=== PATIENT | male | born 1940 | race Caucasian/White ===

== ENCOUNTER → 2017-04-23 | Outpatient (CLI) | payer MEDICARE, OTHER ==
[2017-04-29 10:55] LABS: LDL Size 20.4 nm (>20.5); LDL Size 2 20.4 nm (>=20.8); LDL-P (LDL Particle Number) 1418 nmol/L (<1000); Small LDL (Particle Number) 779 nmol/L (<=527)
== END | disposition home or self-care (01) ==
LOC: LABWHC1 08:31
PROVIDERS: ATTEND Internal Medicine Cardiovascular Disease
DX: I25.10 Atherosclerotic heart disease of native coronary artery without angina pectoris (principal)
CPT/HCPCS: 36415; 83704

== ENCOUNTER 2019-03-16 07:33 | Day surgery (SDC) | payer MEDICARE, OTHER ==
[2019-03-10 16:07] VITALS: BMI 31.1
[~2019-03-16 07:33] MED LIST: LACTATED RINGERS 1,000 ML IV SCH
[2019-03-16 08:16] VITALS: RESP 20; TEMP 97.8
[2019-03-16] MEDS ORDERED: PROPOFOL 10 MG/ML 20 ML VIAL IV ONE (08:22)
[2019-03-16 08:28] LABS: Glucose,Whole Blood 97 mg/dL (75-99)
--- NOTE | 2019-03-16 08:28 | P.GSHP ---
History of Present Illness H&P Date: 03/16/19 Chief Complaint: Blood in stool 78-year-old male had a recent stool study performed showing positive blood. Patient is otherwise asymptomatic. No abdominal pain. No diarrhea or constipation. Denies black stools or bloody stools grossly. Past Medical History Past Medical History: Diabetes Mellitus, Eye Disorder, Hyperlipidemia, Hypertension, Myocardial Infarction ([place]), Osteoarthritis (OA), Prostate Disorder Additional Past Medical History / Comment(s): Macular degeneration. Blood in stool. Catheter after prostate surgery for quite some time, 7-8 yrs ago. Last Myocardial Infarction Date:: 1991 History of Any Multi-Drug Resistant Organisms: None Reported Past Surgical History: Joint Replacement, Orthopedic Surgery, Prostate Surgery Additional Past Surgical History / Comment(s): Nose surgery, knee surgery, right knee replacement. Past Anesthesia/Blood Transfusion Reactions: No Reported Reaction Past Psychological History: No Psychological Hx Reported Smoking Status: Former smoker Past Alcohol Use History: None Reported Additional Past Alcohol Use History / Comment(s): Quit smoking in the . Past Drug Use History: None Reported - Past Family History Father Family Medical History: Cancer Mother Additional Family Medical History / Comment(s): Brain aneurysym. Medications and Allergies Home Medications Medication Instructions Recorded Confirmed Type Aspirin 81 mg PO HS 06/16/14 03/16/19 History Nebivolol HCl [Bystolic] 5 mg PO [facility] 06/16/14 03/16/19 History Preservision 1 tab PO DAILY 06/16/14 03/16/19 History Atorvastatin [Lipitor] 80 mg PO DAILY 03/10/19 03/10/19 History Fenofibrate Nanocrystallized 145 mg PO DAILY 03/10/19 03/16/19 History [Fenofibrate] Glimepiride [Amaryl] 1 mg PO HS 03/10/19 03/16/19 History Allergies Allergy/AdvReac Type Severity Reaction Status Date / Time acetaminophen [From Vicodin] Allergy Itching Verified 03/10/19 15:58 ciprofloxacin [From Cipro] Allergy Rash/Hives Verified 03/10/19 15:58 hydrocodone bitartrate Allergy Itching Verified 03/10/19 15:58 [From Vicodin] Penicillins Allergy Rash/Hives Verified 03/10/19 15:58 Sulfa (Sulfonamide Allergy Rash/Hives Verified 03/10/19 15:58 Antibiotics) sulfamethoxazole Allergy Rash/Hives Verified 03/10/19 15:58 [From Bactrim] trimethoprim [From Bactrim] Allergy Rash/Hives Verified 03/10/19 15:58 Surgical - Exam Vital Signs Temp Pulse Resp BP Pulse Ox 97.8 F 56 L 20 189/81 98 03/16/19 08:09 03/16/19 08:09 03/16/19 08:09 03/16/19 08:09 03/16/19 08:09 Physical exam: General: Well-developed, well-nourished HEENT: Normocephalic, sclerae nonicteric Abdomen: Nontender, nondistended Extremities: No edema Neuro: Alert and oriented Assessment and Plan (1) Blood in stool Narrative/Plan: Will proceed with colonoscopy at this time. Current Visit: Yes Status: Acute Code(s): K92.1 - MELENA SNOMED Code(s): 51058242
--- NOTE | 2019-03-16 08:50 | P.PCN ---
Date of Procedure: 03/16/19 Procedure(s) Performed: PREOPERATIVE DIAGNOSIS: Blood in stool POSTOPERATIVE DIAGNOSIS: Cecal polyp PROCEDURE: Colonoscopy with snare polypectomy ANESTHESIA: MAC SURGEON: Juan Sales M.D. SPECIMENS: Cecal polyp ENDOSCOPIC PROCEDURE: The patient was placed on the endoscopy table in the left decubitus position. The Olympus colonoscope was inserted into the anus and passed under direct visualization to the base of the cecum. The appendiceal orifice was visualized. From that point the scope was slowly withdrawn inspecting all surfaces carefully. At the base of the cecum there was a moderate sized polyp measuring about 1.5-2 cm in size. This was removed using the snare with cautery technique. Thankfully the stalk was fairly narrow. I used a Mckenna net to retrieve this. As I was inspecting the remainder of the cecum, ascending, transverse, descending, sigmoid and rectum I did not identify any abnormalities. There was no visible diverticulosis noted. Digital rectal examination was normal. The patient was taken to the recovery room in stable condition per anesthesia guidelines. RECOMMENDATIONS: Await biopsies results but would anticipate follow-up colonoscopy one to 2 years based on the size of this polyp
[2019-03-16 09:33] VITALS: BP 156/73; PULSE 52
== END 2019-03-16 10:00 | disposition home or self-care (01) ==
LOC: ORWHC2ENDO 07:33
PROVIDERS: ATTEND Surgery
DX: D12.0 Benign neoplasm of cecum (principal); K92.1 Melena; E11.9 Type 2 diabetes mellitus without complications; E78.5 Hyperlipidemia, unspecified; I25.2 Old myocardial infarction; I10 Essential (primary) hypertension; H35.30 Unspecified macular degeneration; I25.10 Atherosclerotic heart disease of native coronary artery without angina pectoris; M19.90 Unspecified osteoarthritis, unspecified site; Z87.891 Personal history of nicotine dependence; Z96.651 Presence of right artificial knee joint; Z88.5 Allergy status to narcotic agent; Z88.2 Allergy status to sulfonamides; Z88.1 Allergy status to other antibiotic agents; Z88.0 Allergy status to penicillin; Z79.84 Long term (current) use of oral hypoglycemic drugs; Z79.82 Long term (current) use of aspirin; Z79.899 Other long term (current) drug therapy; Z88.8 Allergy status to other drugs, medicaments and biological substances
CPT/HCPCS: 88305; 45385; J2704

== ENCOUNTER → 2020-08-22 | Outpatient (CLI) | payer MEDICARE | END | disposition home or self-care (01) | LOC: LABWHC1 09:06 | PROVIDERS: ATTEND Urology | DX: C61 Malignant neoplasm of prostate (principal) | CPT/HCPCS: 36415; 84153 ==

== ENCOUNTER → 2021-04-05 | Outpatient (CLI) | payer MEDICARE ==
--- NOTE | 2021-04-05 16:32 | US ---
EXAMINATION TYPE: US kidneys/renal and bladder DATE OF EXAM: 04/05/2021 COMPARISON: US 2012 CLINICAL HISTORY: N18 CKD. CKD EXAM MEASUREMENTS: Right Kidney: 10.6 x 5.7 x 5.3 cm Left Kidney: 11.4 x 5.5 x 4.7 cm Right Kidney: Appeared wnl no hydronephrosis or renal calculi. Left Kidney: Cyst lower pole= 1.4 x 1.0 x 1.2 cm,. No hydronephrosis or renal calculi. Bladder: Multiple bladder diverticula Bilateral Jets seen: No Incidental finding rim calcified lesion within right lobe of liver= 3.4 x 2.7 x 2.8 cm No evidence of hydronephrosis or renal calculi. IMPRESSION: 1. Multiple urinary bladder diverticula. This may be from chronic outlet obstruction. Clinical correl ation is recommended. 2. Left renal cyst measuring 1.4 cm at the lower pole. 3. No hydronephrosis or renal calculi are seen 4.Incidental finding rim calcified lesion within right lobe of liver= 3.4 x 2.7 x 2.8 cm
== END | disposition home or self-care (01) ==
LOC: RADUSWWP 14:54
PROVIDERS: ATTEND Family Medicine
DX: N28.1 Cyst of kidney, acquired (principal); N32.3 Diverticulum of bladder; N18.9 Chronic kidney disease, unspecified
CPT/HCPCS: 76770

== ENCOUNTER → 2021-04-29 | Outpatient (CLI) | payer MEDICARE ==
--- NOTE | 2021-04-29 20:40 | CT ---
EXAMINATION TYPE: CT abdomen wo con DATE OF EXAM: 04/29/2021 COMPARISON: Ultrasound 04/05/2021 HISTORY: Liver lesion, abdominal pelvic mass CT DLP: 391.10 mGycm Automated exposure control for dose reduction was used. TECHNIQUE: Helical acquisition of images was performed from the lung bases through the top of iliac crest to include entire abdomen. CONTRAST: Performed without Oral Contrast and without IV contrast. FINDINGS: Lack of intravenous contrast could compromise sensitivity. There are dense coronary artery calcifications. LUNG BASES: No significant abnormality is appreciated. LIVER/GB: Partially peripherally calcified low dense focus within the right lobe of the liver is agai n noted and measures approximately 3.2 cm. Additional low dense foci are present within the left lobe and also towards the dome within the right lobe which statistically are likely to represent cysts. L esion at the dome of the liver measures 2.4 cm, lesions in the left lobe are smaller and posterior ri ght lobe lesion is also present adjacent to the calcified focus measuring 16 mm PANCREAS: Bandlike area of dense calcification present within the pancreas region, suspect there may be pancreatic ductal dilation. SPLEEN: No significant abnormality is seen. ADRENALS: No significant abnormality is seen. KIDNEYS: No significant abnormality is seen. BOWEL: No significant abnormality is seen. LYMPH NODES: No significant abnormality is appreciated. OSSEOUS STRUCTURES: No significant abnormality is seen. FREE AIR: No Free Air visible ASCITES: None visible. RETROPERITONEAL ADENOPATHY: No Retroperitoneal Adenopathy visible. OTHER: IMPRESSION: Noncontrast exam. DIFFERENTIAL DIAGNOSTIC CONSIDERATIONS INCLUDE TUBERCULOMA, HYDATID DISEASE, ADDITIONAL PARASITIC INF ECTION, BILIARY CYSTADENOCARCINOMA, HEMANGIOMA. Additional findings above.
== END | disposition home or self-care (01) ==
LOC: RADCTMAIN 17:13
PROVIDERS: ATTEND Family Medicine
DX: K76.9 Liver disease, unspecified (principal)
CPT/HCPCS: 74150

== ENCOUNTER 2021-08-06 07:41 | Day surgery (SDC) | payer MEDICARE ==
[2021-08-01 10:37] VITALS: BMI 26.7
[2021-08-06 08:11] VITALS: RESP 16; TEMP 96.8
[2021-08-06 08:20] LABS: Glucose,Whole Blood 88 mg/dL (75-99)
[2021-08-06] MEDS ORDERED: PROPOFOL 10 MG/ML 20 ML VIAL IV ONE (08:39)
--- NOTE | 2021-08-06 08:39 | P.GSHP ---
History of Present Illness H&P Date: 08/06/21 Chief Complaint: Blood in stool, colon polyp 80-year-old male known to our service from colonoscopy 2 years ago. Patient had a large cecal polyp which showed tubular adenoma with low-grade dysplasia. Recently found to have occult blood in stool. Otherwise without new complaints. Past Medical History Past Medical History: Diabetes Mellitus, Eye Disorder, Hearing Disorder / Deafness, Hyperlipidemia, Hypertension, Myocardial Infarction ([place]), Osteoarthritis (OA), Prostate Disorder, Renal Disease Additional Past Medical History / Comment(s): Macular degeneration, mild renal disease,, hx. colon polyps Last Myocardial Infarction Date:: 1991 History of Any Multi-Drug Resistant Organisms: None Reported Past Surgical History: Heart Catheterization, Joint Replacement, Orthopedic Surgery, Prostate Surgery Additional Past Surgical History / Comment(s): Nose surgery, knee surgery, right knee replacement, TURP, multiple colonoscopies Past Anesthesia/Blood Transfusion Reactions: No Reported Reaction Smoking Status: Former smoker - Past Family History Father Family Medical History: Cancer Mother Additional Family Medical History / Comment(s): Brain aneurysym. Medications and Allergies Home Medications Medication Instructions Recorded Confirmed Type Aspirin 81 mg PO HS 06/16/14 08/06/21 History Vit C/E/Zn/Coppr/Lutein/Zeaxan 1 each PO DAILY 06/16/14 08/06/21 History [Preservision Areds 2 Softgel] Atorvastatin [Lipitor] 80 mg PO DAILY 03/10/19 08/06/21 History Glimepiride [Amaryl] 1 mg PO BID 03/10/19 08/06/21 History Citalopram Hydrobromide 40 mg PO DAILY 08/01/21 08/06/21 History [Citalopram HBr] Losartan/Hydrochlorothiazide 1 tab PO DAILY 08/01/21 08/06/21 History [Losartan-Hctz 100-25 mg Tab] amLODIPine BESYLATE 5 mg PO DAILY 08/01/21 08/06/21 History Allergies Allergy/AdvReac Type Severity Reaction Status Date / Time acetaminophen [From Vicodin] Allergy Itching Verified 08/06/21 08:17 ciprofloxacin [From Cipro] Allergy Rash/Hives Verified 08/06/21 08:17 hydrocodone bitartrate Allergy Itching Verified 08/06/21 08:17 [From Vicodin] Penicillins Allergy Rash/Hives Verified 08/06/21 08:17 Sulfa (Sulfonamide Allergy Rash/Hives Verified 08/06/21 08:17 Antibiotics) sulfamethoxazole Allergy Rash/Hives Verified 08/06/21 08:17 [From Bactrim] trimethoprim [From Bactrim] Allergy Rash/Hives Verified 08/06/21 08:17 Surgical - Exam Vital Signs Temp Pulse Resp BP Pulse Ox 96.8 F L 65 16 142/69 97 08/06/21 08:10 08/06/21 08:10 08/06/21 08:10 08/06/21 08:10 08/06/21 08:10 Physical exam: General: Well-developed, well-nourished HEENT: Normocephalic, sclerae nonicteric Abdomen: Nontender, nondistended Extremities: No edema Neuro: Alert and oriented Assessment and Plan (1) Blood in stool Narrative/Plan: Will proceed with colonoscopy Current Visit: No Status: Acute Code(s): K92.1 - MELENA SNOMED Code(s): 514958749
--- NOTE | 2021-08-06 09:00 | P.PCN ---
Date of Procedure: 08/06/21 Procedure(s) Performed: PREOPERATIVE DIAGNOSIS: Blood in stool, history of cecal polyp POSTOPERATIVE DIAGNOSIS: Small hepatic flexure polyp PROCEDURE: Colonoscopy with biopsy ANESTHESIA: MAC SURGEON: Juan Sales M.D. SPECIMENS: Hepatic flexure polyp ENDOSCOPIC PROCEDURE: The patient was placed on the endoscopy table in the left decubitus position. The Olympus colonoscope was inserted into the anus and passed under direct visualization to the base of the cecum. The appendiceal orifice was visualized. From that point the scope was slowly withdrawn inspecting all surfaces carefully. There were no neoplastic inflammatory or polypoid lesions throughout the cecum or ascending colon. At the hepatic flexure small polyp was seen and removed using the cold biopsy forceps. The base of the cecum did not reveal any residual polypoid tissue. A transverse descending sigmoid and rectum appeared normal. There was no visible diverticulosis. Digital rectal examination was normal. The patient was taken to the recovery room in stable condition per anesthesia guidelines. RECOMMENDATIONS: Await biopsy results. Resume diet. Follow-up colonoscopy 3-5 years.
[2021-08-06 09:23] VITALS: BP 131/70; PULSE 51
[2021-08-06 09:36] LABS: Glucose,Whole Blood 82 mg/dL (75-99)
== END 2021-08-06 09:58 | disposition home or self-care (01) ==
LOC: ORWHC2ENDO 07:41
PROVIDERS: ATTEND Surgery
DX: K92.1 Melena (principal); D12.3 Benign neoplasm of transverse colon; E78.5 Hyperlipidemia, unspecified; E11.9 Type 2 diabetes mellitus without complications; Z87.891 Personal history of nicotine dependence; M19.90 Unspecified osteoarthritis, unspecified site; H35.30 Unspecified macular degeneration; I10 Essential (primary) hypertension; I25.2 Old myocardial infarction; H91.90 Unspecified hearing loss, unspecified ear; Z79.899 Other long term (current) drug therapy; Z88.5 Allergy status to narcotic agent; Z88.0 Allergy status to penicillin; Z88.2 Allergy status to sulfonamides; I25.10 Atherosclerotic heart disease of native coronary artery without angina pectoris
CPT/HCPCS: 88305; 45380; J2704

== ENCOUNTER → 2021-12-25 | Outpatient (CLI) | payer MEDICARE ==
[2021-12-25 11:55] LABS: Appearance,Urine Clear (Clear); Bilirubin,Urine Negative (Negative); Blood,Urine Negative (Negative); Color,Urine Light Yellow; Glucose,Urine (UA) Negative (Negative); Ketones,Urine Negative (Negative); Leukocyte Esterase,Urine Negative (Negative); Nitrite,Urine Negative (Negative); Protein,Urine Negative (Negative); Specific Gravity,Urine 1.015 (1.001-1.035); Urobilinogen,Urine <2.0 mg/dL (<2.0)
[2021-12-25 12:15] LABS: Creatinine,Urine Random 86.5 mg/dL; Protein/Creatinine Ratio,Urine 0.185
[2021-12-25 18:27] LABS: Basophils # (A) 0.05 X 10*3/uL (0.00-0.10); Basophils % (A) 0.8 %; Eosinophils # (A) 0.13 X 10*3/uL (0.04-0.35); Eosinophils % (A) 2.1 %; HCT 38.8 % (39.6-50.0); HGB 12.8 g/dL (13.0-17.0); Immature Grans, Automated 0.2 %; Lymphocytes # (A) 1.64 X 10*3/uL (0.90-5.00); Lymphocytes % (A) 25.9 %; Mean Platelet Volume 10.8 fL (9.5-12.2); Monocytes # (A) 0.52 X 10*3/uL (0.20-1.00); Monocytes % (A) 8.2 %; NRBC Per 100 WBC 0 /100 WBCS (0.0-0.0); Neutrophils # (A) 3.97 X 10*3/uL (1.80-7.70); Neutrophils % (A) 62.8 %; Platelet Count 178 X 10*3/uL (140-440); RDW 12.5 % (11.5-14.5); WBC 6.32 X 10*3/uL (4.50-10.00)
[2021-12-25 18:38] LABS: % Iron Saturation 23.37 (15.00-50.00); African American GFR (CKD) 52.9 (60.0-200.0); Anion Gap 12.9 mmol/L (10.00-18.00); BUN/Creat Ratio 34.2 Ratio (12.00-20.00); Blood Urea Nitrogen 48.9 mg/dL (9.0-27.0); Calcium 9.8 mg/dL (8.7-10.3); Carbon Dioxide 22.2 mmol/L (20.0-27.5); Magnesium 1.9 mg/dL (1.5-2.4); Non-African American GFR(CKD) 45.6 (60.0-200.0); Phosphorus 3.8 mg/dL (2.4-5.1); Potassium 4.2 mmol/L (3.5-5.5); Uric Acid 7.1 mg/dL (3.7-8.7)
[2021-12-25 19:47] LABS: Hepatitis A Antibody IgM Nonreactive (Nonreactive); Hepatitis B Core IgM Nonreactive (Nonreactive); Hepatitis B Surface Antigen Nonreactive (Nonreactive); Hepatitis C IgG Antibody Nonreactive (Nonreactive)
[2021-12-25 22:00] LABS: Anti-DNA, DS unit <1.0 IU/mL; DNA Double-Stranded NEGATIVE (NEGATIVE)
[2021-12-25 22:07] LABS: Albumin 4.2 g/dL (3.8-4.9)
[2021-12-25 22:37] LABS: HIV 2 AB Non-Reactive (Non-Reactive); HIV AB P24 Non-Reactive (Non-Reactive); HIV P24 AG Non-Reactive (Non-Reactive)
[2021-12-26 11:14] LABS: Free Lambda Lt Chain Qnt, Seru 2.72 mg/dL (0.57-2.63)
[2021-12-26 13:04] LABS: C-ANCA <1:20 Titer (<1:20)
== END | disposition home or self-care (01) ==
LOC: LABWHC1 10:12
PROVIDERS: ATTEND Internal Medicine Nephrology
DX: R80.9 Proteinuria, unspecified (principal); N18.31 Chronic kidney disease, stage 3a
CPT/HCPCS: 36415; 80048; 80074; 81003; 82040; 82306; 82570; 82728; 83516; 83540; 83550; 83735; 83883; 83970; 84100; 84156; 84550; 85025; 86038; 86039; 86160; 86162; 86225; 86255; 86334; 87390

== ENCOUNTER 2022-11-13 03:12 | Inpatient (IN) | payer MEDICARE ==
[2022-11-13 03:19] LABS: Glucose,Whole Blood 31 mg/dL (70-110)
[2022-11-13] MEDS: DEXTROSE 50% SYRINGE 50 ML IVP STA ×4 (03:22→11:33)
[2022-11-13 03:47] LABS: Glucose,Whole Blood 108 mg/dL (70-110)
[2022-11-13 03:49] LABS: Basophils % (A) 0 %; Eosinophils # (A) 0.1 k/uL (0-0.7); Eosinophils % (A) 1 %; HCT 36.6 % (39.0-53.0); HGB 13.2 gm/dL (13.0-17.5); Lymphocytes # (A) 0.5 k/uL (1.0-4.8); Lymphocytes % (A) 7 %; MCH 33.2 pg (25.0-35.0); MCHC 35.9 g/dL (31.0-37.0); MCV 92.5 fL (80.0-100.0); Mean Platelet Volume 8.7; Monocytes # (A) 0.7 k/uL (0-1.0); Monocytes % (A) 10 %; Neutrophils # (A) 5.2 k/uL (1.3-7.7); Neutrophils % (A) 79 %; Platelet Count 140 k/uL (150-450); RBC 3.96 m/uL (4.30-5.90); RDW 12.7 % (11.5-15.5); WBC 6.6 k/uL (3.8-10.6)
[2022-11-13 04:06] LABS: Albumin 3.8 g/dL (3.5-5.0); Calcium 8.2 mg/dL (8.4-10.2); Magnesium 1.4 mg/dL (1.6-2.3); Potassium 3.1 mmol/L (3.5-5.1); Total Bilirubin 0.7 mg/dL (0.2-1.3); Total Protein 6.6 g/dL (6.3-8.2)
[2022-11-13 04:17] LABS: Glucose,Whole Blood 73 mg/dL (70-110)
[2022-11-13 04:48] LABS: Glucose,Whole Blood 41 mg/dL (70-110)
[2022-11-13] MEDS ORDERED: DEXTROSE 50% SYRINGE 50 ML IVP STA ×4 (04:48→14:55)
[2022-11-13] MEDS: MAGNESIUM SULFATE-D5W PMX 1 GM in DEXTROSE/WATER 1 100ML.BAG IVPB SCH ×2 (05:29→06:38)
[2022-11-13 05:30] LABS: Glucose,Whole Blood 82 mg/dL (70-110)
[2022-11-13] MEDS: POTASSIUM CHLORIDE 10 MEQ in WATER FOR INJECTION 1 100ML.BAG IVPB SCH ×4 (05:48→11:35)
[2022-11-13 06:02] LABS: Appearance,Urine Clear (Clear); Bacteria,Urine Rare /hpf; Bilirubin,Urine Negative (Negative); Blood,Urine Trace (Negative); Color,Urine Light Yellow; Glucose,Urine (UA) Negative (Negative); Ketones,Urine Negative (Negative); Leukocyte Esterase,Urine Negative (Negative); Mucus,Urine Rare /hpf; Nitrite,Urine Negative (Negative); Protein,Urine 1+ (Negative); RBC,Urine 1 /hpf (0-5); Specific Gravity,Urine 1.014 (1.001-1.035); Squamous Epithelial Cell,Urine <1 /hpf (0-4); Urobilinogen,Urine <2.0 mg/dL (<2.0); WBC,Urine 1 /hpf (0-5)
[2022-11-13 06:10] LABS: Glucose,Whole Blood 53 mg/dL (70-110)
[2022-11-13] MEDS ORDERED: NALOXONE 0.4 MG/ML 1 ML VIAL IV PRN (06:14)
--- NOTE | 2022-11-13 06:14 | ED ---
General Adult HPI - General Chief complaint: Recheck/Abnormal Lab/Rx Stated complaint: hypoglycemia Time Seen by Provider: 11/13/22 03:21 Source: EMS Mode of arrival: EMS Limitations: no limitations - History of Present Illness Initial comments: This is an 82-year-old male with a past medical history including diabetes and hypertension presented emergency department for episodes of hypoglycemia. The patient stated that he has had episodes of hypoglycemia today and noted to be weak, unable to stand so he called EMS. EMS did state that the sugar was approximately 28. The patient did receive an half an amp of D50 prior to arrival but had continued hypoglycemia. The patient was given amp here in the emergency department on evaluation. The patient continued to state that he did not have any further acute pain or complaints however the patient's daughter was at the bedside and did state the patient has had decreased by mouth intake over the last several days and at one point had not eaten anything within 36 hours. She did note that the patient's glucose was rapidly and consistent a decreasing so she was 1 a called 911 at home. The patient continued to remain stable did not take any more than his prescribed antidiabetic medications. The patient is not on insulin. The patient denied any nausea, vomiting, fevers and chills. - Related Data Home Medications Medication Instructions Recorded Confirmed Aspirin 81 mg PO HS 06/16/14 08/06/21 Vit C/E/Zn/Coppr/Lutein/Zeaxan 1 each PO DAILY 06/16/14 08/06/21 [Preservision Areds 2 Softgel] Atorvastatin [Lipitor] 80 mg PO DAILY 03/10/19 08/06/21 Glimepiride [Amaryl] 1 mg PO BID 03/10/19 08/06/21 Citalopram Hydrobromide 40 mg PO DAILY 08/01/21 08/06/21 [Citalopram HBr] Losartan/Hydrochlorothiazide 1 tab PO DAILY 08/01/21 08/06/21 [Losartan-Hctz 100-25 mg Tab] amLODIPine BESYLATE 5 mg PO DAILY 08/01/21 08/06/21 Allergies Allergy/AdvReac Type Severity Reaction Status Date / Time acetaminophen [From Vicodin] Allergy Itching Verified 08/06/21 08:17 ciprofloxacin [From Cipro] Allergy Rash/Hives Verified 08/06/21 08:17 hydrocodone bitartrate Allergy Itching Verified 08/06/21 08:17 [From Vicodin] Penicillins Allergy Rash/Hives Verified 08/06/21 08:17 Sulfa (Sulfonamide Allergy Rash/Hives Verified 08/06/21 08:17 Antibiotics) sulfamethoxazole Allergy Rash/Hives Verified 08/06/21 08:17 [From Bactrim] trimethoprim [From Bactrim] Allergy Rash/Hives Verified 08/06/21 08:17 Review of Systems ROS Statement: Those systems with pertinent positive or pertinent negative responses have been documented in the HPI. ROS Other: All systems not noted in ROS Statement are negative. Past Medical History Past Medical History: Diabetes Mellitus, Eye Disorder, Hyperlipidemia, Hypertension, Myocardial Infarction ([place]), Osteoarthritis (OA), Prostate Disorder Additional Past Medical History / Comment(s): Macular degeneration. Blood in stool. Catheter after prostate surgery for quite some time, 7-8 yrs ago. Last Myocardial Infarction Date:: 1991 History of Any Multi-Drug Resistant Organisms: None Reported Past Surgical History: Joint Replacement, Orthopedic Surgery, Prostate Surgery Additional Past Surgical History / Comment(s): Nose surgery, knee surgery, right knee replacement. Past Anesthesia/Blood Transfusion Reactions: No Reported Reaction Past Psychological History: No Psychological Hx Reported Past Alcohol Use History: None Reported Past Drug Use History: None Reported - Past Family History Father Family Medical History: Cancer Mother Additional Family Medical History / Comment(s): Brain aneurysym. General Exam Limitations: no limitations General appearance: alert, in no apparent distress Head exam: Present: atraumatic, normocephalic, normal inspection Eye exam: Present: normal appearance, PERRL Pupils: Present: normal accommodation ENT exam: Present: normal exam, normal oropharynx, mucous membranes moist Neck exam: Present: normal inspection, full ROM Respiratory exam: Present: normal lung sounds bilaterally Cardiovascular Exam: Present: regular rate, normal rhythm, normal heart sounds GI/Abdominal exam: Present: soft, normal bowel sounds Extremities exam: Present: normal inspection, full ROM Back exam: Present: normal inspection, full ROM Neurological exam: Present: alert, oriented X3, CN II-XII intact Psychiatric exam: Present: normal affect, normal mood Skin exam: Present: warm, dry Course Vital Signs 11/13/22 11/13/22 11/13/22 03:21 03:28 05:32 Temperature 98.1 F Pulse Rate 79 72 86 Respiratory 16 16 16 Rate Blood Pressure 140/75 164/72 O2 Sat by Pulse 99 96 95 Oximetry Medical Decision Making - Medical Decision Making Was pt. sent in by a medical professional or institution? @ -No Did you speak to anyone other than the patient for history? @ -Yes, patient's daughter Did you review nursing and triage notes? @ -Nursing triage notes were reviewed Were old charts reviewed? @ -No Differential Diagnosis? @ -Medication overdose, drug ingestion, acute infection EKG interpreted by me (3pts min.)? @ -[none] X-rays interpreted by me (1pt min.)? @ -[none] CT interpreted by me (1pt min.)? @ -[none] U/S interpreted by me (1pt. min.)? @ -[none] What testing was considered but not performed? (CT, X-rays, U/S, labs)? Why? @X-rays were considered however the patient didn't have any further symptoms other than isolated hyperglycemia therefore no further testing or imaging was obtained at this time. What meds were considered but not given? Why? @ -[none] Did you discuss the management of the patient with other professionals? @ -Yes, the admitting physician Did you reconcile home meds? @ -[none] Was smoking cessation discussed for >3mins.? @ -[none] Was critical care preformed (if so, how long)? @ -[none] Were there social determinants of health that impacted care today? How? (Homelessness, low income, unemployed, alcoholism, drug addiction, transportation, low edu. Level, literacy, decrease access to med. care, penitentiary, rehab)? @ -No Was there de-escalation of care discussed even if they declined? (Discuss DNR or withdrawal of care, Hospice)? @ -No What co-morbidities impacted this encounter? (DM, HTN, Smoking, COPD, CAD, Cancer, CVA, Hep., AIDS, mental health diagnosis, sleep apnea, morbid obesity)? @ -Diabetes, hypertension Was patient admitted / discharged? @ -The patient was seen and evaluated emergency department. Physical exam, the patient was resting in bed without any acute distress however the patient's glucose was 31. The patient did receive an amp of D50. The patient did receive a half an amp per EMS however the patient's glucose continued to decrease. Laboratory workup was obtained that showed an increased creatinine consistent with an EFRAÍN. The patient continued to have episodes of hypoglycemia despite its to amps of D50. Because the patient continued episodes of hypoglycemia, in the setting of EFRAÍN and decreased PO intake, the patient did require inpatient management and evaluation. The patient did have his primary care physician's covering physician, contacted and he did accept the patient for admission at [id number]. The patient and his daughter were told this plan and were agreeable. The patient was admitted in stable condition. Undiagnosed new problem with uncertain prognosis? @ -[none] Drug Therapy requiring intensive monitoring for toxicity (Heparin, Nitro, Insulin, Cardizem)? @ -[none] Were any procedures done? @ -[none] Diagnosis/symptom? @ -Recurrent hypoglycemia Acute, or Chronic, or Acute on Chronic? @ -Acute Uncomplicated (without systemic symptoms) or Complicated (systemic symptoms)? @ -Complicated Side effects of treatment? @ -[none] Exacerbation, Progression, or Severe Exacerbation] @ -[no] Poses a threat to life or bodily function? @ -Yes Diagnosis/symptom? @ -EFRAÍN Acute, or Chronic, or Acute on Chronic? @ -Acute Uncomplicated (without systemic symptoms) or Complicated (systemic symptoms)? @ -Uncomplicated Side effects of treatment? @ -[none] Exacerbation, Progression, or Severe Exacerbation] @ -[no] Poses a threat to life or bodily function? @ -[no] - Lab Data Result diagrams: 11/13/22 03:27 11/13/22 03:27 Lab Results 11/13/22 11/13/22 11/13/22 Range/Units 03:18 03:27 03:27 WBC 6.6 (3.8-10.6) k/uL RBC 3.96 L (4.30-5.90) m/uL Hgb 13.2 (13.0-17.5) gm/dL Hct 36.6 L (39.0-53.0) % MCV 92.5 (80.0-100.0) fL MCH 33.2 (25.0-35.0) pg MCHC 35.9 (31.0-37.0) g/dL RDW 12.7 (11.5-15.5) % Plt Count 140 L (150-450) k/uL MPV 8.7 Neutrophils % 79 % Lymphocytes % 7 % Monocytes % 10 % Eosinophils % 1 % Basophils % 0 % Neutrophils # 5.2 (1.3-7.7) k/uL Lymphocytes # 0.5 L (1.0-4.8) k/uL Monocytes # 0.7 (0-1.0) k/uL Eosinophils # 0.1 (0-0.7) k/uL Basophils # 0.0 (0-0.2) k/uL Sodium (137-145) mmol/L Potassium (3.5-5.1) mmol/L Chloride (98-107) mmol/L Carbon Dioxide (22-30) mmol/L Anion Gap mmol/L BUN (9-20) mg/dL Creatinine (0.66-1.25) mg/dL Est GFR (CKD-EPI)AfAm (>60 ml/min/1.73 sqM) Est GFR (CKD-EPI)NonAf (>60 ml/min/1.73 sqM) Glucose (74-99) mg/dL POC Glucose (mg/dL) 31 L (70-110) mg/dL POC Glu [employer] Super[employer] ID Leah Arias Calcium (8.4-10.2) mg/dL Magnesium (1.6-2.3) mg/dL Total Bilirubin (0.2-1.3) mg/dL AST (17-59) U/L ALT (4-49) U/L Alkaline Phosphatase (38-126) U/L Total Protein (6.3-8.2) g/dL Albumin (3.5-5.0) g/dL Urine Color Light Yellow Urine Appearance Clear (Clear) Urine pH 5.0 (5.0-8.0) Ur Specific [place] 1.014 (1.001-1.035) Urine Protein 1+ H (Negative) Urine Glucose (UA) Negative (Negative) Urine Ketones Negative (Negative) Urine Blood Trace H (Negative) Urine Nitrite Negative (Negative) Urine Bilirubin Negative (Negative) Urine Urobilinogen <2.0 (<2.0) mg/dL Ur Leukocyte Esterase Negative (Negative) Urine RBC 1 (0-5) /hpf Urine WBC 1 (0-5) /hpf Ur Squamous Epith Cells <1 (0-4) /hpf Urine Bacteria Rare H (None) /hpf Urine Mucus Rare H (None) /hpf 12/29/22 12/29/22 12/29/22 Range/Units 03:27 03:44 04:16 WBC (3.8-10.6) k/uL RBC (4.30-5.90) m/uL Hgb (13.0-17.5) gm/dL Hct (39.0-53.0) % MCV (80.0-100.0) fL MCH (25.0-35.0) pg MCHC (31.0-37.0) g/dL RDW (11.5-15.5) % Plt Count (150-450) k/uL MPV Neutrophils % % Lymphocytes % % Monocytes % % Eosinophils % % Basophils % % Neutrophils # (1.3-7.7) k/uL Lymphocytes # (1.0-4.8) k/uL Monocytes # (0-1.0) k/uL Eosinophils # (0-0.7) k/uL Basophils # (0-0.2) k/uL Sodium 138 (137-145) mmol/L Potassium 3.1 L (3.5-5.1) mmol/L Chloride 106 (98-107) mmol/L Carbon Dioxide 22 (22-30) mmol/L Anion Gap 10 mmol/L BUN 95 H (9-20) mg/dL Creatinine 2.51 H (0.66-1.25) mg/dL Est GFR (CKD-EPI)AfAm 27 (>60 ml/min/1.73 sqM) Est GFR (CKD-EPI)NonAf 23 (>60 ml/min/1.73 sqM) Glucose 26 L* (74-99) mg/dL POC Glucose (mg/dL) 108 73 (70-110) mg/dL POC Glu [employer] Supervisor ID Arias, Leah Arias, Leah Calcium 8.2 L (8.4-10.2) mg/dL Magnesium 1.4 L (1.6-2.3) mg/dL Total Bilirubin 0.7 (0.2-1.3) mg/dL AST 83 H (17-59) U/L ALT 102 H (4-49) U/L Alkaline Phosphatase 61 (38-126) U/L Total Protein 6.6 (6.3-8.2) g/dL Albumin 3.8 (3.5-5.0) g/dL Urine Color Urine Appearance (Clear) Urine pH (5.0-8.0) Ur Specific [place] (1.001-1.035) Urine Protein (Negative) Urine Glucose (UA) (Negative) Urine Ketones (Negative) Urine Blood (Negative) Urine Nitrite (Negative) Urine Bilirubin (Negative) Urine Urobilinogen (<2.0) mg/dL Ur Leukocyte Esterase (Negative) Urine RBC (0-5) /hpf Urine WBC (0-5) /hpf Ur Squamous Epith Cells (0-4) /hpf Urine Bacteria (None) /hpf Urine Mucus (None) /hpf 11/13/22 11/13/22 Range/Units 04:46 05:28 WBC (3.8-10.6) k/uL RBC (4.30-5.90) m/uL Hgb (13.0-17.5) gm/dL Hct (39.0-53.0) % MCV (80.0-100.0) fL MCH (25.0-35.0) pg MCHC (31.0-37.0) g/dL RDW (11.5-15.5) % Plt Count (150-450) k/uL MPV Neutrophils % % Lymphocytes % % Monocytes % % Eosinophils % % Basophils % % Neutrophils # (1.3-7.7) k/uL Lymphocytes # (1.0-4.8) k/uL Monocytes # (0-1.0) k/uL Eosinophils # (0-0.7) k/uL Basophils # (0-0.2) k/uL Sodium (137-145) mmol/L Potassium (3.5-5.1) mmol/L Chloride (98-107) mmol/L Carbon Dioxide (22-30) mmol/L Anion Gap mmol/L BUN (9-20) mg/dL Creatinine (0.66-1.25) mg/dL Est GFR (CKD-EPI)AfAm (>60 ml/min/1.73 sqM) Est GFR (CKD-EPI)NonAf (>60 ml/min/1.73 sqM) Glucose (74-99) mg/dL POC Glucose (mg/dL) 41 L 82 (70-110) mg/dL POC Glu [employer] Supervisor ID Arias, Leah Arias, Leah Calcium (8.4-10.2) mg/dL Magnesium (1.6-2.3) mg/dL Total Bilirubin (0.2-1.3) mg/dL AST (17-59) U/L ALT (4-49) U/L Alkaline Phosphatase (38-126) U/L Total Protein (6.3-8.2) g/dL Albumin (3.5-5.0) g/dL Urine Color Urine Appearance (Clear) Urine pH (5.0-8.0) Ur Specific [place] (1.001-1.035) Urine Protein (Negative) Urine Glucose (UA) (Negative) Urine Ketones (Negative) Urine Blood (Negative) Urine Nitrite (Negative) Urine Bilirubin (Negative) Urine Urobilinogen (<2.0) mg/dL Ur Leukocyte Esterase (Negative) Urine RBC (0-5) /hpf Urine WBC (0-5) /hpf Ur Squamous Epith Cells (0-4) /hpf Urine Bacteria (None) /hpf Urine Mucus (None) /hpf Disposition Clinical Impression: Hypoglycemia, EFRAÍN (acute kidney injury) Disposition: ADMITTED IP TO THIS [facility] Condition: Stable Is patient prescribed a controlled substance at d/c from ED?: No Referrals: Nonstaff,Physician [Primary Care Provider] - 1-2 days Time of Disposition: 05:00 Decision to Admit Reason: Admit from EC Decision Date: 11/13/22 Decision Time: 05:00
[2022-11-13 06:47] LABS: Glucose,Whole Blood 44 mg/dL (70-110)
[2022-11-13] MEDS ORDERED: DEXTROSE 10% IN WATER 1,000 ML with SODIUM CHLORIDE 4MEQ/ML VIAL 77 MEQ IV ONE (06:49)
[2022-11-13 07:21] LABS: Glucose,Whole Blood 105 mg/dL (70-110)
[2022-11-13] MEDS: DEXTROSE 5%-0.9% NACL 1,000 ML IV SCH ×2 (07:32→21:56)
[2022-11-13 08:04] LABS: Glucose,Whole Blood 47 mg/dL (70-110)
[2022-11-13 08:23] LABS: Glucose,Whole Blood 218 mg/dL (70-110)
[2022-11-13 08:50] LABS: Glucose,Whole Blood 123 mg/dL (70-110)
[2022-11-13 09:22] LABS: Glucose,Whole Blood 79 mg/dL (70-110)
[2022-11-13 10:05] LABS: Glucose,Whole Blood 67 mg/dL (70-110)
[2022-11-13] MEDS: DEXTROSE 10% IN WATER 1,000 ML in EMPTY BAG 1 BAG IV SCH (10:26)
[2022-11-13 10:27] LABS: Glucose,Whole Blood 100 mg/dL (70-110)
[2022-11-13 10:55] LABS: Glucose,Whole Blood 79 mg/dL (70-110)
[2022-11-13 11:29] LABS: Glucose,Whole Blood 63 mg/dL (70-110)
[2022-11-13 11:53] LABS: Glucose,Whole Blood 149 mg/dL (70-110)
[2022-11-13 12:11] LABS: Glucose,Whole Blood 89 mg/dL (70-110)
--- NOTE | 2022-11-13 12:11 | P.NPCON ---
History of Present Illness - Reason for Consult acute renal failure, chronic renal failure - History of Present Illness Reason for consultation: Acute kidney injury on chronic kidney disease History of present illness: Patient is a 82-year-old male seen in renal consultation for acute kidney injury on chronic kidney disease. Patient has chronic kidney disease stage IIIA with baseline creatinine near 1.4 secondary to nephrosclerosis and diabetic kidney disease. Patient's serologies from December 2021 were negative except for positive MAYELIN. Patient states his blood sugars have been low and was as low as 35 at 3 AM today. Patient called EMS and was given glucose. Patient's blood sugar was noted to be as low as 26 this admission. Patient has received multiple amps of dextrose with improvement in blood sugar but then drops again. Patient's creatinine on admission was 2.51. Has been waiting. Denies gross hematuria. Denies use of nonsteroidals. Was taking losartan as well as thiazide diuretic at home which are both currently held. Currently receiving IV fluids. Denies fever or chills. Blood pressure stable. On room air. Vital signs are stable. General: Awake. No acute distress. HEENT: Head exam is unremarkable. LUNGS: Breath sounds decreased. HEART: Rate and Rhythm are regular. ABDOMEN: Soft, no distention. EXTREMITITES: No edema. Past Medical History Past Medical History: Diabetes Mellitus, Eye Disorder, Hyperlipidemia, Hypertension, Myocardial Infarction ([place]), Osteoarthritis (OA), Prostate Disorder Additional Past Medical History / Comment(s): Macular degeneration. Blood in stool. Catheter after prostate surgery for quite some time, 7-8 yrs ago. Last Myocardial Infarction Date:: 1991 History of Any Multi-Drug Resistant Organisms: None Reported Past Surgical History: Joint Replacement, Orthopedic Surgery, Prostate Surgery Additional Past Surgical History / Comment(s): Nose surgery, knee surgery, right knee replacement. Past Anesthesia/Blood Transfusion Reactions: No Reported Reaction Past Psychological History: No Psychological Hx Reported Past Alcohol Use History: None Reported Past Drug Use History: None Reported - Past Family History Father Family Medical History: Cancer Mother Additional Family Medical History / Comment(s): Brain aneurysym. Medications and Allergies Home Medications Medication Instructions Recorded Confirmed Type Aspirin 81 mg PO DAILY 06/16/14 11/13/22 History Vit C/E/Zn/Coppr/Lutein/Zeaxan 1 cap PO BID 06/16/14 11/13/22 History [Preservision Areds 2 Softgel] Atorvastatin [Lipitor] 80 mg PO DAILY 03/10/19 11/13/22 History Glimepiride [Amaryl] 1 mg PO BID 03/10/19 11/13/22 History Citalopram Hydrobromide 40 mg PO DAILY 08/01/21 11/13/22 History [Citalopram HBr] Losartan/Hydrochlorothiazide 1 tab PO DAILY 08/01/21 11/13/22 History [Losartan-Hctz 100-25 mg Tab] amLODIPine BESYLATE 5 mg PO DAILY PRN 08/01/21 11/13/22 History Cholecalciferol (Vitamin D3) 75 mcg PO DAILY 11/13/22 11/13/22 History [Vitamin D3 (3000 Iu)] Mirabegron [Myrbetriq] 50 mg PO DAILY 11/13/22 11/13/22 History Vitamin B Complex 1 cap PO DAILY 11/13/22 11/13/22 History Allergies Allergy/AdvReac Type Severity Reaction Status Date / Time ciprofloxacin [From Cipro] Allergy Rash/Hives Verified 11/13/22 07:55 hydrocodone bitartrate Allergy Itching Verified 11/13/22 07:55 [From Vicodin] Penicillins Allergy Rash/Hives Verified 11/13/22 07:55 Sulfa (Sulfonamide Allergy Rash/Hives Verified 11/13/22 07:55 Antibiotics) sulfamethoxazole Allergy Rash/Hives Verified 11/13/22 07:55 [From Bactrim] trimethoprim [From Bactrim] Allergy Rash/Hives Verified 11/13/22 07:55 Physical Exam Vitals: Vital Signs Temp Pulse Resp BP Pulse Ox 11/13/22 10:19 71 20 146/74 11/13/22 09:00 76 22 140/70 95 11/13/22 08:42 99.2 F 90 18 169/74 95 11/13/22 08:00 99.4 F 77 18 156/78 94 L 11/13/22 07:38 75 18 165/74 94 L 11/13/22 06:00 98.4 F 76 16 152/75 95 11/13/22 05:32 86 16 164/72 95 11/13/22 03:28 72 16 96 11/13/22 03:21 98.1 F 79 16 140/75 99 Intake and Output 11/12/22 11/13/22 11/13/22 22:59 06:59 14:59 Other: Weight 86.183 kg Results - Lab Results Most recent lab results Calcium 8.2 mg/dL (8.4-10.2) L 11/13/22 03:27 Magnesium 1.4 mg/dL (1.6-2.3) L 11/13/22 03:27 11/13/22 03:27 11/13/22 03:27 Assessment and Plan Plan: Assessment: 1. Acute kidney injury mostly prerenal secondary to poor intake and further worsened with the use of RYAN inhibitor and diuretic. Creatinine 2.51 on admission. 2. Hypokalemia from poor intake and diuretic use. 3. Hypomagnesemia from poor intake and diuretic use. 4. Diabetes with hypoglycemia. 5. Hypertension with chronic kidney disease. Stable. 6. Chronic kidney disease stage IIIB with baseline creatinine near 1.4 secondar y to nephrosclerosis and diabetic kidney disease. Serologies in the past have been negative except for positive MAYELIN. Plan: Start D5 normal saline at 75 mL an hour. Potassium and magnesium replaced. Hold RYAN inhibitor and diuretics. Check renal ultrasound. Check bladder scan to rule out urinary retention. Avoid nephrotoxins. Continue to monitor renal function and urine output. Thank you for the consultation. I will continue to follow the patient with you during his hospital stay.
[2022-11-13 12:55] LABS: Glucose,Whole Blood 48 mg/dL (70-110)
--- NOTE | 2022-11-13 13:10 | US ---
EXAMINATION TYPE: US kidneys/renal and bladder DATE OF EXAM: 11/13/2022 COMPARISON: NONE CLINICAL HISTORY: bony. bony EXAM MEASUREMENTS: Right Kidney: 9.6 x 4.7 x 5.0 cm Left Kidney: 10.5 x 5.6 x 4.6 cm Right Kidney: No hydronephrosis or masses seen Left Kidney: Renal cyst from previous not well seen on today's study. Bladder: anechoic diverticuli . Urinary bladder wall thickening may be present. This could be related to nondistention. Bilateral Jets seen: Yes IMPRESSION: 1. Urinary bladder may have thickened wall and urinary bladder diverticuli. Correlate for neurogenic bladder. 2. Minimal ultrasound otherwise appears unremarkable.
[2022-11-13 13:33] LABS: Glucose,Whole Blood 145 mg/dL (70-110)
[2022-11-13 14:09] LABS: Glucose,Whole Blood 80 mg/dL (70-110)
[2022-11-13 14:47] LABS: Glucose,Whole Blood 58 mg/dL (70-110)
[2022-11-13] MEDS ORDERED: amLODIPine 5 MG TAB PO PRN (15:10)
--- NOTE | 2022-11-13 15:14 | P.HPIM ---
History of Present Illness H&P Date: 11/13/22 Chief Complaint: low blood sugars 82-year-old male with a past medical history including diabetes on oral hypoglycemics ''glimipiride'' and hypertension presented emergency department for episodes of hypoglycemia. The patient stated that he has had episodes of hypoglycemia today and noted to be weak, unable to stand so he called EMS. EMS did state that the sugar was approximately 28. The patient did receive D50 prior to arrival to the ER and in the ER due to continued hypoglycemia. He was started on D5W gtt. He continued to ahve low glucose despite that. Patient states that recently over the past several days he has been sick with diarrhea, vomiting, and flulike symptoms including cough since last Thursday. He has not been eating or drinking much due to being sick. He denied having any fever..The patient continued to take his prescribed antidiabetic medications. Review of Systems Complete review of system performed, pertinent positives per HPI, otherwise negative Past Medical History Past Medical History: Diabetes Mellitus, Eye Disorder, Hyperlipidemia, Hypertension, Myocardial Infarction (AL), Osteoarthritis (OA), Prostate Disorder Additional Past Medical History / Comment(s): Macular degeneration. Blood in stool. Catheter after prostate surgery for quite some time, 7-8 yrs ago. Last Myocardial Infarction Date:: 1991 History of Any Multi-Drug Resistant Organisms: None Reported Past Surgical History: Joint Replacement, Orthopedic Surgery, Prostate Surgery Additional Past Surgical History / Comment(s): Nose surgery, knee surgery, right knee replacement. Past Anesthesia/Blood Transfusion Reactions: No Reported Reaction Past Psychological History: No Psychological Hx Reported Past Alcohol Use History: None Reported Past Drug Use History: None Reported - Past Family History Father Family Medical History: Cancer Mother Additional Family Medical History / Comment(s): Brain aneurysym. Medications and Allergies Home Medications Medication Instructions Recorded Confirmed Type Aspirin 81 mg PO DAILY 06/16/14 11/13/22 History Vit C/E/Zn/Coppr/Lutein/Zeaxan 1 cap PO BID 06/16/14 11/13/22 History [Preservision Areds 2 Softgel] Atorvastatin [Lipitor] 80 mg PO DAILY 03/10/19 11/13/22 History Glimepiride [Amaryl] 1 mg PO BID 03/10/19 11/13/22 History Citalopram Hydrobromide 40 mg PO DAILY 08/01/21 11/13/22 History [Citalopram HBr] Losartan/Hydrochlorothiazide 1 tab PO DAILY 08/01/21 11/13/22 History [Losartan-Hctz 100-25 mg Tab] amLODIPine BESYLATE 5 mg PO DAILY PRN 08/01/21 11/13/22 History Cholecalciferol (Vitamin D3) 75 mcg PO DAILY 11/13/22 11/13/22 History [Vitamin D3 (3000 Iu)] Mirabegron [Myrbetriq] 50 mg PO DAILY 11/13/22 11/13/22 History Vitamin B Complex 1 cap PO DAILY 11/13/22 11/13/22 History Allergies Allergy/AdvReac Type Severity Reaction Status Date / Time ciprofloxacin [From Cipro] Allergy Rash/Hives Verified 11/13/22 07:55 hydrocodone bitartrate Allergy Itching Verified 11/13/22 07:55 [From Vicodin] Penicillins Allergy Rash/Hives Verified 11/13/22 07:55 Sulfa (Sulfonamide Allergy Rash/Hives Verified 11/13/22 07:55 Antibiotics) sulfamethoxazole Allergy Rash/Hives Verified 11/13/22 07:55 [From Bactrim] trimethoprim [From Bactrim] Allergy Rash/Hives Verified 11/13/22 07:55 Physical Exam Vitals: Vital Signs Temp Pulse Resp BP Pulse Ox 11/13/22 10:19 71 20 146/74 11/13/22 09:00 76 22 140/70 95 11/13/22 08:42 99.2 F 90 18 169/74 95 11/13/22 08:00 99.4 F 77 18 156/78 94 L 11/13/22 07:38 75 18 165/74 94 L 11/13/22 06:00 98.4 F 76 16 152/75 95 11/13/22 05:32 86 16 164/72 95 11/13/22 03:28 72 16 96 11/13/22 03:21 98.1 F 79 16 140/75 99 Intake and Output 11/13/22 11/13/22 11/13/22 06:59 14:59 22:59 Other: Weight 86.183 kg Constitutional: No acute distress, conversant, pleasant Eyes:Anicteric sclerae, moist conjunctiva, no lid-lag, PERRLA, ENMT: Oropharynx clear, no erythema, exudates Neck: Supple, FROM, no masses, or JVD, No carotid bruits, No thyromegaly Lungs: Clear to auscultation, Clear to percussion, Normal respiratory effort, no accessory muscle use Cardiovascular: Heart regular in rate and rhythm, No murmurs, gallops, or rubs, No peripheral edema Abdominal: Soft, Nontender, no guarding, rebound or rigidity, Normoactive bowel sounds, No hepatomegaly, No splenomegaly, No palpable mass Skin: Normal temperature, tone, texture, turgor, no induration, No subcutaneous nodules, No rash, lesions, No ulcers Extremities: No digital cyanosis, No clubbing, Pedal pulses intact and symmetrical, Radial pulses intact and symmetrical, No calf tenderness Psychiatric: Alert and oriented to person, place and time, appropriate affect, intact judgement Neuro: Muscles Strength 5/5 in all 4 extremities, Sensation to light touch grossly present throughout, Cranial nerves II-XII grossly intact, no focal sensory deficits Results CBC & Chem 7: 11/13/22 03:27 11/13/22 03:27 Labs: Abnormal Lab Results - Last 24 Hours (Table) 11/13/22 11/13/22 11/13/22 Range/Units 03:18 03:27 03:27 RBC 3.96 L (4.30-5.90) m/uL Hct 36.6 L (39.0-53.0) % Plt Count 140 L (150-450) k/uL Lymphocytes # 0.5 L (1.0-4.8) k/uL Potassium (3.5-5.1) mmol/L BUN (9-20) mg/dL Creatinine (0.66-1.25) mg/dL Glucose (74-99) mg/dL POC Glucose (mg/dL) 31 L (70-110) mg/dL Calcium (8.4-10.2) mg/dL Magnesium (1.6-2.3) mg/dL AST (17-59) U/L ALT (4-49) U/L Urine Protein 1+ H (Negative) Urine Blood Trace H (Negative) Urine Bacteria Rare H (None) /hpf Urine Mucus Rare H (None) /hpf 11/13/22 11/13/22 11/13/22 Range/Units 03:27 04:46 06:09 RBC (4.30-5.90) m/uL Hct (39.0-53.0) % Plt Count (150-450) k/uL Lymphocytes # (1.0-4.8) k/uL Potassium 3.1 L (3.5-5.1) mmol/L BUN 95 H (9-20) mg/dL Creatinine 2.51 H (0.66-1.25) mg/dL Glucose 26 L* (74-99) mg/dL POC Glucose (mg/dL) 41 L 53 L (70-110) mg/dL Calcium 8.2 L (8.4-10.2) mg/dL Magnesium 1.4 L (1.6-2.3) mg/dL AST 83 H (17-59) U/L ALT 102 H (4-49) U/L Urine Protein (Negative) Urine Blood (Negative) Urine Bacteria (None) /hpf Urine Mucus (None) /hpf 11/13/22 11/13/22 11/13/22 Range/Units 06:45 08:01 08:21 RBC (4.30-5.90) m/uL Hct (39.0-53.0) % Plt Count (150-450) k/uL Lymphocytes # (1.0-4.8) k/uL Potassium (3.5-5.1) mmol/L BUN (9-20) mg/dL Creatinine (0.66-1.25) mg/dL Glucose (74-99) mg/dL POC Glucose (mg/dL) 44 L 47 L 218 H (70-110) mg/dL Calcium (8.4-10.2) mg/dL Magnesium (1.6-2.3) mg/dL AST (17-59) U/L ALT (4-49) U/L Urine Protein (Negative) Urine Blood (Negative) Urine Bacteria (None) /hpf Urine Mucus (None) /hpf 11/13/22 11/13/22 11/13/22 Range/Units 08:47 09:52 11:26 RBC (4.30-5.90) m/uL Hct (39.0-53.0) % Plt Count (150-450) k/uL Lymphocytes # (1.0-4.8) k/uL Potassium (3.5-5.1) mmol/L BUN (9-20) mg/dL Creatinine (0.66-1.25) mg/dL Glucose (74-99) mg/dL POC Glucose (mg/dL) 123 H 67 L 63 L (70-110) mg/dL Calcium (8.4-10.2) mg/dL Magnesium (1.6-2.3) mg/dL AST (17-59) U/L ALT (4-49) U/L Urine Protein (Negative) Urine Blood (Negative) Urine Bacteria (None) /hpf Urine Mucus (None) /hpf 11/13/22 11/13/22 11/13/22 Range/Units 11:51 12:54 13:31 RBC (4.30-5.90) m/uL Hct (39.0-53.0) % Plt Count (150-450) k/uL Lymphocytes # (1.0-4.8) k/uL Potassium (3.5-5.1) mmol/L BUN (9-20) mg/dL Creatinine (0.66-1.25) mg/dL Glucose (74-99) mg/dL POC Glucose (mg/dL) 149 H 48 L 145 H (70-110) mg/dL Calcium (8.4-10.2) mg/dL Magnesium (1.6-2.3) mg/dL AST (17-59) U/L ALT (4-49) U/L Urine Protein (Negative) Urine Blood (Negative) Urine Bacteria (None) /hpf Urine Mucus (None) /hpf 11/13/22 Range/Units 14:45 RBC (4.30-5.90) m/uL Hct (39.0-53.0) % Plt Count (150-450) k/uL Lymphocytes # (1.0-4.8) k/uL Potassium (3.5-5.1) mmol/L BUN (9-20) mg/dL Creatinine (0.66-1.25) mg/dL Glucose (74-99) mg/dL POC Glucose (mg/dL) 58 L (70-110) mg/dL Calcium (8.4-10.2) mg/dL Magnesium (1.6-2.3) mg/dL AST (17-59) U/L ALT (4-49) U/L Urine Protein (Negative) Urine Blood (Negative) Urine Bacteria (None) /hpf Urine Mucus (None) /hpf Assessment and Plan Plan: Hypoglycemia secondary to glimipiride Change D5 to D10 drip. Continue blood sugar checks every 30 minutes to 1 hour. Encourage oral intake. Hold oral hypoglycemics. Hypokalemia Hypomagnesemia Replace and follow in a.m. EFRAÍN Seen by nephrology Renal ultrasound Hold losartan and HCTZ IV fluids Check renal function in a.m. Chronic Hyperlipidemia, Hypertension, Osteoarthritis (OA) All stable Resume meds Admit to inpatient, expected length of stay > 2 midnights
[2022-11-13 15:46] LABS: Glucose,Whole Blood 80 mg/dL (70-110)
[2022-11-13 16:29] LABS: Glucose,Whole Blood 213 mg/dL (70-110)
[2022-11-13 16:55] LABS: Glucose,Whole Blood 89 mg/dL (70-110)
[2022-11-13 18:20] LABS: Glucose,Whole Blood 207 mg/dL (70-110)
[2022-11-13 19:11] LABS: Glucose,Whole Blood 73 mg/dL (70-110)
[2022-11-13 21:08] LABS: Glucose,Whole Blood 82 mg/dL (70-110)
[2022-11-13 23:46] LABS: Glucose,Whole Blood 80 mg/dL (70-110)
[2022-11-14] MEDS: DEXTROSE 10% IN WATER 1,000 ML in EMPTY BAG 1 BAG IV SCH (01:17)
[2022-11-14 02:12] LABS: Glucose,Whole Blood 104 mg/dL (70-110)
[2022-11-14 03:55] LABS: Glucose,Whole Blood 98 mg/dL (70-110)
[2022-11-14 06:04] LABS: Glucose,Whole Blood 73 mg/dL (70-110)
[2022-11-14 06:42] LABS: Calcium 7.6 mg/dL (8.4-10.2); Magnesium 1.5 mg/dL (1.6-2.3)
[2022-11-14 06:51] LABS: Potassium 2.7 mmol/L (3.5-5.1)
[2022-11-14] MEDS ORDERED: MAGNESIUM SULFATE-D5W PMX 1 GM in DEXTROSE/WATER 1 100ML.BAG IVPB ONE ×2 (07:30→13:12)
[2022-11-14] MEDS: POTASSIUM CHLORIDE ER 20 MEQ TAB.ER PO SCH ×4 (07:43→11:11)
[2022-11-14] MEDS: DEXTROSE 5%-0.9% NACL 1,000 ML IV SCH ×2 (07:43→13:30)
[2022-11-14] MEDS: CHOLECALCIFEROL 25 MCG (1000 IU) TABLET PO SCH (08:38)
[2022-11-14] MEDS: ASPIRIN 81 MG PO SCH (08:38)
[2022-11-14] MEDS: CITALOPRAM HYDROBROMIDE 20 MG TAB PO SCH (08:38)
[2022-11-14] MEDS: ATORVASTATIN 80 MG TAB PO SCH (08:38)
[2022-11-14] MEDS ORDERED: LOSARTAN-HCTZ 50-12.5 MG 1 EACH TAB PO SCH (09:00)
[2022-11-14 10:30] LABS: Glucose,Whole Blood 203 mg/dL (70-110)
[2022-11-14] MEDS: NON FORMULARY DRUG (Mirabegron [Myrbetriq] 50 MG Tab.Er.24h) PO SCH (10:48)
[2022-11-14 12:19] LABS: Glucose,Whole Blood 153 mg/dL (70-110)
--- NOTE | 2022-11-14 12:34 | P.PN ---
Subjective Progress Note Date: 11/14/22 Principal diagnosis: hypoglycemia Patient just wants to sleep, he does not want to wake up to eat his meals. He states he is tired. No pain, no sob. No fevers. Objective - Vital Signs Vital signs: Vital Signs Temp 99.7 F H 11/13/22 21:57 Pulse 78 11/14/22 06:49 Resp 16 11/14/22 06:49 BP 153/75 11/14/22 06:49 Pulse Ox 94 L 11/14/22 06:49 FiO2 - Exam Constitutional: No acute distress, conversant, pleasant Eyes:Anicteric sclerae, moist conjunctiva, no lid-lag, PERRLA, ENMT: Oropharynx clear, no erythema, exudates Neck: Supple, FROM, no masses, or JVD, No carotid bruits, No thyromegaly Lungs: Clear to auscultation, Clear to percussion, Normal respiratory effort, no accessory muscle use Cardiovascular: Heart regular in rate and rhythm, No murmurs, gallops, or rubs, No peripheral edema Abdominal: Soft, Nontender, no guarding, rebound or rigidity, Normoactive bowel sounds, No hepatomegaly, No splenomegaly, No palpable mass Skin: Normal temperature, tone, texture, turgor, no induration, No subcutaneous nodules, No rash, lesions, No ulcers Extremities: No digital cyanosis, No clubbing, Pedal pulses intact and symmetrical, Radial pulses intact and symmetrical, No calf tenderness Psychiatric: Alert and oriented to person, place and time, appropriate affect, intact judgement Neuro: Muscles Strength 5/5 in all 4 extremities, Sensation to light touch grossly present throughout, Cranial nerves II-XII grossly intact, no focal sensory deficits - Labs CBC & Chem 7: 11/13/22 03:27 11/14/22 05:53 Labs: Abnormal Lab Results - Last 24 Hours (Table) 11/13/22 11/13/22 11/13/22 Range/Units 12:54 13:31 14:45 Potassium (3.5-5.1) mmol/L Chloride (98-107) mmol/L Carbon Dioxide (22-30) mmol/L BUN (9-20) mg/dL Creatinine (0.66-1.25) mg/dL Glucose (74-99) mg/dL POC Glucose (mg/dL) 48 L 145 H 58 L (70-110) mg/dL Calcium (8.4-10.2) mg/dL Magnesium (1.6-2.3) mg/dL 11/13/22 11/13/22 11/14/22 Range/Units 16:26 18:05 05:53 Potassium 2.7 L* (3.5-5.1) mmol/L Chloride 111 H (98-107) mmol/L Carbon Dioxide 19 L (22-30) mmol/L BUN 83 H (9-20) mg/dL Creatinine 2.35 H (0.66-1.25) mg/dL Glucose 102 H (74-99) mg/dL POC Glucose (mg/dL) 213 H 207 H (70-110) mg/dL Calcium 7.6 L (8.4-10.2) mg/dL Magnesium 1.5 L (1.6-2.3) mg/dL 11/14/22 11/14/22 Range/Units 10:17 12:17 Potassium (3.5-5.1) mmol/L Chloride (98-107) mmol/L Carbon Dioxide (22-30) mmol/L BUN (9-20) mg/dL Creatinine (0.66-1.25) mg/dL Glucose (74-99) mg/dL POC Glucose (mg/dL) 203 H 153 H (70-110) mg/dL Calcium (8.4-10.2) mg/dL Magnesium (1.6-2.3) mg/dL Assessment and Plan Plan: Hypoglycemia secondary to glimipiride Continue D5. Continue blood sugar checks every 1 hour. Encourage oral intake. Hold oral hypoglycemics. Hypokalemia Hypomagnesemia Replace and follow in a.m. EFRAÍN Seen by nephrology Renal ultrasound unremarkable Hold losartan and HCTZ IV fluids Check renal function in a.m. Chronic Hyperlipidemia, Hypertension, Osteoarthritis (OA) All stable Resume meds
[2022-11-14] MEDS: SODIUM CHLORIDE 0.9% 1,000 ML IV SCH (13:28)
--- NOTE | 2022-11-14 14:57 | P.PN ---
Subjective Patient is seen in follow-up for acute kidney injury on chronic kidney disease. Renal function is better. Receiving IV fluids. Oral intake fair. Blood sugar near 150 this morning. Vital signs are stable. General: Awake. No acute distress. HEENT: Head exam is unremarkable. LUNGS: Breath sounds decreased. HEART: Rate and Rhythm are regular. ABDOMEN: Soft, no tenderness. EXTREMITITES: No edema. Objective - Vital Signs Vital signs: Vital Signs Temp 99.7 F H 11/13/22 21:57 Pulse 78 11/14/22 06:49 Resp 16 11/14/22 06:49 BP 153/75 11/14/22 06:49 Pulse Ox 94 L 11/14/22 06:49 FiO2 - Labs CBC & Chem 7: 11/13/22 03:27 11/14/22 05:53 Labs: Abnormal Lab Results - Last 24 Hours (Table) 11/13/22 11/13/22 11/14/22 Range/Units 16:26 18:05 05:53 Potassium 2.7 L* (3.5-5.1) mmol/L Chloride 111 H (98-107) mmol/L Carbon Dioxide 19 L (22-30) mmol/L BUN 83 H (9-20) mg/dL Creatinine 2.35 H (0.66-1.25) mg/dL Glucose 102 H (74-99) mg/dL POC Glucose (mg/dL) 213 H 207 H (70-110) mg/dL Calcium 7.6 L (8.4-10.2) mg/dL Magnesium 1.5 L (1.6-2.3) mg/dL 11/14/22 11/14/22 Range/Units 10:17 12:17 Potassium (3.5-5.1) mmol/L Chloride (98-107) mmol/L Carbon Dioxide (22-30) mmol/L BUN (9-20) mg/dL Creatinine (0.66-1.25) mg/dL Glucose (74-99) mg/dL POC Glucose (mg/dL) 203 H 153 H (70-110) mg/dL Calcium (8.4-10.2) mg/dL Magnesium (1.6-2.3) mg/dL Assessment and Plan Plan: Assessment: 1. Acute kidney injury mostly prerenal secondary to poor intake and further worsened with the use of RYAN inhibitor and diuretic. Creatinine 2.51 on admission - 2.35 today. No hydronephrosis noted on kidney ultrasound. 2. Hypokalemia from poor intake and diuretic use. 3. Hypomagnesemia from poor intake and diuretic use. 4. Diabetes with hypoglycemia. 5. Hypertension with chronic kidney disease. Stable. 6. 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 Serologies in the past have been negative except for positive MAYELIN. Plan: Maintain IV fluids. Replace potassium and magnesium. Hold RYAN inhibitor and diuretics. Avoid nephrotoxins. Continue to monitor renal function and urine output.
[2022-11-14 17:08] LABS: Glucose,Whole Blood 178 mg/dL (70-110)
[2022-11-14 21:05] LABS: Glucose,Whole Blood 204 mg/dL (70-110)
[2022-11-15 02:04] LABS: Glucose,Whole Blood 177 mg/dL (70-110)
[2022-11-15] MEDS: SODIUM CHLORIDE 0.9% 1,000 ML IV SCH ×2 (02:16→16:50)
[2022-11-15 07:06] LABS: Glucose,Whole Blood 152 mg/dL (70-110)
[2022-11-15] MEDS: ASPIRIN 81 MG PO SCH (07:59)
[2022-11-15] MEDS: CHOLECALCIFEROL 25 MCG (1000 IU) TABLET PO SCH (07:59)
[2022-11-15] MEDS: CITALOPRAM HYDROBROMIDE 20 MG TAB PO SCH (07:59)
[2022-11-15] MEDS: ATORVASTATIN 80 MG TAB PO SCH (07:59)
[2022-11-15] MEDS: NON FORMULARY DRUG (Mirabegron [Myrbetriq] 50 MG Tab.Er.24h) PO SCH (08:00)
[2022-11-15 08:56] LABS: Basophils # (A) 0.02 X 10*3/uL (0.00-0.10); Basophils % (A) 0.3 %; Eosinophils # (A) 0.22 X 10*3/uL (0.04-0.35); HGB 11.7 g/dL (13.0-17.0); Immature Grans, Automated 0.3 %; Lymphocytes # (A) 0.93 X 10*3/uL (0.90-5.00); Lymphocytes % (A) 12.7 %; MCH 31.3 pg (27.0-32.0); MCHC 33.4 g/dL (32.0-37.0); MCV 93.6 fL (80.0-97.0); Mean Platelet Volume 11.5 fL (9.5-12.2); Monocytes # (A) 1.09 X 10*3/uL (0.20-1.00); Monocytes % (A) 14.9 %; NRBC Per 100 WBC 0 /100 WBCS (0.0-0.0); Neutrophils # (A) 5.03 X 10*3/uL (1.80-7.70); Neutrophils % (A) 68.8 %; Platelet Count 105 X 10*3/uL (140-440); RBC 3.74 X 10*6/uL (4.40-5.60); RDW 12.5 % (11.5-14.5); WBC 7.31 X 10*3/uL (4.50-10.00)
[2022-11-15 10:33] LABS: African American GFR (CKD) 27.8 (60.0-200.0); BUN/Creat Ratio 30.91 Ratio (12.00-20.00); Blood Urea Nitrogen 74.8 mg/dL (9.0-27.0); Calcium 8.2 mg/dL (8.7-10.3); Carbon Dioxide 18.7 mmol/L (20.0-27.5); Magnesium 1.8 mg/dL (1.5-2.4); Phosphorus 3.1 mg/dL (2.4-5.1); Potassium 3.3 mmol/L (3.5-5.5)
[2022-11-15] MEDS ORDERED: Potassium Replacement Protocol 1 EACH MISC MISCELLANE PRN (11:02)
[2022-11-15 11:06] LABS: Glucose,Whole Blood 194 mg/dL (70-110)
[2022-11-15] MEDS: POTASSIUM CHLORIDE ER 20 MEQ TAB.ER PO SCH ×2 (12:11→16:49)
--- NOTE | 2022-11-15 12:39 | P.PN ---
Subjective Patient is seen in follow-up for acute kidney injury on chronic kidney disease. Renal function stable. Receiving IV fluids. Blood sugar stable per nurse. Has been eating. Vital signs are stable. General: Awake. No acute distress. HEENT: Head exam is unremarkable. LUNGS: Breath sounds decreased. HEART: Rate and Rhythm are regular. ABDOMEN: Soft, no tenderness. EXTREMITITES: No edema. Objective - Vital Signs Vital signs: Vital Signs Temp 98.6 F 11/15/22 07:00 Pulse 57 L 11/15/22 07:00 Resp 18 11/15/22 07:00 BP 164/68 11/15/22 07:00 Pulse Ox 95 11/15/22 07:00 FiO2 Intake & Output 11/14/22 11/15/22 11/15/22 18:59 06:59 18:59 Output Total 525 Balance -525 Weight 86.183 kg Output: Urine 525 Other: Voiding Method Urinal Urinal # Voids 1 2 1 - Labs CBC & Chem 7: 11/15/22 06:22 11/15/22 06:22 Labs: Abnormal Lab Results - Last 24 Hours (Table) 11/14/22 11/14/22 11/15/22 Range/Units 17:06 21:04 02:02 RBC (4.40-5.60) X 10*6/uL Hgb (13.0-17.0) g/dL Hct (39.6-50.0) % Plt Count (140-440) X 10*3/uL Monocytes # (0.20-1.00) X 10*3/uL Potassium (3.5-5.5) mmol/L Chloride (96-109) mmol/L Carbon Dioxide (20.0-27.5) mmol/L BUN (9.0-27.0) mg/dL Creatinine (0.6-1.5) mg/dL Est GFR (CKD-EPI)AfAm (60.0-200.0) Est GFR (CKD-EPI)NonAf (60.0-200.0) BUN/Creatinine Ratio (12.00-20.00) Ratio Glucose (70-110) mg/dL POC Glucose (mg/dL) 178 H 204 H 177 H (70-110) mg/dL Calcium (8.7-10.3) mg/dL 11/15/22 11/15/2222 Range/Units 06:22 06:22 07:05 RBC 3.74 L (4.40-5.60) X 10*6/uL Hgb 11.7 L (13.0-17.0) g/dL Hct 35.0 L (39.6-50.0) % Plt Count 105 L (140-440) X 10*3/uL Monocytes # 1.09 H (0.20-1.00) X 10*3/uL Potassium 3.3 L (3.5-5.5) mmol/L Chloride 111 H (96-109) mmol/L Carbon Dioxide 18.7 L (20.0-27.5) mmol/L BUN 74.8 H (9.0-27.0) mg/dL Creatinine 2.4 H (0.6-1.5) mg/dL Est GFR (CKD-EPI)AfAm 27.8 L (60.0-200.0) Est GFR (CKD-EPI)NonAf 24.0 L (60.0-200.0) BUN/Creatinine Ratio 30.91 H (12.00-20.00) Ratio Glucose 162 H (70-110) mg/dL POC Glucose (mg/dL) 152 H (70-110) mg/dL Calcium 8.2 L (8.7-10.3) mg/dL 11/15/22 Range/Units 11:03 RBC (4.40-5.60) X 10*6/uL Hgb (13.0-17.0) g/dL Hct (39.6-50.0) % Plt Count (140-440) X 10*3/uL Monocytes # (0.20-1.00) X 10*3/uL Potassium (3.5-5.5) mmol/L Chloride (96-109) mmol/L Carbon Dioxide (20.0-27.5) mmol/L BUN (9.0-27.0) mg/dL Creatinine (0.6-1.5) mg/dL Est GFR (CKD-EPI)AfAm (60.0-200.0) Est GFR (CKD-EPI)NonAf (60.0-200.0) BUN/Creatinine Ratio (12.00-20.00) Ratio Glucose (70-110) mg/dL POC Glucose (mg/dL) 194 H (70-110) mg/dL Calcium (8.7-10.3) mg/dL Assessment and Plan Plan: Assessment: 1. Acute kidney injury mostly prerenal secondary to poor intake and further worsened with the use of RYAN inhibitor and diuretic. Creatinine 2.51 on admission - 2.4 today. No hydronephrosis noted on kidney ultrasound. 2. Hypokalemia from poor intake and diuretic use. Being replaced. 3. Hypomagnesemia from poor intake and diuretic use. Replaced. Better. 4. Diabetes with hypoglycemia. 5. Hypertension with chronic kidney disease. 6. 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 Serologies in the past have been negative except for positive MAYELIN. Plan: Maintain IV fluids. Potassium being replaced. Hold RYAN inhibitor and diuretics. Avoid nephrotoxins. Continue to monitor renal function and urine output. Add amlodipine 5 mg once daily. Add when necessary hydralazine as well.
[2022-11-15] MEDS: amLODIPine 5 MG TAB PO SCH (14:42)
--- NOTE | 2022-11-15 14:45 | P.PN ---
Subjective Progress Note Date: 11/15/22 Principal diagnosis: hypoglycemia Patient states that he feels generally weak, no pain or shortness of breath. No overnight event. He states that he is eating his meals. Objective - Vital Signs Vital signs: Vital Signs Temp 97.9 F 11/15/22 12: Pulse 53 L 11/15/22 12:22 Resp 18 11/15/22 12:22 BP 172/66 11/15/22 12:22 Pulse Ox 93 L 11/15/22 12:22 FiO2 Intake & Output 11/14/22 11/15/22 11/15/22 18:59 06:59 18:59 Output Total 525 Balance -525 Weight 86.183 kg Output: Urine 525 Other: Voiding Method Urinal Urinal # Voids 1 2 1 - Exam Constitutional: No acute distress, conversant, pleasant Eyes:Anicteric sclerae, moist conjunctiva, no lid-lag, PERRLA, ENMT: Oropharynx clear, no erythema, exudates Neck: Supple, FROM, no masses, or JVD, No carotid bruits, No thyromegaly Lungs: Clear to auscultation, Clear to percussion, Normal respiratory effort, no accessory muscle use Cardiovascular: Heart regular in rate and rhythm, No murmurs, gallops, or rubs, No peripheral edema Abdominal: Soft, Nontender, no guarding, rebound or rigidity, Normoactive bowel sounds, No hepatomegaly, No splenomegaly, No palpable mass Skin: Normal temperature, tone, texture, turgor, no induration, No subcutaneous nodules, No rash, lesions, No ulcers Extremities: No digital cyanosis, No clubbing, Pedal pulses intact and symmetrical, Radial pulses intact and symmetrical, No calf tenderness Psychiatric: Alert and oriented to person, place and time, appropriate affect, intact judgement Neuro: Muscles Strength 5/5 in all 4 extremities, Sensation to light touch grossly present throughout, Cranial nerves II-XII grossly intact, no focal sensory deficits - Labs CBC & Chem 7: 11/15/22 06:22 11/15/22 06:22 Labs: Abnormal Lab Results - Last 24 Hours (Table) 11/14/22 11/14/22 11/15/22 Range/Units 17:06 21:04 02:02 RBC (4.40-5.60) X 10*6/uL Hgb (13.0-17.0) g/dL Hct (39.6-50.0) % Plt Count (140-440) X 10*3/uL Monocytes # (0.20-1.00) X 10*3/uL Potassium (3.5-5.5) mmol/L Chloride (96-109) mmol/L Carbon Dioxide (20.0-27.5) mmol/L BUN (9.0-27.0) mg/dL Creatinine (0.6-1.5) mg/dL Est GFR (CKD-EPI)AfAm (60.0-200.0) Est GFR (CKD-EPI)NonAf (60.0-200.0) BUN/Creatinine Ratio (12.00-20.00) Ratio Glucose (70-110) mg/dL POC Glucose (mg/dL) 178 H 204 H 177 H (70-110) mg/dL Calcium (8.7-10.3) mg/dL 11/15/22 11/15/22 11/15/22 Range/Units 06:22 06:22 07:05 RBC 3.74 L (4.40-5.60) X 10*6/uL Hgb 11.7 L (13.0-17.0) g/dL Hct 35.0 L (39.6-50.0) % Plt Count 105 L (140-440) X 10*3/uL Monocytes # 1.09 H (0.20-1.00) X 10*3/uL Potassium 3.3 L (3.5-5.5) mmol/L Chloride 111 H (96-109) mmol/L Carbon Dioxide 18.7 L (20.0-27.5) mmol/L BUN 74.8 H (9.0-27.0) mg/dL Creatinine 2.4 H (0.6-1.5) mg/dL Est GFR (CKD-EPI)AfAm 27.8 L (60.0-200.0) Est GFR (CKD-EPI)NonAf 24.0 L (60.0-200.0) BUN/Creatinine Ratio 30.91 H (12.00-20.00) Ratio Glucose 162 H (70-110) mg/dL POC Glucose (mg/dL) 152 H (70-110) mg/dL Calcium 8.2 L (8.7-10.3) mg/dL 11/15/22 Range/Units 11:03 RBC (4.40-5.60) X 10*6/uL Hgb (13.0-17.0) g/dL Hct (39.6-50.0) % Plt Count (140-440) X 10*3/uL Monocytes # (0.20-1.00) X 10*3/uL Potassium (3.5-5.5) mmol/L Chloride (96-109) mmol/L Carbon Dioxide (20.0-27.5) mmol/L BUN (9.0-27.0) mg/dL Creatinine (0.6-1.5) mg/dL Est GFR (CKD-EPI)AfAm (60.0-200.0) Est GFR (CKD-EPI)NonAf (60.0-200.0) BUN/Creatinine Ratio (12.00-20.00) Ratio Glucose (70-110) mg/dL POC Glucose (mg/dL) 194 H (70-110) mg/dL Calcium (8.7-10.3) mg/dL Assessment and Plan Plan: Hypoglycemia secondary to glimipiride Resolved. Continue blood sugar checks every AC and HS. Encourage oral intake. Hold oral hypoglycemics. Hypokalemia Hypomagnesemia Replace and follow in a.m. EFRAÍN Seen by nephrology Renal function stabilized with cr at 2.4. Renal ultrasound unremarkable Hold losartan and HCTZ IV fluids Check renal function in a.m. Chronic Hyperlipidemia, Hypertension, Osteoarthritis (OA) All stable Resume meds Gen weakness: PT and OT DVT prophylaxis Heparin s.q
[2022-11-15] MEDS: HEPARIN SODIUM,PORCINE/PF 5,000 UNIT/0.5 ML SYRINGE SQ SCH ×2 (16:49→23:43)
[2022-11-15 17:08] LABS: Glucose,Whole Blood 203 mg/dL (70-110)
[2022-11-15] MEDS: INSULIN ASPART (NovoLOG) 100 UNIT/ML VIAL SQ SCH ×2 (17:52→22:09)
[2022-11-15 20:31] LABS: Glucose,Whole Blood 120 mg/dL (70-110)
[2022-11-16] MEDS ORDERED: POTASSIUM CHLORIDE ER 20 MEQ TAB.ER PO SCH (02:00)
[2022-11-16 02:08] LABS: Glucose,Whole Blood 149 mg/dL (70-110)
[2022-11-16] MEDS: SODIUM CHLORIDE 0.9% 1,000 ML IV SCH ×2 (06:35→15:21)
[2022-11-16 07:13] LABS: Glucose,Whole Blood 134 mg/dL (70-110)
[2022-11-16 08:09] LABS: African American GFR (CKD) 31 (>60 ml/min/1.73 sqM); Anion Gap 7 mmol/L; Blood Urea Nitrogen 74 mg/dL (9-20); Calcium 7.8 mg/dL (8.4-10.2); Carbon Dioxide 18 mmol/L (22-30); Chloride 118 mmol/L (98-107); Glucose 131 mg/dL (74-99); Magnesium 1.4 mg/dL (1.6-2.3); Non-African American GFR(CKD) 27 (>60 ml/min/1.73 sqM); Potassium 3.6 mmol/L (3.5-5.1); Sodium 143 mmol/L (137-145)
[2022-11-16] MEDS: HEPARIN SODIUM,PORCINE/PF 5,000 UNIT/0.5 ML SYRINGE SQ SCH ×3 (09:42→21:22)
[2022-11-16] MEDS: CHOLECALCIFEROL 25 MCG (1000 IU) TABLET PO SCH (09:43)
[2022-11-16] MEDS: amLODIPine 5 MG TAB PO SCH ×3 (09:43→21:58)
[2022-11-16] MEDS: CITALOPRAM HYDROBROMIDE 20 MG TAB PO SCH (09:43)
[2022-11-16] MEDS: ATORVASTATIN 80 MG TAB PO SCH (09:43)
[2022-11-16] MEDS: ASPIRIN 81 MG PO SCH (09:43)
[2022-11-16] MEDS: NON FORMULARY DRUG (Mirabegron [Myrbetriq] 50 MG Tab.Er.24h) PO SCH (09:44)
[2022-11-16] MEDS: INSULIN ASPART (NovoLOG) 100 UNIT/ML VIAL SQ SCH ×4 (09:45→21:03)
[2022-11-16] MEDS: MAGNESIUM SULFATE-D5W PMX 1 GM in DEXTROSE/WATER 1 100ML.BAG IVPB SCH ×2 (10:41→11:53)
[2022-11-16 11:11] LABS: Glucose,Whole Blood 146 mg/dL (70-110)
--- NOTE | 2022-11-16 12:00 | P.PN ---
Subjective Patient is seen in follow-up for acute kidney injury on chronic kidney disease. Renal function stable. Receiving IV fluids. Has been eating. Serum creatinine at 2.2, down from 2.5 on initial admission. Previous creatinine 1.4 on 06/11/2022 Urine output at 1.1 L for 24 hours Objective - Vital Signs Vital signs: Vital Signs Temp 97.5 F L 11/16/22 07:14 Pulse 78 11/16/22 07:14 Resp 18 11/16/22 07:14 BP 167/81 11/16/22 07:14 Pulse Ox 96 11/16/22 07:14 FiO2 Intake & Output 11/15/22 11/16/22 11/16/22 18:59 06:59 18:59 Intake Total 180 Output Total 800 350 Balance -800 -170 Intake: Oral 180 Output: Urine 800 350 Other: Voiding Method Urinal # Voids 1 2 # Bowel Movements 1 - Exam Awake, comfortable, no acute distress Examination of the heart S1 and S2 Examination of lungs decreased breath sounds at the bases Abdomen is soft nontender Examination of lower extremities shows no significant edema - Labs CBC & Chem 7: 11/15/22 06:22 11/16/22 07:32 Labs: Abnormal Lab Results - Last 24 Hours (Table) 11/15/22 11/15/22 11/15/22 Range/Units 15:25 17:06 20:29 Potassium 3.4 L (3.5-5.1) mmol/L Chloride (98-107) mmol/L Carbon Dioxide (22-30) mmol/L BUN (9-20) mg/dL Creatinine (0.66-1.25) mg/dL Glucose (74-99) mg/dL POC Glucose (mg/dL) 203 H 120 H (70-110) mg/dL Calcium (8.4-10.2) mg/dL Magnesium (1.6-2.3) mg/dL 11/16/22 11/16/22 11/16/22 Range/Units 02:05 07:12 07:32 Potassium (3.5-5.1) mmol/L Chloride 118 H (98-107) mmol/L Carbon Dioxide 18 L (22-30) mmol/L BUN 74 H (9-20) mg/dL Creatinine 2.23 H (0.66-1.25) mg/dL Glucose 131 H (74-99) mg/dL POC Glucose (mg/dL) 149 H 134 H (70-110) mg/dL Calcium 7.8 L (8.4-10.2) mg/dL Magnesium 1.4 L (1.6-2.3) mg/dL 11/16/22 Range/Units 11:09 Potassium (3.5-5.1) mmol/L Chloride (98-107) mmol/L Carbon Dioxide (22-30) mmol/L BUN (9-20) mg/dL Creatinine (0.66-1.25) mg/dL Glucose (74-99) mg/dL POC Glucose (mg/dL) 146 H (70-110) mg/dL Calcium (8.4-10.2) mg/dL Magnesium (1.6-2.3) mg/dL Assessment and Plan Assessment: 1. Acute kidney injury mostly prerenal secondary to poor intake and further worsened with the use of RYAN inhibitor and diuretic. Creatinine 2.51 on admission - 2.4 today. No hydronephrosis noted on kidney ultrasound. 2. Hypokalemia from poor intake and diuretic use. Being replaced. 3. Hypomagnesemia from poor intake and diuretic use. Replaced. Better. 4. Diabetes with hypoglycemia. 5. Hypertension with chronic kidney disease. 6. 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 Serologies in the past have been negative except for positive MAYELIN. Plan: Continue with IV fluids Increase Norvasc to twice a day
--- NOTE | 2022-11-16 15:58 | P.PN ---
Subjective Progress Note Date: 11/16/22 Principal diagnosis: hypoglycemia Patient is very weak, requiring up to 3 people assist for ambulation. Denied fevers or chills. No pain. No overnight events. He is eating appropriately according to the nursing staff. Objective - Vital Signs Vital signs: Vital Signs Temp 98.4 F 11/16/22 13:05 Pulse 80 11/16/22 13:05 Resp 16 11/16/22 13:05 BP 172/77 11/16/22 13:05 Pulse Ox 97 11/16/22 13:05 FiO2 Intake & Output 11/15/22 11/16/22 11/16/22 18:59 06:59 18:59 Intake Total 180 Output Total 800 350 Balance -800 -170 Intake: Oral 180 Output: Urine 800 350 Other: Voiding Method Urinal # Voids 1 2 # Bowel Movements 1 - Exam Constitutional: No acute distress, conversant, pleasant Eyes:Anicteric sclerae, moist conjunctiva, no lid-lag, PERRLA, ENMT: Oropharynx clear, no erythema, exudates Neck: Supple, FROM, no masses, or JVD, No carotid bruits, No thyromegaly Lungs: Clear to auscultation, Clear to percussion, Normal respiratory effort, no accessory muscle use Cardiovascular: Heart regular in rate and rhythm, No murmurs, gallops, or rubs, No peripheral edema Abdominal: Soft, Nontender, no guarding, rebound or rigidity, Normoactive bowel sounds, No hepatomegaly, No splenomegaly, No palpable mass Skin: Normal temperature, tone, texture, turgor, no induration, No subcutaneous nodules, No rash, lesions, No ulcers Extremities: No digital cyanosis, No clubbing, Pedal pulses intact and symmetrical, Radial pulses intact and symmetrical, No calf tenderness Psychiatric: Alert and oriented to person, place and time, appropriate affect, intact judgement Neuro: Muscles Strength 5/5 in all 4 extremities, Sensation to light touch grossly present throughout, Cranial nerves II-XII grossly intact, no focal sensory deficits - Labs CBC & Chem 7: 11/15/22 06:22 11/16/22 07:32 Labs: Abnormal Lab Results - Last 24 Hours (Table) 11/15/22 11/15/22 11/16/22 Range/Units 17:06 20:29 02:05 Chloride (98-107) mmol/L Carbon Dioxide (22-30) mmol/L BUN (9-20) mg/dL Creatinine (0.66-1.25) mg/dL Glucose (74-99) mg/dL POC Glucose (mg/dL) 203 H 120 H 149 H (70-110) mg/dL Calcium (8.4-10.2) mg/dL Magnesium (1.6-2.3) mg/dL 11/16/22 11/16/22 11/16/22 Range/Units 07:12 07:32 11:09 Chloride 118 H (98-107) mmol/L Carbon Dioxide 18 L (22-30) mmol/L BUN 74 H (9-20) mg/dL Creatinine 2.23 H (0.66-1.25) mg/dL Glucose 131 H (74-99) mg/dL POC Glucose (mg/dL) 134 H 146 H (70-110) mg/dL Calcium 7.8 L (8.4-10.2) mg/dL Magnesium 1.4 L (1.6-2.3) mg/dL Assessment and Plan Plan: Hypoglycemia secondary to glimipiride Resolved. Continue blood sugar checks every AC and HS. Encourage oral intake. Hold oral hypoglycemics. Hypokalemia Hypomagnesemia Replace and follow in a.m. EFRAÍN Seen by nephrology Renal function stabilized with cr at 2.2. Renal ultrasound unremarkable Hold losartan and HCTZ IV fluids Check renal function in a.m. HTN was on losartan HCTZ, now held due to renal function Started on norvasc. Chronic Hyperlipidemia, Osteoarthritis (OA) All stable Resume meds Gen weakness: Will likely need rehab PT and OT DVT prophylaxis Heparin s.q Dispo: likely to rehab in 1-2 days
[2022-11-16 17:35] LABS: Glucose,Whole Blood 154 mg/dL (70-110)
[2022-11-16 20:15] LABS: Glucose,Whole Blood 148 mg/dL (70-110)
[2022-11-16] MEDS: POTASSIUM CHLORIDE ER 20 MEQ TAB.ER PO SCH ×2 (21:22→21:58)
[2022-11-17] MEDS: hydrALAZINE HCL 20 MG/ML 1 ML VIAL IVP PRN (01:47)
[2022-11-17 02:24] LABS: Glucose,Whole Blood 124 mg/dL (70-110)
[2022-11-17 07:03] LABS: Glucose,Whole Blood 124 mg/dL (70-110)
[2022-11-17] MEDS: INSULIN ASPART (NovoLOG) 100 UNIT/ML VIAL SQ SCH ×4 (07:32→21:01)
[2022-11-17] MEDS: CITALOPRAM HYDROBROMIDE 20 MG TAB PO SCH (09:20)
[2022-11-17] MEDS: NON FORMULARY DRUG (Mirabegron [Myrbetriq] 50 MG Tab.Er.24h) PO SCH (09:21)
[2022-11-17] MEDS: ATORVASTATIN 80 MG TAB PO SCH (09:21)
[2022-11-17] MEDS: ASPIRIN 81 MG PO SCH (09:21)
[2022-11-17] MEDS: amLODIPine 5 MG TAB PO SCH ×2 (09:21→21:01)
[2022-11-17] MEDS: CHOLECALCIFEROL 25 MCG (1000 IU) TABLET PO SCH (09:21)
[2022-11-17] MEDS: HEPARIN SODIUM,PORCINE/PF 5,000 UNIT/0.5 ML SYRINGE SQ SCH ×3 (09:21→21:01)
[2022-11-17 10:34] LABS: African American GFR (CKD) 38 (>60 ml/min/1.73 sqM); Anion Gap 7 mmol/L; Blood Urea Nitrogen 63 mg/dL (9-20); Calcium 7.9 mg/dL (8.4-10.2); Carbon Dioxide 18 mmol/L (22-30); Chloride 118 mmol/L (98-107); Glucose 192 mg/dL (74-99); Non-African American GFR(CKD) 33 (>60 ml/min/1.73 sqM); Potassium 3.9 mmol/L (3.5-5.1); Sodium 143 mmol/L (137-145)
--- NOTE | 2022-11-17 10:51 | P.PN ---
Subjective Progress Note Date: 11/17/22 Principal diagnosis: hypoglycemia Patient is still profoundly weak, requiring 3 people assist to get up. This morning he was seen sitting on the chair. Denied any pain or shortness of breath. No fevers or chills. No overnight event. Objective - Vital Signs Vital signs: Vital Signs Temp 97.4 F L 11/17/22 07:34 Pulse 83 11/17/22 07:34 Resp 16 11/17/22 07:34 BP 147/66 11/17/22 07:34 Pulse Ox 95 11/17/22 07:34 FiO2 Intake & Output 11/16/22 11/17/22 11/17/22 18:59 06:59 18:59 Intake Total 1100 1320 Output Total 200 600 Balance 900 720 Intake: Intake, IV Titration 1100 Amount Magnesium Sulfate-D5w Pmx 200 1 gm In Dextrose/Water 1 100ml.bag @ 100 mls/hr IVPB Q1H JOSSELIN Rx#: [id number] Sodium Chloride 0.9% 1, 900 000 ml @ 75 mls/hr IV . [id number] JOSSELIN Rx#:[id number] Oral 1320 Output: Urine 200 600 Other: Voiding Method Urinal # Voids 1 1 # Bowel Movements 1 1 - Exam Constitutional: No acute distress, conversant, pleasant Eyes:Anicteric sclerae, moist conjunctiva, no lid-lag, PERRLA, ENMT: Oropharynx clear, no erythema, exudates Neck: Supple, FROM, no masses, or JVD, No carotid bruits, No thyromegaly Lungs: Clear to auscultation, Clear to percussion, Normal respiratory effort, no accessory muscle use Cardiovascular: Heart regular in rate and rhythm, No murmurs, gallops, or rubs, No peripheral edema Abdominal: Soft, Nontender, no guarding, rebound or rigidity, Normoactive bowel sounds, No hepatomegaly, No splenomegaly, No palpable mass Skin: Normal temperature, tone, texture, turgor, no induration, No subcutaneous nodules, No rash, lesions, No ulcers Extremities: No digital cyanosis, No clubbing, Pedal pulses intact and symmetrical, Radial pulses intact and symmetrical, No calf tenderness Psychiatric: Alert and oriented to person, place and time, appropriate affect, intact judgement Neuro: Muscles Strength 5/5 in all 4 extremities, Sensation to light touch grossly present throughout, Cranial nerves II-XII grossly intact, no focal sensory deficits - Labs CBC & Chem 7: 11/15/22 06:22 11/17/22 10:04 Labs: Abnormal Lab Results - Last 24 Hours (Table) 11/16/22 11/16/22 11/16/22 Range/Units 11:09 17:21 20:14 Chloride (98-107) mmol/L Carbon Dioxide (22-30) mmol/L BUN (9-20) mg/dL Creatinine (0.66-1.25) mg/dL Glucose (74-99) mg/dL POC Glucose (mg/dL) 146 H 154 H 148 H (70-110) mg/dL Calcium (8.4-10.2) mg/dL 11/17/22 11/17/22 11/17/22 Range/Units 02:22 07:01 10:04 Chloride 118 H (98-107) mmol/L Carbon Dioxide 18 L (22-30) mmol/L BUN 63 H (9-20) mg/dL Creatinine 1.87 H (0.66-1.25) mg/dL Glucose 192 H (74-99) mg/dL POC Glucose (mg/dL) 124 H 124 H (70-110) mg/dL Calcium 7.9 L (8.4-10.2) mg/dL Assessment and Plan Plan: Hypoglycemia secondary to glimipiride Resolved. Continue blood sugar checks every AC and HS. Encourage oral intake. Hold oral hypoglycemics. Hypokalemia Hypomagnesemia Replaced. EFRAÍN Improving with IV fluids, seen by nephrology. Renal ultrasound unremarkable Hold losartan and HCTZ IV fluids Check renal function in a.m. HTN was on losartan HCTZ, now held due to renal function Started on norvasc. Chronic Hyperlipidemia, Osteoarthritis (OA) All stable Resume meds Gen weakness: Will need rehab PT and OT DVT prophylaxis Heparin s.q Dispo: likely to rehab in 1-2 days. D/w case management.
[2022-11-17 11:20] LABS: Glucose,Whole Blood 213 mg/dL (70-110)
[2022-11-17] MEDS: SODIUM CHLORIDE 0.9% 1,000 ML IV SCH ×2 (12:28→21:01)
[2022-11-17 17:12] LABS: Glucose,Whole Blood 107 mg/dL (70-110)
[2022-11-17 20:21] LABS: Glucose,Whole Blood 158 mg/dL (70-110)
[2022-11-18 01:59] LABS: Glucose,Whole Blood 134 mg/dL (70-110)
[2022-11-18] MEDS: hydrALAZINE HCL 20 MG/ML 1 ML VIAL IVP PRN ×2 (02:05→08:24)
[2022-11-18 07:14] LABS: Glucose,Whole Blood 118 mg/dL (70-110)
[2022-11-18] MEDS: INSULIN ASPART (NovoLOG) 100 UNIT/ML VIAL SQ SCH ×4 (07:14→20:37)
[2022-11-18] MEDS: ATORVASTATIN 80 MG TAB PO SCH (08:25)
[2022-11-18] MEDS: HEPARIN SODIUM,PORCINE/PF 5,000 UNIT/0.5 ML SYRINGE SQ SCH ×3 (08:25→20:37)
[2022-11-18] MEDS: amLODIPine 5 MG TAB PO SCH ×2 (08:25→20:37)
[2022-11-18] MEDS: ASPIRIN 81 MG PO SCH (08:25)
[2022-11-18] MEDS: CITALOPRAM HYDROBROMIDE 20 MG TAB PO SCH (08:25)
[2022-11-18] MEDS: CHOLECALCIFEROL 25 MCG (1000 IU) TABLET PO SCH (08:25)
[2022-11-18] MEDS: NON FORMULARY DRUG (Mirabegron [Myrbetriq] 50 MG Tab.Er.24h) PO SCH (08:26)
[2022-11-18 10:27] LABS: African American GFR (CKD) 35.2 (60.0-200.0); Anion Gap 12.3 mmol/L (10.00-18.00); BUN/Creat Ratio 28.29 Ratio (12.00-20.00); Blood Urea Nitrogen 56.3 mg/dL (9.0-27.0); Calcium 8.2 mg/dL (8.7-10.3); Carbon Dioxide 17.4 mmol/L (20.0-27.5); Magnesium 1.4 mg/dL (1.5-2.4); Non-African American GFR(CKD) 30.4 (60.0-200.0); Potassium 3.3 mmol/L (3.5-5.5)
--- NOTE | 2022-11-18 10:46 | P.PN ---
Subjective Patient is seen in follow-up for acute kidney injury on chronic kidney disease. Renal function stable. Receiving IV fluids. Has been eating. Serum creatinine at 2.0, down from 2.5 on initial admission. Previous creatinine 1.4 on 06/11/2022 Urine output at 1.0 L for 24 hours Patient rushing to the bathroom this morning. Being helped by physical therapy. No other significant complaints. Objective - Vital Signs Vital signs: Vital Signs Temp 97.9 F 11/18/22 07:13 Pulse 100 11/18/22 07:13 Resp 20 11/18/22 07:13 BP 164/79 11/18/22 07:13 Pulse Ox 96 11/18/22 07:13 FiO2 Intake & Output 11/17/22 11/18/22 11/18/22 18:59 06:59 18:59 Intake Total 1090 Balance 1090 Intake: Oral 1090 Other: Voiding Method Urinal Urinal Urinal # Voids 1 2 # Bowel Movements 1 1 - Exam Awake, comfortable, no acute distress Alert oriented 3 Examination of lower extremities shows trace edema - Labs CBC & Chem 7: 11/15/22 06:22 11/18/22 06:48 Labs: Abnormal Lab Results - Last 24 Hours (Table) 11/17/22 11/17/22 11/18/22 Range/Units 11:19 20:10 01:48 Potassium (3.5-5.5) mmol/L Chloride (96-109) mmol/L Carbon Dioxide (20.0-27.5) mmol/L BUN (9.0-27.0) mg/dL Creatinine (0.6-1.5) mg/dL Est GFR (CKD-EPI)AfAm (60.0-200.0) Est GFR (CKD-EPI)NonAf (60.0-200.0) BUN/Creatinine Ratio (12.00-20.00) Ratio Glucose (70-110) mg/dL POC Glucose (mg/dL) 213 H 158 H 134 H (70-110) mg/dL Calcium (8.7-10.3) mg/dL Magnesium (1.5-2.4) mg/dL 11/18/22 11/18/22 Range/Units 06:48 07:12 Potassium 3.3 L (3.5-5.5) mmol/L Chloride 113 H (96-109) mmol/L Carbon Dioxide 17.4 L (20.0-27.5) mmol/L BUN 56.3 H (9.0-27.0) mg/dL Creatinine 2.0 H (0.6-1.5) mg/dL Est GFR (CKD-EPI)AfAm 35.2 L (60.0-200.0) Est GFR (CKD-EPI)NonAf 30.4 L (60.0-200.0) BUN/Creatinine Ratio 28.29 H (12.00-20.00) Ratio Glucose 116 H (70-110) mg/dL POC Glucose (mg/dL) 118 H (70-110) mg/dL Calcium 8.2 L (8.7-10.3) mg/dL Magnesium 1.4 L (1.5-2.4) mg/dL Assessment and Plan Assessment: 1. Acute kidney injury mostly prerenal secondary to poor intake and further worsened with the use of RYAN inhibitor and diuretic. Creatinine 2.51 on ad mission - 2.0 today. No hydronephrosis noted on kidney ultrasound. 2. Hypokalemia from poor intake and diuretic use. Being replaced. 3. Hypomagnesemia from poor intake and diuretic use. Replaced. Better. 4. Diabetes with hypoglycemia. 5. Hypertension with chronic kidney disease. 6. 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 Serologies in the past have been negative except for positive MAYELIN. Plan: Decrease IV fluids Increase Norvasc to twice a day Increase metoprolol to twice a day as blood pressure remains elevated
[2022-11-18 11:12] LABS: Glucose,Whole Blood 145 mg/dL (70-110)
[2022-11-18] MEDS: SODIUM CHLORIDE 0.9% 1,000 ML IV SCH (11:14)
[2022-11-18] MEDS: MAGNESIUM SULFATE-D5W PMX 1 GM in DEXTROSE/WATER 1 100ML.BAG IVPB SCH ×4 (14:21→20:36)
[2022-11-18] MEDS: METOPROLOL SUCCINATE (ER) 25 MG TAB.ER.24H PO SCH (14:21)
--- NOTE | 2022-11-18 14:50 | P.PN ---
Subjective Progress Note Date: 11/18/22 Patient seen and examined at chairside. Patient is very hard of hearing. Patient denies chest pain or shortness of breath. Patient is awaiting placement for [facility]. Objective - Vital Signs Vital signs: Vital Signs Temp 97.4 F L 11/18/22 13:06 Pulse 75 11/18/22 13:06 Resp 18 11/18/22 13:06 BP 137/57 11/18/22 13:06 Pulse Ox 96 11/18/22 13:06 FiO2 Intake & Output 11/17/22 11/18/22 11/18/22 18:59 06:59 18:59 Intake Total 1090 Balance 1090 Intake: Oral 1090 Other: Voiding Method Urinal Urinal Urinal # Voids 1 2 # Bowel Movements 1 1 - Exam General: [non toxic], [no distress], [appears at stated age] Derm: [warm], [dry] Head: [atraumatic], [normocephalic], [symmetric] Eyes: [EOMI], [no lid lag], [anicteric sclera] Mouth: [no lip lesion], [mucus membranes moist] Cardiovascular: [S1S2 reg], [no murmur], [positive posterior tibial pulse bilateral], Lungs: [CTA bilateral], [no rhonchi, no rales] , [no accessory muscle use] Abdominal: [soft], [ nontender to palpation], [no guarding], [no appreciable organomegaly] Ext: [no gross muscle atrophy], [no edema], [no contractures] Neuro: [ CN II-XI grossly intact], [no focal neuro deficits] Psych: [Alert] [appropriate affect] - Labs CBC & Chem 7: 11/15/22 06:22 11/18/22 06:48 Labs: Abnormal Lab Results - Last 24 Hours (Table) 11/17/22 11/18/22 11/18/22 Range/Units 20:10 01:48 06:48 Potassium 3.3 L (3.5-5.5) mmol/L Chloride 113 H (96-109) mmol/L Carbon Dioxide 17.4 L (20.0-27.5) mmol/L BUN 56.3 H (9.0-27.0) mg/dL Creatinine 2.0 H (0.6-1.5) mg/dL Est GFR (CKD-EPI)AfAm 35.2 L (60.0-200.0) Est GFR (CKD-EPI)NonAf 30.4 L (60.0-200.0) BUN/Creatinine Ratio 28.29 H (12.00-20.00) Ratio Glucose 116 H (70-110) mg/dL POC Glucose (mg/dL) 158 H 134 H (70-110) mg/dL Calcium 8.2 L (8.7-10.3) mg/dL Magnesium 1.4 L (1.5-2.4) mg/dL 11/18/22 11/18/22 Range/Units 07:12 11:10 Potassium (3.5-5.5) mmol/L Chloride (96-109) mmol/L Carbon Dioxide (20.0-27.5) mmol/L BUN (9.0-27.0) mg/dL Creatinine (0.6-1.5) mg/dL Est GFR (CKD-EPI)AfAm (60.0-200.0) Est GFR (CKD-EPI)NonAf (60.0-200.0) BUN/Creatinine Ratio (12.00-20.00) Ratio Glucose (70-110) mg/dL POC Glucose (mg/dL) 118 H 145 H (70-110) mg/dL Calcium (8.7-10.3) mg/dL Magnesium (1.5-2.4) mg/dL Assessment and Plan Assessment: Hypoglycemia secondary to glimipiride Resolved. Continue blood sugar checks every AC and HS. Encourage oral intake. Hold oral hypoglycemics. Hypokalemia Hypomagnesemia Replaced. EFRAÍN Improving with IV fluids, seen by nephrology. Renal ultrasound unremarkable Hold losartan and HCTZ IV fluids Check renal function in a.m. HTN was on losartan HCTZ, now held due to renal function Started on norvasc. Chronic Hyperlipidemia, Osteoarthritis (OA) All stable Resume meds Gen weakness: Will need rehab PT and OT DVT prophylaxis Heparin s.q Dispo: likely to rehab in 1-2 days. D/w case management. Awaiting [facility]. Time with Patient: Greater than 30
[2022-11-18] MEDS: POTASSIUM CHLORIDE ER 20 MEQ TAB.ER PO SCH ×2 (15:58→17:54)
[2022-11-18 17:10] LABS: Glucose,Whole Blood 197 mg/dL (70-110)
[2022-11-18 20:20] LABS: Glucose,Whole Blood 152 mg/dL (70-110)
[2022-11-19 03:39] LABS: Glucose,Whole Blood 104 mg/dL (70-110)
[2022-11-19] MEDS: SODIUM CHLORIDE 0.9% 1,000 ML IV SCH (05:49)
[2022-11-19 07:38] LABS: Glucose,Whole Blood 104 mg/dL (70-110)
[2022-11-19] MEDS: INSULIN ASPART (NovoLOG) 100 UNIT/ML VIAL SQ SCH ×4 (08:34→21:26)
[2022-11-19] MEDS: METOPROLOL SUCCINATE (ER) 25 MG TAB.ER.24H PO SCH ×2 (08:35→21:20)
[2022-11-19] MEDS: CITALOPRAM HYDROBROMIDE 20 MG TAB PO SCH (08:35)
[2022-11-19] MEDS: CHOLECALCIFEROL 25 MCG (1000 IU) TABLET PO SCH (08:35)
[2022-11-19] MEDS: ASPIRIN 81 MG PO SCH (08:35)
[2022-11-19] MEDS: amLODIPine 5 MG TAB PO SCH ×2 (08:35→21:20)
[2022-11-19] MEDS: ATORVASTATIN 80 MG TAB PO SCH (08:35)
[2022-11-19] MEDS: HEPARIN SODIUM,PORCINE/PF 5,000 UNIT/0.5 ML SYRINGE SQ SCH ×3 (08:35→21:21)
[2022-11-19] MEDS: NON FORMULARY DRUG (Mirabegron [Myrbetriq] 50 MG Tab.Er.24h) PO SCH (08:36)
[2022-11-19 10:23] LABS: Basophils # (A) 0.03 X 10*3/uL (0.00-0.10); Basophils % (A) 0.3 %; Eosinophils # (A) 0.17 X 10*3/uL (0.04-0.35); Eosinophils % (A) 1.6 %; HCT 31.4 % (39.6-50.0); HGB 10.6 g/dL (13.0-17.0); Immature Grans, Automated 0.6 %; Lymphocytes # (A) 1.04 X 10*3/uL (0.90-5.00); Lymphocytes % (A) 9.6 %; MCH 32.3 pg (27.0-32.0); MCHC 33.8 g/dL (32.0-37.0); MCV 95.7 fL (80.0-97.0); Mean Platelet Volume 10.6 fL (9.5-12.2); Monocytes # (A) 0.66 X 10*3/uL (0.20-1.00); Monocytes % (A) 6.1 %; NRBC Per 100 WBC 0 /100 WBCS (0.0-0.0); Neutrophils # (A) 8.82 X 10*3/uL (1.80-7.70); Neutrophils % (A) 81.8 %; Platelet Count 119 X 10*3/uL (140-440); RBC 3.28 X 10*6/uL (4.40-5.60); RDW 12.9 % (11.5-14.5); WBC 10.78 X 10*3/uL (4.50-10.00)
[2022-11-19 11:09] LABS: Albumin 2.7 g/dL (3.8-4.9); Albumin/Globulin Ratio 1.35 (1.60-3.17); BUN/Creat Ratio 25.95 Ratio (12.00-20.00); Blood Urea Nitrogen 51.9 mg/dL (9.0-27.0); Calcium 7.9 mg/dL (8.7-10.3); Magnesium 1.8 mg/dL (1.5-2.4); Non-African American GFR(CKD) 30.2 (60.0-200.0); Potassium 3.3 mmol/L (3.5-5.5); Total Bilirubin 0.4 mg/dL (0.30-1.20); Total Protein 4.7 g/dL (6.2-8.2)
[2022-11-19 12:46] LABS: Glucose,Whole Blood 155 mg/dL (70-110)
--- NOTE | 2022-11-19 12:50 | P.PN ---
Subjective Patient is seen in follow-up for acute kidney injury on chronic kidney disease. Renal function stable. Receiving IV fluids. Has been eating. Serum creatinine at 2.0, down from 2.5 on initial admission. Previous creatinine 1.4 on 06/11/2022 No significant complaints. Objective - Vital Signs Vital signs: Vital Signs Temp 98.5 F 11/19/22 07:35 Pulse 68 11/19/22 07:35 Resp 18 11/19/22 07:35 BP 150/57 11/19/22 07:35 Pulse Ox 95 11/19/22 07:35 FiO2 Intake & Output 11/18/22 11/19/22 11/19/22 18:59 06:59 18:59 Output Total 300 350 Balance -300 -350 Output: Urine 300 350 Other: Voiding Method Urinal Urinal # Voids 2 4 # Bowel Movements 1 1 - Exam Awake, comfortable, no acute distress Alert oriented 3 Examination of the heart S1 and S2 Examination lungs bilateral breath sounds are heard Abdomen is soft nontender Examination of the lower extremities shows 1+ edema bilaterally - Labs CBC & Chem 7: 11/19/22 06:36 11/19/22 06:36 Labs: Abnormal Lab Results - Last 24 Hours (Table) 11/18/22 11/18/22 11/19/22 Range/Units 17:08 20:18 06:36 WBC 10.78 H (4.50-10.00) X 10*3/uL RBC 3.28 L (4.40-5.60) X 10*6/uL Hgb 10.6 L (13.0-17.0) g/dL Hct 31.4 L (39.6-50.0) % MCH 32.3 H (27.0-32.0) pg Plt Count 119 L (140-440) X 10*3/uL Immature Gran # 0.06 H (0.00-0.04) X 10*3/uL Neutrophils # 8.82 H (1.80-7.70) X 10*3/uL Potassium (3.5-5.5) mmol/L Chloride (96-109) mmol/L Carbon Dioxide (20.0-27.5) mmol/L BUN (9.0-27.0) mg/dL Creatinine (0.6-1.5) mg/dL Est GFR (CKD-EPI)AfAm (60.0-200.0) Est GFR (CKD-EPI)NonAf (60.0-200.0) BUN/Creatinine Ratio (12.00-20.00) Ratio POC Glucose (mg/dL) 197 H 152 H (70-110) mg/dL Calcium (8.7-10.3) mg/dL AST (14-35) U/L ALT (10-49) U/L Total Protein (6.2-8.2) g/dL Albumin (3.8-4.9) g/dL Albumin/Globulin Ratio (1.60-3.17) g/dL 11/19/22 11/19/22 Range/Units 06:36 12:45 WBC (4.50-10.00) X 10*3/uL RBC (4.40-5.60) X 10*6/uL Hgb (13.0-17.0) g/dL Hct (39.6-50.0) % MCH (27.0-32.0) pg Plt Count (140-440) X 10*3/uL Immature Gran # (0.00-0.04) X 10*3/uL Neutrophils # (1.80-7.70) X 10*3/uL Potassium 3.3 L (3.5-5.5) mmol/L Chloride 114 H (96-109) mmol/L Carbon Dioxide 17.0 L (20.0-27.5) mmol/L BUN 51.9 H (9.0-27.0) mg/dL Creatinine 2.0 H (0.6-1.5) mg/dL Est GFR (CKD-EPI)AfAm 35.0 L (60.0-200.0) Est GFR (CKD-EPI)NonAf 30.2 L (60.0-200.0) BUN/Creatinine Ratio 25.95 H (12.00-20.00) Ratio POC Glucose (mg/dL) 155 H (70-110) mg/dL Calcium 7.9 L (8.7-10.3) mg/dL AST 146 H (14-35) U/L ALT 191 H (10-49) U/L Total Protein 4.7 L (6.2-8.2) g/dL Albumin 2.7 L (3.8-4.9) g/dL Albumin/Globulin Ratio 1.35 L (1.60-3.17) g/dL Assessment and Plan Assessment: 1. Acute kidney injury mostly prerenal secondary to poor intake and further worsened with the use of RYAN inhibitor and diuretic. Creatinine 2.51 on adm ission - 2.0 today. No hydronephrosis noted on kidney ultrasound. 2. Hypokalemia from poor intake and diuretic use. Being replaced. 3. Hypomagnesemia from poor intake and diuretic use. Replaced. Better. 4. Diabetes with hypoglycemia. 5. Hypertension with chronic kidney disease. 6. 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 Serologies in the past have been negative except for positive MAYELIN. Plan: Discontinue IV fluids Increase Norvasc to twice a day Increase metoprolol to twice a day as blood pressure remains elevated
[2022-11-19 12:56] VITALS: BMI 24.3
[2022-11-19] MEDS: MAGNESIUM SULFATE-D5W PMX 1 GM in DEXTROSE/WATER 1 100ML.BAG IVPB SCH (13:12)
--- NOTE | 2022-11-19 14:46 | P.PN ---
Subjective Progress Note Date: 11/19/22 Patient seen and examined at bedside. Patient denies chest pain shortness of breath nausea vomiting fevers or chills. Objective - Vital Signs Vital signs: Vital Signs Temp 98.5 F 11/19/22 07:35 Pulse 68 11/19/22 07:35 Resp 18 11/19/22 07:35 BP 150/57 11/19/22 07:35 Pulse Ox 95 11/19/22 07:35 FiO2 Intake & Output 11/18/22 11/19/22 11/19/22 18:59 06:59 18:59 Output Total 300 350 Balance -300 -350 Weight 86.183 kg Output: Urine 300 350 Other: Voiding Method Urinal Urinal # Voids 2 4 # Bowel Movements 1 1 - Exam General: [non toxic], [no distress], [appears at stated age] Derm: [warm], [dry] Head: [atraumatic], [normocephalic], [symmetric] Eyes: [EOMI], [no lid lag], [anicteric sclera] Mouth: [no lip lesion], [mucus membranes moist] Cardiovascular: [S1S2 reg], [no murmur], [positive posterior tibial pulse bilateral], Lungs: [CTA bilateral], [no rhonchi, no rales] , [no accessory muscle use] Abdominal: [soft], [ nontender to palpation], [no guarding], [no appreciable organomegaly] Ext: [no gross muscle atrophy], [no edema], [no contractures] Neuro: [ CN II-XI grossly intact], [no focal neuro deficits] Psych: [Alert] [appropriate affect]. - Labs CBC & Chem 7: 11/19/22 06:36 11/19/22 06:36 Labs: Abnormal Lab Results - Last 24 Hours (Table) 11/18/22 11/18/22 11/19/22 Range/Units 17:08 20:18 06:36 WBC 10.78 H (4.50-10.00) X 10*3/uL RBC 3.28 L (4.40-5.60) X 10*6/uL Hgb 10.6 L (13.0-17.0) g/dL Hct 31.4 L (39.6-50.0) % MCH 32.3 H (27.0-32.0) pg Plt Count 119 L (140-440) X 10*3/uL Immature Gran # 0.06 H (0.00-0.04) X 10*3/uL Neutrophils # 8.82 H (1.80-7.70) X 10*3/uL Potassium (3.5-5.5) mmol/L Chloride (96-109) mmol/L Carbon Dioxide (20.0-27.5) mmol/L BUN (9.0-27.0) mg/dL Creatinine (0.6-1.5) mg/dL Est GFR (CKD-EPI)AfAm (60.0-200.0) Est GFR (CKD-EPI)NonAf (60.0-200.0) BUN/Creatinine Ratio (12.00-20.00) Ratio POC Glucose (mg/dL) 197 H 152 H (70-110) mg/dL Calcium (8.7-10.3) mg/dL AST (14-35) U/L ALT (10-49) U/L Total Protein (6.2-8.2) g/dL Albumin (3.8-4.9) g/dL Albumin/Globulin Ratio (1.60-3.17) g/dL 11/19/22 11/19/22 Range/Units 06:36 12:45 WBC (4.50-10.00) X 10*3/uL RBC (4.40-5.60) X 10*6/uL Hgb (13.0-17.0) g/dL Hct (39.6-50.0) % MCH (27.0-32.0) pg Plt Count (140-440) X 10*3/uL Immature Gran # (0.00-0.04) X 10*3/uL Neutrophils # (1.80-7.70) X 10*3/uL Potassium 3.3 L (3.5-5.5) mmol/L Chloride 114 H (96-109) mmol/L Carbon Dioxide 17.0 L (20.0-27.5) mmol/L BUN 51.9 H (9.0-27.0) mg/dL Creatinine 2.0 H (0.6-1.5) mg/dL Est GFR (CKD-EPI)AfAm 35.0 L (60.0-200.0) Est GFR (CKD-EPI)NonAf 30.2 L (60.0-200.0) BUN/Creatinine Ratio 25.95 H (12.00-20.00) Ratio POC Glucose (mg/dL) 155 H (70-110) mg/dL Calcium 7.9 L (8.7-10.3) mg/dL AST 146 H (14-35) U/L ALT 191 H (10-49) U/L Total Protein 4.7 L (6.2-8.2) g/dL Albumin 2.7 L (3.8-4.9) g/dL Albumin/Globulin Ratio 1.35 L (1.60-3.17) g/dL Assessment and Plan Assessment: Hypoglycemia secondary to glimipiride Resolved. Continue blood sugar checks every AC and HS. Encourage oral intake. Hold oral hypoglycemics. Hypokalemia Hypomagnesemia Replaced. EFRAÍN Improving with IV fluids, seen by nephrology. Renal ultrasound unremarkable Hold losartan and HCTZ IV fluids Check renal function in a.m. HTN was on losartan HCTZ, now held due to renal function Started on norvasc. Chronic Hyperlipidemia, Osteoarthritis (OA) All stable Resume meds Gen weakness: Will need rehab PT and OT DVT prophylaxis Heparin s.q Dispo: likely to rehab in 1-2 days. D/w case management. Awaiting rehab placement
--- NOTE | 2022-11-19 16:11 | XR ---
EXAMINATION TYPE: XR chest 2V DATE OF EXAM: 11/19/2022 COMPARISON: None HISTORY: 82-year-old male with cough TECHNIQUE: Frontal and lateral views FINDINGS: The heart is upper limits are normal in size. There is some patchy density at the right base. No othe r consolidation or pleural effusion is seen. IMPRESSION: Mild patchy atelectasis versus infiltrate/developing pneumonia at the right base.
[2022-11-19 17:08] LABS: Glucose,Whole Blood 131 mg/dL (70-110)
[2022-11-19 21:06] LABS: Glucose,Whole Blood 167 mg/dL (70-110)
[2022-11-20 02:00] LABS: Glucose,Whole Blood 101 mg/dL (70-110)
[2022-11-20] MEDS: SODIUM CHLORIDE 0.9% 1,000 ML IV SCH (06:24)
[2022-11-20 07:04] LABS: Basophils % (A) 0 %; Eosinophils # (A) 0.2 k/uL (0-0.7); Eosinophils % (A) 2 %; HCT 32.2 % (39.0-53.0); HGB 10.8 gm/dL (13.0-17.5); Lymphocytes # (A) 0.8 k/uL (1.0-4.8); Lymphocytes % (A) 8 %; MCHC 33.6 g/dL (31.0-37.0); Mean Platelet Volume 8.3; Monocytes # (A) 0.5 k/uL (0-1.0); Monocytes % (A) 5 %; Neutrophils # (A) 8.7 k/uL (1.3-7.7); Neutrophils % (A) 84 %; Platelet Count 109 k/uL (150-450); RBC 3.28 m/uL (4.30-5.90); RDW 12.6 % (11.5-15.5); WBC 10.3 k/uL (3.8-10.6)
[2022-11-20 07:11] LABS: MCV 98.1 fL (80.0-100.0)
[2022-11-20 07:18] LABS: ALT 227 U/L (4-49); AST 149 U/L (17-59); African American GFR (CKD) 46 (>60 ml/min/1.73 sqM); Albumin 2.3 g/dL (3.5-5.0); Albumin/Globulin Ratio 0.9; Alkaline Phosphatase 84 U/L (38-126); Anion Gap 7 mmol/L; Blood Urea Nitrogen 48 mg/dL (9-20); Calcium 7.6 mg/dL (8.4-10.2); Carbon Dioxide 18 mmol/L (22-30); Chloride 116 mmol/L (98-107); Globulin 2.5 g/dL; Glucose 105 mg/dL (74-99); Non-African American GFR(CKD) 39 (>60 ml/min/1.73 sqM); Potassium 3.3 mmol/L (3.5-5.1); Sodium 141 mmol/L (137-145); Total Bilirubin 0.4 mg/dL (0.2-1.3); Total Protein 4.8 g/dL (6.3-8.2)
[2022-11-20 07:21] LABS: Glucose,Whole Blood 108 mg/dL (70-110)
[2022-11-20] MEDS ORDERED: POTASSIUM CHLORIDE ER 20 MEQ TAB.ER PO STA (07:31)
[2022-11-20] MEDS: INSULIN ASPART (NovoLOG) 100 UNIT/ML VIAL SQ SCH ×4 (09:23→20:48)
[2022-11-20] MEDS: NON FORMULARY DRUG (Mirabegron [Myrbetriq] 50 MG Tab.Er.24h) PO SCH (09:39)
[2022-11-20] MEDS: CHOLECALCIFEROL 25 MCG (1000 IU) TABLET PO SCH (09:40)
[2022-11-20] MEDS: CITALOPRAM HYDROBROMIDE 20 MG TAB PO SCH (09:40)
[2022-11-20] MEDS: HEPARIN SODIUM,PORCINE/PF 5,000 UNIT/0.5 ML SYRINGE SQ SCH ×3 (09:40→20:48)
[2022-11-20] MEDS: amLODIPine 5 MG TAB PO SCH ×2 (09:40→20:48)
[2022-11-20] MEDS: METOPROLOL SUCCINATE (ER) 25 MG TAB.ER.24H PO SCH ×2 (09:41→20:48)
[2022-11-20] MEDS: LEVOFLOXACIN 500 MG TAB PO SCH (09:41)
[2022-11-20] MEDS: ATORVASTATIN 80 MG TAB PO SCH (09:41)
[2022-11-20] MEDS: ASPIRIN 81 MG PO SCH (09:41)
[2022-11-20 12:34] LABS: Glucose,Whole Blood 117 mg/dL (70-110)
--- NOTE | 2022-11-20 13:58 | P.PN ---
Subjective Patient seen and examined at bedside. Patient states that cough is persistent denies shortness of breath nausea vomiting fevers or chills. Chest x-ray did show some mild atelectasis versus infiltrate. Patient will be covered with oral antibiotics. Objective - Vital Signs Vital signs: Vital Signs Temp 99.1 F 11/20/22 12:42 Pulse 64 11/20/22 12:42 Resp 18 11/20/22 12:42 BP 163/69 11/20/22 12:42 Pulse Ox 95 11/20/22 12:42 FiO2 Intake & Output 11/19/22 11/20/22 11/20/22 18:59 06:59 18:59 Intake Total 1400 Output Total 1000 1 Balance 1400 -1000 -1 Weight 86.183 kg Intake: Oral 1400 Output: Urine 1000 1 Other: Voiding Method Urinal Urinal # Voids 3 350 # Bowel Movements 1 - Exam General: [non toxic], [no distress], [appears at stated age] Derm: [warm], [dry] Head: [atraumatic], [normocephalic], [symmetric] Eyes: [EOMI], [no lid lag], [anicteric sclera] Mouth: [no lip lesion], [mucus membranes moist] Cardiovascular: [S1S2 reg], [no murmur], [positive posterior tibial pulse bilateral], Lungs: [CTA bilateral], [no rhonchi, no rales] , [no accessory muscle use] Abdominal: [soft], [ nontender to palpation], [no guarding], [no appreciable organomegaly] Ext: [no gross muscle atrophy], [no edema], [no contractures] Neuro: [ CN II-XI grossly intact], [no focal neuro deficits] Psych: [Alert], [oriented], [appropriate affect] - Labs CBC & Chem 7: 11/20/22 06:24 11/20/22 06:24 Labs: Abnormal Lab Results - Last 24 Hours (Table) 11/19/22 11/19/22 11/20/22 Range/Units 16:56 21:04 06:24 RBC 3.28 L (4.30-5.90) m/uL Hgb 10.8 L (13.0-17.5) gm/dL Hct 32.2 L (39.0-53.0) % Plt Count 109 L (150-450) k/uL Neutrophils # 8.7 H (1.3-7.7) k/uL Lymphocytes # 0.8 L (1.0-4.8) k/uL Potassium (3.5-5.1) mmol/L Chloride (98-107) mmol/L Carbon Dioxide (22-30) mmol/L BUN (9-20) mg/dL Creatinine (0.66-1.25) mg/dL Glucose (74-99) mg/dL POC Glucose (mg/dL) 131 H 167 H (70-110) mg/dL Calcium (8.4-10.2) mg/dL AST (17-59) U/L ALT (4-49) U/L Total Protein (6.3-8.2) g/dL Albumin (3.5-5.0) g/dL 11/20/22 11/20/22 Range/Units 06:24 12:33 RBC (4.30-5.90) m/uL Hgb (13.0-17.5) gm/dL Hct (39.0-53.0) % Plt Count (150-450) k/uL Neutrophils # (1.3-7.7) k/uL Lymphocytes # (1.0-4.8) k/uL Potassium 3.3 L (3.5-5.1) mmol/L Chloride 116 H (98-107) mmol/L Carbon Dioxide 18 L (22-30) mmol/L BUN 48 H (9-20) mg/dL Creatinine 1.61 H (0.66-1.25) mg/dL Glucose 105 H (74-99) mg/dL POC Glucose (mg/dL) 117 H (70-110) mg/dL Calcium 7.6 L (8.4-10.2) mg/dL AST 149 H (17-59) U/L ALT 227 H (4-49) U/L Total Protein 4.8 L (6.3-8.2) g/dL Albumin 2.3 L (3.5-5.0) g/dL Assessment and Plan Assessment: Cough concern for pneumonia Add oral Levaquin Chest x-ray showed mild patchy atelectasis versus developing pneumonia Hypoglycemia secondary to glimipiride Resolved. Continue blood sugar checks every AC and HS. Encourage oral intake. Hold oral hypoglycemics. Hypokalemia Hypomagnesemia Replaced. EFRAÍN Improving with IV fluids, seen by nephrology. Renal ultrasound unremarkable Hold losartan and HCTZ IV fluids Check renal function in a.m. HTN was on losartan HCTZ, now held due to renal function Started on norvasc. Chronic Hyperlipidemia, Osteoarthritis (OA) All stable Resume meds Gen weakness: Will need rehab PT and OT DVT prophylaxis Heparin s.q Dispo: likely to rehab in 1-2 days. D/w case management. Awaiting rehab placement
[2022-11-20 17:05] LABS: Glucose,Whole Blood 204 mg/dL (70-110)
[2022-11-20 20:16] LABS: Glucose,Whole Blood 123 mg/dL (70-110)
[2022-11-21 01:58] LABS: Glucose,Whole Blood 138 mg/dL (70-110)
[2022-11-21 06:11] LABS: Basophils % (A) 0 %; Eosinophils # (A) 0.1 k/uL (0-0.7); Eosinophils % (A) 1 %; HCT 31.2 % (39.0-53.0); HGB 10.9 gm/dL (13.0-17.5); Lymphocytes # (A) 0.7 k/uL (1.0-4.8); Lymphocytes % (A) 7 %; MCHC 34.9 g/dL (31.0-37.0); MCV 94.6 fL (80.0-100.0); Mean Platelet Volume 8.4; Monocytes # (A) 0.4 k/uL (0-1.0); Monocytes % (A) 4 %; Neutrophils # (A) 8.8 k/uL (1.3-7.7); Neutrophils % (A) 87 %; Platelet Count 110 k/uL (150-450); RDW 13.1 % (11.5-15.5); WBC 10.1 k/uL (3.8-10.6)
[2022-11-21 06:34] LABS: ALT 217 U/L (4-49); AST 129 U/L (17-59); African American GFR (CKD) 37 (>60 ml/min/1.73 sqM); Albumin 2.4 g/dL (3.5-5.0); Albumin/Globulin Ratio 0.9; Alkaline Phosphatase 80 U/L (38-126); Anion Gap 3 mmol/L; Blood Urea Nitrogen 46 mg/dL (9-20); Calcium 7.7 mg/dL (8.4-10.2); Carbon Dioxide 19 mmol/L (22-30); Chloride 116 mmol/L (98-107); Globulin 2.6 g/dL; Glucose 118 mg/dL (74-99); Non-African American GFR(CKD) 32 (>60 ml/min/1.73 sqM); Potassium 3.6 mmol/L (3.5-5.1); Sodium 138 mmol/L (137-145); Total Bilirubin 0.5 mg/dL (0.2-1.3)
[2022-11-21 07:30] LABS: Glucose,Whole Blood 122 mg/dL (70-110)
[2022-11-21] MEDS: INSULIN ASPART (NovoLOG) 100 UNIT/ML VIAL SQ SCH ×2 (07:35→11:24)
[2022-11-21] MEDS ORDERED: LORATADINE 10 MG TAB PO SCH (09:00)
[2022-11-21] MEDS ORDERED: FLUTICASONE 50MCG/SPRAY NASAL 16GM EA NOSTRIL SCH (09:00)
[2022-11-21] MEDS: ASPIRIN 81 MG PO SCH (09:02)
[2022-11-21] MEDS: LEVOFLOXACIN 500 MG TAB PO SCH (09:02)
[2022-11-21] MEDS: amLODIPine 5 MG TAB PO SCH (09:02)
[2022-11-21] MEDS: CHOLECALCIFEROL 25 MCG (1000 IU) TABLET PO SCH (09:02)
[2022-11-21] MEDS: CITALOPRAM HYDROBROMIDE 20 MG TAB PO SCH (09:02)
[2022-11-21] MEDS: ATORVASTATIN 80 MG TAB PO SCH (09:02)
[2022-11-21] MEDS: METOPROLOL SUCCINATE (ER) 25 MG TAB.ER.24H PO SCH (09:02)
[2022-11-21] MEDS: HEPARIN SODIUM,PORCINE/PF 5,000 UNIT/0.5 ML SYRINGE SQ SCH (09:02)
[2022-11-21] MEDS: NON FORMULARY DRUG (Mirabegron [Myrbetriq] 50 MG Tab.Er.24h) PO SCH (09:04)
[2022-11-21] MEDS: POTASSIUM CHLORIDE ER 20 MEQ TAB.ER PO SCH (09:34)
[2022-11-21 11:23] LABS: Glucose,Whole Blood 133 mg/dL (70-110)
[2022-11-21] MEDS ORDERED: LOSARTAN 50 MG TAB PO SCH (12:30)
--- NOTE | 2022-11-21 12:30 | P.DS ---
Providers Date of admission: 11/13/22 06:14 Attending physician: Theresa Goss MD Primary care physician: Physician Nonstaff Hospital Course: Admitting diagnoses: Hypoglycemia AK I Discharge diagnoses: Hypoglycemia due to glimepiride resolved Cough Pneumonia improving EFRAÍN on CKD improved Hypertension Hyperlipidemia Osteoarthritis Generalized weakness 82-year-old male with a past medical history including diabetes on oral hypoglycemics ''glimipiride'' and hypertension presented emergency department for episodes of hypoglycemia. The patient stated that he has had episodes of hypoglycemia today and noted to be weak, unable to stand so he called EMS. EMS did state that the sugar was approximately 28. The patient did receive D50 prior to arrival to the ER and in the ER due to continued hypoglycemia. He was started on D5W gtt. He continued to ahve low glucose despite that. Patient states that recently over the past several days he has been sick with diarrhea, vomiting, and flulike symptoms including cough since last Thursday. He has not been eating or drinking much due to being sick. He denied having any fever..The patient continued to take his prescribed antidiabetic medications. General: [no distress], [appears at stated age] Derm: [warm], [dry] Head: [atraumatic], [normocephalic], [symmetric] Eyes: [EOMI], [no lid lag], [anicteric sclera] Mouth: [no lip lesion], [mucus membranes moist] Cardiovascular: [S1S2 reg], [no murmur], [positive posterior tibial pulse bilateral], Lungs: [CTA bilateral], [no rhonchi, no rales] , [no accessory muscle use] Abdominal: [soft], [ nontender to palpation], [no guarding], [no appreciable organomegaly] Ext: [no gross muscle atrophy], [no edema], [no contractures] Neuro: [ CN II-XI grossly intact], [no focal neuro deficits] Psych: [Alert], [oriented], [appropriate affect] Assessment/plan Cough concern for pneumonia oral Levaquin Chest x-ray showed mild patchy atelectasis versus developing pneumonia Hypoglycemia secondary to glimipiride Resolved. Continue blood sugar checks every AC and HS. Encourage oral intake. Hold oral hypoglycemics. Hypokalemia Hypomagnesemia Replaced. EFRAÍN Improving with IV fluids, seen by nephrology. Patient's back at baseline creatinine 1.89 Renal ultrasound unremarkable Check renal function in a.m. HTN was on losartan/HCTZ, now held due to renal function Started on norvasc and metoprolol bp still elevated losartan will be reintroduced HCTZ discontinued Chronic Hyperlipidemia, Osteoarthritis (OA) All stable Resume meds Gen weakness: Will need rehab PT and OT DVT prophylaxis Heparin s.q Disposition: Rehab Activity: As tolerated Diet: Diabetic Condition: Stable Follow-up with PCP in 1-2 days Follow-up with nephrology in 1 week Patient Condition at Discharge: Stable Plan - Discharge Summary Discharge Rx Participant: No New Discharge Prescriptions: New Loratadine [Claritin] 10 mg PO DAILY #30 tab Levofloxacin [Levaquin] 750 mg PO Q48H #5 tab Fluticasone Nasal [place] [Flonase Nasal [place]] 2 spray EA NOSTRIL DAILY #1 ml Metoprolol Succinate (ER) [Toprol XL] 25 mg PO BID #60 tab Continue Aspirin 81 mg PO DAILY Vit C/E/Zn/Coppr/Lutein/Zeaxan [Preservision Areds 2 Softgel] 1 cap PO BID Atorvastatin [Lipitor] 80 mg PO DAILY Glimepiride [Amaryl] 1 mg PO BID Cholecalciferol (Vitamin D3) [Vitamin D3 (3000 Iu)] 75 mcg PO DAILY Mirabegron [Myrbetriq] 50 mg PO DAILY Vitamin B Complex 1 cap PO DAILY amLODIPine BESYLATE 5 mg PO DAILY PRN PRN Reason: Blood Pressure - High Losartan/Hydrochlorothiazide [Losartan-Hctz 100-25 mg Tab] 1 tab PO DAILY Citalopram Hydrobromide [Citalopram HBr] 40 mg PO DAILY Discharge Medication List Aspirin 81 mg PO DAILY 06/16/14 [History] Vit C/E/Zn/Coppr/Lutein/Zeaxan [Preservision Areds 2 Softgel] 1 cap PO BID 06/16/14 [History] Atorvastatin [Lipitor] 80 mg PO DAILY 03/10/19 [History] Glimepiride [Amaryl] 1 mg PO BID 03/10/19 [History] Citalopram Hydrobromide [Citalopram HBr] 40 mg PO DAILY 08/01/21 [History] Losartan/Hydrochlorothiazide [Losartan-Hctz 100-25 mg Tab] 1 tab PO DAILY 08/01/21 [History] amLODIPine BESYLATE 5 mg PO DAILY PRN 08/01/21 [History] Cholecalciferol (Vitamin D3) [Vitamin D3 (3000 Iu)] 75 mcg PO DAILY 11/13/22 [History] Mirabegron [Myrbetriq] 50 mg PO DAILY 11/13/22 [History] Vitamin B Complex 1 cap PO DAILY 11/13/22 [History] Fluticasone Nasal [place] [Flonase Nasal [place]] 2 spray EA NOSTRIL DAILY #1 ml 11/21/22 [Rx] Levofloxacin [Levaquin] 750 mg PO Q48H #5 tab 11/21/22 [Rx] Loratadine [Claritin] 10 mg PO DAILY #30 tab 11/21/22 [Rx] Metoprolol Succinate (ER) [Toprol XL] 25 mg PO BID #60 tab 11/21/22 [Rx] Follow up Appointment(s)/Referral(s): Nonstaff,Physician [Primary Care Provider] - 1-2 days
[2022-11-21 13:19] VITALS: BP 151/63; PULSE 67; RESP 18; TEMP 98.1
--- NOTE | 2022-11-21 14:45 | P.PN ---
Subjective Patient is seen in follow-up for acute kidney injury on chronic kidney disease. Renal function stable. Receiving IV fluids. Has been eating. Serum creatinine at 1.8, down from 2.5 on initial admission. Previous creatinine 1.4 on 06/11/2022 No significant complaints. For discharge today. Objective - Vital Signs Vital signs: Vital Signs Temp 98.1 F 11/21/22 13:19 Pulse 67 11/21/22 13:19 Resp 18 11/21/22 13:19 BP 151/63 11/21/22 13:19 Pulse Ox 93 L 11/21/22 13:19 FiO2 Intake & Output 11/20/22 11/21/22 11/21/22 18:59 06:59 18:59 Intake Total 240 Output Total 501 550 Balance -261 -550 Intake: Oral 240 Output: Urine 501 550 Other: Voiding Method Urinal Urinal Urinal # Voids 2 1 # Bowel Movements 1 1 - Exam Awake, comfortable, no acute distress Alert oriented 3 Examination of the heart S1 and S2 Examination lungs bilateral breath sounds are heard Abdomen is soft nontender Examination of the lower extremities shows 1+ edema bilaterally - Labs CBC & Chem 7: 11/21/22 05:12 11/21/22 05:12 Labs: Abnormal Lab Results - Last 24 Hours (Table) 11/20/22 11/20/22 11/21/22 Range/Units 17:03 20:14 01:55 RBC (4.30-5.90) m/uL Hgb (13.0-17.5) gm/dL Hct (39.0-53.0) % Plt Count (150-450) k/uL Neutrophils # (1.3-7.7) k/uL Lymphocytes # (1.0-4.8) k/uL Chloride (98-107) mmol/L Carbon Dioxide (22-30) mmol/L BUN (9-20) mg/dL Creatinine (0.66-1.25) mg/dL Glucose (74-99) mg/dL POC Glucose (mg/dL) 204 H 123 H 138 H (70-110) mg/dL Calcium (8.4-10.2) mg/dL AST (17-59) U/L ALT (4-49) U/L Total Protein (6.3-8.2) g/dL Albumin (3.5-5.0) g/dL 11/21/22 11/21/22 11/21/22 Range/Units 05:12 05:12 07:29 RBC 3.30 L (4.30-5.90) m/uL Hgb 10.9 L (13.0-17.5) gm/dL Hct 31.2 L (39.0-53.0) % Plt Count 110 L (150-450) k/uL Neutrophils # 8.8 H (1.3-7.7) k/uL Lymphocytes # 0.7 L (1.0-4.8) k/uL Chloride 116 H (98-107) mmol/L Carbon Dioxide 19 L (22-30) mmol/L BUN 46 H (9-20) mg/dL Creatinine 1.89 H (0.66-1.25) mg/dL Glucose 118 H (74-99) mg/dL POC Glucose (mg/dL) 122 H (70-110) mg/dL Calcium 7.7 L (8.4-10.2) mg/dL AST 129 H (17-59) U/L ALT 217 H (4-49) U/L Total Protein 5.0 L (6.3-8.2) g/dL Albumin 2.4 L (3.5-5.0) g/dL 11/21/22 Range/Units 11:21 RBC (4.30-5.90) m/uL Hgb (13.0-17.5) gm/dL Hct (39.0-53.0) % Plt Count (150-450) k/uL Neutrophils # (1.3-7.7) k/uL Lymphocytes # (1.0-4.8) k/uL Chloride (98-107) mmol/L Carbon Dioxide (22-30) mmol/L BUN (9-20) mg/dL Creatinine (0.66-1.25) mg/dL Glucose (74-99) mg/dL POC Glucose (mg/dL) 133 H (70-110) mg/dL Calcium (8.4-10.2) mg/dL AST (17-59) U/L ALT (4-49) U/L Total Protein (6.3-8.2) g/dL Albumin (3.5-5.0) g/dL Assessment and Plan Assessment: 1. Acute kidney injury mostly prerenal secondary to poor intake and further worsened with the use of RYAN inhibitor and diuretic. Creatinine 2.51 on admission - 1.8 today. No hydronephrosis noted on kidney ultrasound. 2. Hypokalemia from poor intake and diuretic use. Being replaced. 3. Hypomagnesemia from poor intake and diuretic use. Replaced. Better. 4. Diabetes with hypoglycemia. 5. Hypertension with chronic kidney disease. 6. 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 Serologies in the past have been negative except for positive MAYELIN. Plan: F/u as out patient for CKD.
[2022-11-22] MEDS ORDERED: LEVOFLOXACIN 750 MG TAB PO SCH (08:00)
== END 2022-11-21 14:15 | DRG 637 ==
LOC: EC 03:12 → 5NMEDONC 06:14 → 3SCARD 16:21 → 5NMEDONC 11-14 11:19
PROVIDERS: ADMIT Internal Medicine; ATTEND Internal Medicine
DX: E11.649 Type 2 diabetes mellitus with hypoglycemia without coma (principal); J18.9 Pneumonia, unspecified organism; T38.3X5A Adverse effect of insulin and oral hypoglycemic [antidiabetic] drugs, initial encounter; N17.9 Acute kidney failure, unspecified; N18.32 Chronic kidney disease, stage 3b; M19.90 Unspecified osteoarthritis, unspecified site; E11.22 Type 2 diabetes mellitus with diabetic chronic kidney disease; E78.5 Hyperlipidemia, unspecified; E83.42 Hypomagnesemia; E87.6 Hypokalemia; H91.90 Unspecified hearing loss, unspecified ear; H35.30 Unspecified macular degeneration; I12.9 Hypertensive chronic kidney disease with stage 1 through stage 4 chronic kidney disease, or unspecified chronic kidney disease; I25.2 Old myocardial infarction; Z79.82 Long term (current) use of aspirin; Z79.84 Long term (current) use of oral hypoglycemic drugs; Z79.899 Other long term (current) drug therapy; Z96.651 Presence of right artificial knee joint; Z71.3 Dietary counseling and surveillance; Z88.1 Allergy status to other antibiotic agents; Z88.5 Allergy status to narcotic agent; Z88.0 Allergy status to penicillin; Z88.2 Allergy status to sulfonamides
CPT/HCPCS: 36415; 51798; 71046; 76770; 80048; 80053; 81001; 83735; 84100; 84132; 85025; 96361; 96365; 96366; 96367; 96368; 96375; 96376; 99285

== ENCOUNTER → 2023-12-25 | Outpatient (CLI) | payer MEDICARE ==
--- NOTE | 2023-12-25 13:40 | US ---
EXAMINATION TYPE: US kidneys/renal and bladder DATE OF EXAM: 12/25/2023 COMPARISON: NONE CLINICAL INDICATION: Male, 83 years old with history of N18.31 CHRONIC KIDNEY DISEASE, STAGE 3A; CKD, no symptoms EXAM MEASUREMENTS: Right Kidney: 9.5 x 4.5 x 6.1 cm Left Kidney: 10.3 x 4.2 x 6.5 cm Right Kidney: No hydronephrosis or masses seen Left Kidney: lateral cystic structure = 0.9 x 0.8 x 0.7cm Bladder: did not fill bladder all the way, irregular wall appearance may be due to not being distende d There is no evidence for hydronephrosis at this point in time. No nephrolithiasis is seen. No kusum s are identified. Bilateral ureteral jets are seen. IMPRESSION: 1. Limited evaluation of the urinary bladder. 2. Simple cyst left kidney.
== END | disposition home or self-care (01) ==
LOC: RADUSWWP 12:40
PROVIDERS: ATTEND Internal Medicine Nephrology
DX: N18.31 Chronic kidney disease, stage 3a (principal); N28.1 Cyst of kidney, acquired
CPT/HCPCS: 76770

== ENCOUNTER → 2024-11-21 | Outpatient (CLI) | payer MEDICARE ==
[2024-11-21 15:44] LABS: BUN/Creat Ratio 22.57 Ratio (12.00-20.00); Blood Urea Nitrogen 47.4 mg/dL (9.0-27.0); Calcium 9.8 mg/dL (8.7-10.3); Carbon Dioxide 24.3 mmol/L (21.6-31.8); Chloride 107 mmol/L (96-109); Glucose 159 mg/dL (70-110); Potassium 4.3 mmol/L (3.5-5.5); Sodium 144 mmol/L (135-145)
== END | disposition home or self-care (01) ==
LOC: LABWHC1 09:28
PROVIDERS: ATTEND Internal Medicine Nephrology
DX: N18.31 Chronic kidney disease, stage 3a (principal)
CPT/HCPCS: 36415; 80048

== ENCOUNTER → 2024-11-22 | Outpatient (CLI) | payer MEDICARE ==
--- NOTE | 2024-11-22 10:32 | US ---
EXAMINATION TYPE: US kidneys/renal and bladder DATE OF EXAM: 11/22/2024 COMPARISON: 12/25/2023 CLINICAL INDICATION: Male, 84 years old with history of K76.89 OTHR DIS OF LIVER; CKD 3 TECHNIQUE: Grayscale imaging of the bilateral kidneys and urinary bladder: FINDINGS: EXAM MEASUREMENTS: Right Kidney: 9.9 x 5.0 x 5.1 cm Left Kidney: 10.9 x 5.1 x 4.2 cm Right Kidney: No hydronephrosis or masses seen Left Kidney: No hydronephrosis or masses seen Bladder: Partially distended bladder resulting in limited assessment. Bilateral Jets seen: no IMPRESSION: No hydronephrosis. [facility], , 11/22/2024 10:29 AM
== END | disposition home or self-care (01) ==
LOC: RADUSWWP 08:43
PROVIDERS: ATTEND Internal Medicine Nephrology
DX: N18.31 Chronic kidney disease, stage 3a (principal)
CPT/HCPCS: 76770

== ENCOUNTER 2025-01-20 09:07 | Observation (INO) | payer MEDICARE ==
--- NOTE | 2025-01-20 09:27 | ED ---
Chest Pain HPI - General Chief Complaint: Chest Pain Stated Complaint: Chest pain Time Seen by Provider: 01/20/25 09:16 Source: patient, RN notes reviewed Mode of arrival: ambulatory Limitations: no limitations - History of Present Illness Initial Comments: This is an 84-year-old male who presents to the emergency department for chest pain. States that it has been intermittent over the last couple of weeks. This tends to flareup with any exertional activity. States that walking out to the car today caused him to develop pain in his chest that resolved with rest. This was a left-sided pressure sensation. He does have associated shortness of breath when this occurs. He tried taking nitroglycerin a couple of days ago when this pain occurred, but does not believe it was effective. This was the only time he tried taking it. He currently follows with Dr. Brandon. He had an angioplasty in 1991. However, he did not have any stents placed. States that they were discussing doing another one of these procedures for the bottom of his heart, however they have not yet scheduled it. Of note, his medical chart says that he has had a CABG, which is not the case. MD Complaint: chest pain - Related Data Home Medications Medication Instructions Recorded Confirmed Aspirin 81 mg PO DAILY 06/16/14 01/20/25 Vit C/E/Zn/Coppr/Lutein/Zeaxan 1 cap PO BID 06/16/14 01/20/25 [Preservision Areds 2 Softgel] Atorvastatin [Lipitor] 80 mg PO DAILY 03/10/19 01/20/25 Cholecalciferol (Vitamin D3) 75 mcg PO DAILY 11/13/22 01/20/25 [Vitamin D3 (3000 Iu)] Furosemide [Lasix] 40 mg PO BID 01/20/25 01/20/25 Glimepiride [Amaryl] 1 mg PO BID 01/20/25 01/20/25 Isosorbide Mononitrate ER [Imdur] 30 mg PO DAILY 01/20/25 01/20/25 Losartan/Hydrochlorothiazide 1 tab PO DAILY 01/20/25 01/20/25 [Losartan-Hctz 100-25 mg Tab] Brandon-3/Dha/Epa/Fish Oil [Fish Oil 1 cap PO DAILY 01/20/25 01/20/25 1,000 mg Softgel] hydrALAZINE HCL [Apresoline] 25 mg PO TID 01/20/25 01/20/25 Previous Rx's Medication Instructions Recorded amLODIPine [Norvasc] 5 mg PO BID #60 tab 11/21/22 Allergies Allergy/AdvReac Type Severity Reaction Status Date / Time ciprofloxacin [From Cipro] Allergy Rash/Hives Verified 01/20/25 11:08 hydrocodone bitartrate Allergy Itching Verified 01/20/25 11:08 [From Vicodin] Penicillins Allergy Rash/Hives Verified 01/20/25 11:08 Sulfa (Sulfonamide Allergy Rash/Hives Verified 01/20/25 11:08 Antibiotics) sulfamethoxazole Allergy Rash/Hives Verified 01/20/25 11:08 [From Bactrim] trimethoprim [From Bactrim] Allergy Rash/Hives Verified 01/20/25 11:08 Review of Systems ROS Statement: Those systems with pertinent positive or pertinent negative responses have been documented in the HPI. ROS Other: All systems not noted in ROS Statement are negative. Past Medical History Past Medical History: Diabetes Mellitus, Eye Disorder, Hyperlipidemia, Hyperte nsion, Myocardial Infarction (ID), Osteoarthritis (OA), Prostate Disorder, Renal Disease Additional Past Medical History / Comment(s): Macular degeneration. Blood in stool. Catheter after prostate surgery for quite some time, 7-8 yrs ago. Chronic Kidney disease r/t Neprosclerosis. Last Myocardial Infarction Date:: 1991 History of Any Multi-Drug Resistant Organisms: None Reported Past Surgical History: Coronary Bypass/CABG, Joint Replacement, Orthopedic Surgery, Prostate Surgery Additional Past Surgical History / Comment(s): Nose surgery, knee surgery, right knee replacement. Femoral bypass/no stents. Past Anesthesia/Blood Transfusion Reactions: No Reported Reaction Past Psychological History: No Psychological Hx Reported Smoking Status: Former smoker Past Alcohol Use History: None Reported Past Drug Use History: None Reported - Past Family History Father Family Medical History: Cancer Mother Additional Family Medical History / Comment(s): Brain aneurysym. General Exam Limitations: no limitations General appearance: alert, in no apparent distress Head exam: Present: atraumatic, normocephalic, normal inspection Respiratory exam: Present: normal lung sounds bilaterally. Absent: respiratory distress, wheezes, rales, rhonchi, stridor Cardiovascular Exam: Present: regular rate, normal rhythm Neurological exam: Present: alert, oriented X3, CN II-XII intact Psychiatric exam: Present: normal affect, normal mood Skin exam: Present: warm, dry, intact, normal color. Absent: rash Course Vital Signs 01/20/25 01/20/25 01/20/25 09:13 09:40 09:45 Temperature 97.6 F 98.1 F Pulse Rate 74 64 Pulse Rate [ 62 Onion Farmer ] Respiratory 20 18 Rate Blood Pressure 116/57 115/72 O2 Sat by Pulse 96 94 L Oximetry 01/20/25 01/20/25 01/20/25 10:00 10:56 11:05 Temperature 98.0 F Pulse Rate 62 63 64 Pulse Rate [ Onion Farmer ] Respiratory 16 18 20 Rate Blood Pressure 122/56 119/58 111/68 O2 Sat by Pulse 94 L 94 L 93 L Oximetry 01/20/25 11:41 Temperature Pulse Rate 62 Pulse Rate [ Onion Farmer ] Respiratory 20 Rate Blood Pressure O2 Sat by Pulse 94 L Oximetry Chest Pain MDM - MDM This is an 84-year-old male who presents to the emergency department for chest pain. Was pt. sent in by a medical professional or institution? @ -No Did you speak to anyone other than the patient for history? @ -No Did you review nursing and triage notes? @ -Yes, and I agree, it is accurate with regards to the patient's symptoms. Were old charts reviewed? @ -No Differential Diagnosis? @ -Differential Chest Pain: Stable Angina, Unstable Angina, STEMI, NSTEMI Aortic Dissection, Pneumothorax, Musculoskeletal, Esophageal Spasm GERD, Cholecystitis, Pancreatitis, Zoster, this is not meant to be an all-inclusive list. EKG interpreted by me (3pts min.)? @ -EKG interpreted by me demonstrating the following: Sinus rhythm. Ventricular rate 69 bpm, LA interval 145 ms, QRS duration 101 ms, QTc 419 ms. X-rays interpreted by me (1pt min.)? @ -Chest x-ray obtained. My interpretation identifies bilateral basilar opacities. CT interpreted by me (1pt min.)? @ -Not obtained U/S interpreted by me (1pt. min.)? @ -Not obtained What testing was considered but not performed? (CT, X-rays, U/S, labs)? Why? @ -None What meds were considered but not given? Why? @ -None Did you discuss the management of the patient with other professionals? @ -No Did you reconcile home meds? @ -No Was smoking cessation discussed for >3mins.? @ -No Was critical care preformed (if so, how long)? @ -No Were there social determinants of health that impacted care today? How? (Homelessness, low income, unemployed, alcoholism, drug addiction, transportat ion, low edu. Level, literacy, decrease access to med. care, skilled nursing, rehab)? @ -No Was there de-escalation of care discussed even if they declined? (Discuss DNR or withdrawal of care, Hospice)? @ -No What co-morbidities impacted this encounter? (DM, HTN, Smoking, COPD, CAD, Cancer, CVA, Hep., AIDS, mental health diagnosis, sleep apnea, morbid obesity)? @ -CAD, HLD, HTN, DM Was patient admitted / discharged? @ -Admitted. Lab work demonstrates decreased renal function which is similar when compared with prior. Lab work otherwise relatively unremarkable. Troponin negative. Chest x-ray demonstrates persistent right basilar opacity favoring scarring. There is also a new left basilar acute infiltrate and/or atelectasis. He denies any URI symptoms such as coughing/congestion or shortness of breath. Patient was not exhibiting any active chest pain in the emergency department. However, he was exhibiting significant exertional chest pain before arrival and intermittently recently. Given his cardiac history with other risk factors and description of his symptoms, patient was admitted to medicine for further management of chest pain. Serial troponins ordered and consult was placed for cardiology. Case discussed with ED attending Dr. Vaca. Undiagnosed new problem with uncertain prognosis? @ -None Drug Therapy requiring intensive monitoring for toxicity (Heparin, Nitro, Insulin, Cardizem)? @ -None Were any procedures done? @ -None Diagnosis/symptom? @ -Chest pain Acute, or Chronic, or Acute on Chronic? @ -Acute Uncomplicated (without systemic symptoms) or Complicated (systemic symptoms)? @ -Complicated Side effects of treatment? @ -None Exacerbation, Progression, or Severe Exacerbation] @ -Not applicable Poses a threat to life or bodily function? @ -Yes, if due to ACS can lead to Disposition Clinical Impression: Chest pain, Hx of coronary artery disease Disposition: ADMITTED IP TO THIS HOSP
[2025-01-20] MEDS: ASPIRIN 81 MG PO STA (09:43)
[2025-01-20 09:50] LABS: Basophils # (A) 0.1 k/uL (0-0.2); Basophils % (A) 1 %; Eosinophils # (A) 0.4 k/uL (0-0.7); Eosinophils % (A) 4 %; HCT 35.7 % (39.0-53.0); HGB 11.5 gm/dL (13.0-17.5); Lymphocytes # (A) 1.7 k/uL (1.0-4.8); Lymphocytes % (A) 19 %; MCH 31.5 pg (25.0-35.0); MCHC 32.2 g/dL (31.0-37.0); MCV 97.8 fL (80.0-100.0); Mean Platelet Volume 7.7; Monocytes # (A) 0.5 k/uL (0-1.0); Monocytes % (A) 6 %; Neutrophils # (A) 6.2 k/uL (1.3-7.7); Neutrophils % (A) 69 %; Platelet Count 168 k/uL (150-450); RBC 3.65 m/uL (4.30-5.90); RDW 13.1 % (11.5-15.5)
--- NOTE | 2025-01-20 10:09 | XR ---
EXAMINATION TYPE: XR chest 2V DATE OF EXAM: 01/20/2025 10:02 AM COMPARISON: Chest x-ray November 19, 2022 CLINICAL INDICATION: Male, 84 years old with history of Chest Pain, TECHNIQUE: Frontal and lateral views of the chest are obtained. FINDINGS: Persistent right basilar opacity favoring scarring. In the left basilar opacity. The cardi ac silhouette size is stable and within normal limits. The osseous structures are intact. IMPRESSION: Persistent right basilar opacity favoring scarring. New Left basilar acute infiltrate and/or atelectasis. [facility], , 01/20/2025 10:06 AM
[2025-01-20 10:11] LABS: Partial Thromboplastin Time 23.7 sec (22.0-30.0); Prothrombin Time 10.8 sec (10.0-12.5)
[2025-01-20 10:35] LABS: ALT 23 U/L (4-49); AST 23 U/L (17-59); African American GFR (CKD) 35 (>60 ml/min/1.73 sqM); Albumin 4.1 g/dL (3.5-5.0); Alkaline Phosphatase 116 U/L (38-126); Anion Gap 11 mmol/L; Blood Urea Nitrogen 52 mg/dL (9-20); Calcium 9.6 mg/dL (8.4-10.2); Carbon Dioxide 23 mmol/L (22-30); Chloride 103 mmol/L (98-107); Glucose 98 mg/dL (74-99); Magnesium 1.9 mg/dL (1.6-2.3); Non-African American GFR(CKD) 30 (>60 ml/min/1.73 sqM); Potassium 4.1 mmol/L (3.5-5.1); Sodium 137 mmol/L (137-145); Total Bilirubin 0.4 mg/dL (0.2-1.3); Total Protein 6.8 g/dL (6.3-8.2)
[2025-01-20] MEDS ORDERED: NALOXONE 0.4 MG/ML 1 ML VIAL IV PRN (10:46)
[2025-01-20] MEDS ORDERED: ONDANSETRON 4 MG/2 ML VIAL IVP PRN (10:46)
[2025-01-20] MEDS ORDERED: ACETAMINOPHEN TAB 325 MG TAB PO PRN (10:46)
[2025-01-20] MEDS: METOPROLOL TARTRATE 12.5 MG TAB PO SCH (13:07)
--- NOTE | 2025-01-20 13:29 | P.CRDCN ---
History of Present Illness Consult date: 01/20/25 Consult reason: chest pain History of present illness: This is an 84-year-old male patient of Dr. Brandon with past medical history of hypertension, hyperlipidemia, coronary artery disease status post balloon angioplasty in 1992, diabetes mellitus type 2, mild aortic stenosis, chronic kidney disease with baseline creatinine of 1.4. We have been asked to evaluate the patient for chest pain. Patient gives history that he had mid sternal chest pain for the past 3 to 4 months. He does not have any pain at this time. Pain does not worsen with deep breathing. Pain occurs when he walks from the house to the car or to the bathroom or to the basement. He was last seen in the office on 12/21/2024 and at that time it was noted he was having episodes of chest pain blood pressure was elevated as well and he was taking nitro glycerin with relief. Plan was for trial of Imdur. Patient was not a good candidate for cardiac catheterization due to his chronic kidney disease. Blood pressure 134/65, heart rate 64, pulse ox 97% on room air. -EKG: Sinus rhythm LVH. -Chest x-ray: Persistent right basilar opacity favoring scarring. New left bas ilar acute infiltrate and/or atelectasis. -Laboratory studies: Hemoglobin 1.5. BUN 52 creatinine 1.97. Troponin negative x 1. -Home cardiac medications: Amlodipine 5 mg twice daily, aspirin 81 mg daily, atorvastatin 80 mg daily, Lasix 40 mg twice daily, hydralazine 25 mg 3 times daily, Imdur 30 mg daily, losartan hydrochlorothiazide 1 tablet daily, omega-3. -Lexiscan Cardiolite stress test performed in the office on 03/10/2024 revealed nonspecific stress EKG portion secondary to baseline EKG abnormalities. Predominantly fixed inferior perfusion defect consistent with diaphragmatic attenuation artifact however additional inferior lateral reversibility consistent with ischemia. Left ventricular EF of 55%. Echocardiogram performed in the office on 03/10/2024 revealed EF of 50 to 55%, small hypokinetic area in the inferior wall at the base. Grade 1 diastolic dysfunction. Mild left ventricular hypertrophy. Mild aortic stenosis. Mild mitral regurgitation. Mild to moderate mitral stenosis. Mild tricuspid regurgitation. PASP 38 mmHg. Review Of Systems: At the time of my exam: CONSTITUTIONAL: Denies fever or chills. HEENT: Denies blurred vision, vision changes, or eye pain. Denies hemoptysis CARDIOVASCULAR: Reports exertional chest pain. Denies orthopnea. Denies PND. Denies palpitations RESPIRATORY: Denies shortness of breath. GASTROINTESTINAL: Denies abdominal pain. Denies nausea or vomiting. HEMATOLOGIC: Denies bleeding disorders. GENITOURINARY: Denies any blood in urine. SKIN: Denies puritis. Denies rash. Physical examination: Gen: This is an 84-year-old male in no acute distress VS: reviewed HEENT: Head is atraumatic, normocephalic. Pupils equal, round. Sclerae is anicteric. NECK: Supple. No JVD. LUNGS: Clear to auscultation. No wheezes or rhonchi. No intercostal retractions. HEART: Regular rate and rhythm. No murmur. ABDOMEN: Soft No tenderness. EXTREMITIES: No pedal edema. No calf tenderness. NEUROLOGICAL: Patient is awake, alert and oriented x3. Assessment: Exertional chest pain, possible angina Abnormal Lexiscan stress test 02/2024 History of coronary artery disease with previous balloon angioplasty diabetes mellitus type 2 Mild aortic stenosis Chronic kidney disease Hypertension Hyperlipidemia Plan: Resume patient's home cardiac medications with the following changes Increase hydralazine to 50 mg 3 times daily Complete troponin x 3 Monitor kidney function Obtain 2-D echocardiogram and Doppler study to assess cardiac structure and fun ction Further recommendations to follow based upon clinical course Thank you kindly for this consultation. Nurse practitioner note has been reviewed, I agree with documented findings and plan of care. Patient was seen and examined. Past Medical History Past Medical History: Diabetes Mellitus, Eye Disorder, Hyperlipidemia, Hypertension, Myocardial Infarction ([place]), Osteoarthritis (OA), Prostate Disorder, Renal Disease Additional Past Medical History / Comment(s): Macular degeneration. Blood in stool. Catheter after prostate surgery for quite some time, 7-8 yrs ago. Chronic Kidney disease r/t Neprosclerosis. Last Myocardial Infarction Date:: 1991 History of Any Multi-Drug Resistant Organisms: None Reported Past Surgical History: Coronary Bypass/CABG, Joint Replacement, Orthopedic Surgery, Prostate Surgery Additional Past Surgical History / Comment(s): Nose surgery, knee surgery, right knee replacement. Femoral bypass/no stents. Past Anesthesia/Blood Transfusion Reactions: No Reported Reaction Past Psychological History: No Psychological Hx Reported Smoking Status: Former smoker Past Alcohol Use History: None Reported Past Drug Use History: None Reported - Past Family History Father Family Medical History: Cancer Mother Additional Family Medical History / Comment(s): Brain aneurysym. Medications and Allergies Home Medications Medication Instructions Recorded Confirmed Type Aspirin 81 mg PO DAILY 06/16/14 01/20/25 History Vit C/E/Zn/Coppr/Lutein/Zeaxan 1 cap PO BID 06/16/14 01/20/25 History [Preservision Areds 2 Softgel] Atorvastatin [Lipitor] 80 mg PO DAILY 03/10/19 01/20/25 History Cholecalciferol (Vitamin D3) 75 mcg PO DAILY 11/13/22 01/20/25 History [Vitamin D3 (3000 Iu)] amLODIPine [Norvasc] 5 mg PO BID #60 tab 11/21/22 01/20/25 Rx Furosemide [Lasix] 40 mg PO BID 01/20/25 01/20/25 History Glimepiride [Amaryl] 1 mg PO BID 01/20/25 01/20/25 History Isosorbide Mononitrate ER [Imdur] 30 mg PO DAILY 01/20/25 01/20/25 History Losartan/Hydrochlorothiazide 1 tab PO DAILY 01/20/25 01/20/25 History [Losartan-Hctz 100-25 mg Tab] [place]-3/Dha/Epa/Fish Oil [Fish Oil 1 cap PO DAILY 01/20/25 01/20/25 History 1,000 mg Softgel] hydrALAZINE HCL [Apresoline] 25 mg PO TID 01/20/25 01/20/25 History Allergies Allergy/AdvReac Type Severity Reaction Status Date / Time ciprofloxacin [From Cipro] Allergy Rash/Hives Verified 01/20/25 11:08 hydrocodone bitartrate Allergy Itching Verified 01/20/25 11:08 [From Vicodin] Penicillins Allergy Rash/Hives Verified 01/20/25 11:08 Sulfa (Sulfonamide Allergy Rash/Hives Verified 01/20/25 11:08 Antibiotics) sulfamethoxazole Allergy Rash/Hives Verified 01/20/25 11:08 [From Bactrim] trimethoprim [From Bactrim] Allergy Rash/Hives Verified 01/20/25 11:08 Physical Exam Vitals: Vital Signs Temp Pulse Pulse Resp BP Pulse Ox 01/20/25 11:05 64 20 111/68 93 L 01/20/25 10:56 98.0 F 63 18 119/58 94 L 01/20/25 10:00 62 16 122/56 94 L 01/20/25 09:45 62 01/20/25 09:40 98.1 F 64 18 115/72 94 L 01/20/25 09:13 97.6 F 74 20 116/57 96 Intake and Output 01/19/25 01/20/25 01/20/25 22:59 06:59 14:59 Other: Weight 102.058 kg Results 01/20/25 09:38 01/20/25 09:38 Cardiac Enzymes 01/20/25 01/20/25 Range/Units 09:38 09:38 AST 23 (17-59) U/L Troponin I <0.012 (0.000-0.034) ng/mL Coagulation 01/20/25 Range/Units 09:38 PT 10.8 (10.0-12.5) sec APTT 23.7 (22.0-30.0) sec CBC 01/20/25 Range/Units 09:38 WBC 9.0 (3.8-10.6) k/uL RBC 3.65 L (4.30-5.90) m/uL Hgb 11.5 L (13.0-17.5) gm/dL Hct 35.7 L (39.0-53.0) % Plt Count 168 (150-450) k/uL Comprehensive Metabolic Panel 01/20/25 Range/Units 09:38 Sodium 137 (137-145) mmol/L Potassium 4.1 (3.5-5.1) mmol/L Chloride 103 (98-107) mmol/L Carbon Dioxide 23 (22-30) mmol/L BUN 52 H (9-20) mg/dL Creatinine 1.97 H (0.66-1.25) mg/dL Glucose 98 (74-99) mg/dL Calcium 9.6 (8.4-10.2) mg/dL AST 23 (17-59) U/L ALT 23 (4-49) U/L Alkaline Phosphatase 116 (38-126) U/L Total Protein 6.8 (6.3-8.2) g/dL Albumin 4.1 (3.5-5.0) g/dL Current Medications Generic Name Dose Route Start Last Admin Trade Name Freq PRN Reason Stop Dose Admin Acetaminophen 650 mg 01/20/25 10:46 Acetaminophen Tab 325 Mg Tab PO Q6HR PRN Mild Pain or Fever > 100.5 Naloxone HCl 0.2 mg 01/20/25 10:46 Naloxone 0.4 Mg/Ml 1 Ml Vial IV Q2M PRN Opioid Reversal Ondansetron HCl 4 mg 01/20/25 10:46 Ondansetron 4 Mg/2 Ml Vial IVP Q8HR PRN Nausea And Vomiting Pantoprazole Sodium 40 mg 01/21/25 09:00 Pantoprazole 40 Mg/10 Ml Vial IV DAILY JOSSELIN Intake and Output 01/19/25 01/20/25 01/20/25 22:59 06:59 14:59 Other: Weight 102.058 kg Patient Weight 01/21/25 06:59 Weight 102.058 kg 01/20/25 09:38 01/20/25 09:38
[2025-01-20] MEDS: hydrALAZINE HCL 25 MG TAB PO SCH (17:38)
--- NOTE | 2025-01-20 18:20 | CA ---
Transthoracic Echo Report Name: Corbin Silva Age: 84 Gender: M : 1940 Exam Date: 01/20/2025 15:40 Exam Location: [facility] Ht (in): 69 Wt (lb): 225 Ordering Physician: Candace Churchill Attending/Referring Phys: Development Expert Areli Perry RDCS Procedure CPT: Indications: angina, mild Cardiac Hx: Technical Quality: Fair Contrast 1: Definity Total Dose (mL): 2 Contrast 2: Total Dose (mL): MEASUREMENTS (Male / Female) Normal Values 2D ECHO LV Diastolic Diameter PLAX 5.2 cm 4.2 - 5.9 / 3.9 - 5.3 cm LV Systolic Diameter PLAX 4.2 cm IVS Diastolic Thickness 1.3 cm 0.6 - 1.0 / 0.6 - 0.9 cm LVPW Diastolic Thickness 1.5 cm 0.6 - 1.0 / 0.6 - 0.9 cm LV Relative Wall Thickness 0.5 RV Internal Dim ED PLAX 2.4 cm LVOT Diameter 2.3 cm LA Systolic Diameter LX 4.6 cm 3.0 - 4.0 / 2.7 - 3.8 cm LA Volume 80.1 cm??? 18 - 58 / 22 - 52 cm??? LA Volume Index 35.4 cm???/m??? 16 - 28 cm???/m??? DOPPLER AV Peak Velocity 204.2 cm/s AV Peak Gradient 16.7 mmHg AV Mean Velocity 140.9 cm/s AV Mean Gradient 9.7 mmHg AV Velocity Time Integral 43.0 cm LVOT Peak Velocity 99.1 cm/s LVOT Peak Gradient 3.9 mmHg LVOT Velocity Time Integral 23.6 cm LVOT Stroke Volume 100.9 cm??? LVOT Stroke Volume Index 46.4 ml/m??? LVOT Cardiac Index 3164.0 cm???/min???m??? AV Area Cont Eq vti 2.3 cm??? AV Area Cont Eq pk 2.1 cm??? MV Area PHT 2.0 cm??? Mitral E Point Velocity 71.1 cm/s Mitral A Point Velocity 117.9 cm/s Mitral E to A Ratio 0.6 MV Deceleration Time 387.5 ms FINDINGS Left Ventricle Left ventricular ejection fraction is estimated at 55 %. Mildly increased septal wall thickness. Normal left ventricular systolic function with no obvious regional wall motion abnormalities. Right Ventricle Normal right ventricular size and function. Right Atrium Normal right atrial size. Left Atrium Mildly increased left atrial diameter. Moderately increased left atrial volume. Mildly increased left atrial area. Mitral Valve Structurally normal mitral valve. Trace to mild mitral regurgitation. No mitral stenosis. Aortic Valve Trileaflet aortic valve. Mild aortic stenosis with a peak gradient of 17 mmHg and a mean gradient of 10mmHg. Tricuspid Valve Structurally normal tricuspid valve. Trace tricuspid regurgitation. No tricuspid stenosis. Pulmonic Valve Structurally normal pulmonic valve. Trace pulmonic regurgitation. No pulmonic stenosis. Pericardium No pericardial or pleural effusion. Aorta Normal size aortic root and proximal ascending aorta. CONCLUSIONS Diagnosis aortic stenosis, chest pain LVH with preserved systolic function ejection fraction 50 to 55% Mild aortic stenosis Previewed by: Dr. Moise Duenas MD (Electronically Signed) Final Date: 20 January 2025 18:19
[2025-01-20] MEDS: amLODIPine 5 MG TAB PO SCH (20:10)
[2025-01-20 20:14] LABS: Glucose,Whole Blood 149 mg/dL (70-110)
[2025-01-21] MEDS: ISOSORBIDE MONONITRATE ER 30 MG TAB.ER.24H PO SCH (04:59)
[2025-01-21 05:23] LABS: Glucose,Whole Blood 121 mg/dL (70-110)
[2025-01-21] MEDS: LOSARTAN-HCTZ 50-12.5 MG 1 EACH TAB PO SCH (08:31)
[2025-01-21] MEDS: ASPIRIN 81 MG PO SCH (08:32)
[2025-01-21] MEDS: ATORVASTATIN 80 MG TAB PO SCH (08:32)
[2025-01-21] MEDS: FUROSEMIDE 20 MG TAB PO SCH (08:32)
[2025-01-21] MEDS: PANTOPRAZOLE 40 MG TABLET PO SCH (08:32)
[2025-01-21] MEDS ORDERED: PANTOPRAZOLE 40 MG/10 ML VIAL IV SCH (09:00)
[2025-01-21 09:44] LABS: BUN/Creat Ratio 26.94 Ratio (12.00-20.00); Blood Urea Nitrogen 48.5 mg/dL (9.0-27.0); Calcium 8.9 mg/dL (8.7-10.3); Carbon Dioxide 24.1 mmol/L (21.6-31.8); Chloride 108 mmol/L (96-109); Glucose 78 mg/dL (70-110); Potassium 4.2 mmol/L (3.5-5.5); Sodium 142 mmol/L (135-145)
[2025-01-21] MEDS ORDERED: DEXTROSE 50% SYRINGE 50 ML IVP PRN ×2 (10:02)
--- NOTE | 2025-01-21 10:05 | P.HPIM ---
History of Present Illness H&P Date: 01/21/25 84 year old with HTN, HLD, DM, CKD, CAD with balloon angioplasty in 1992 presents to the ED for chest pain. Chest pain intermittent over the past 4 months. Pain worse with exertion (walking to the bathroom). Pain improved with Nitro SL. He denies any headache, LE edema, N/V, fever or chills, cough, shortness of breath, palpitations, dizziness, changes in urination or bowel habits. No changes in appetite or weight. No numbness/weakness/tinging of the extremities. In the ED he underwent extensive evaluation. BP 116/57, HR 74, RR 20, T 97.6F, 96% on RA. CBC, Coag panel, CMP significant for RBC 3.65, Hg 11.5, Hct 35.7, BUN 52, Cr 1.97, glu 149. Trop < 0.012 x 3. Mag 1.9. CXR right basilar opacity favoring scarring, left basilar infiltrate or atelectasis. EKG sinus arrhythmia with LVH. Patient was admitted for chest pain, r/o ACS, Cardiology consultation. Cardiology consulted, Hydralazine increased, Echo ordered which showed EF 50-55% with mild . 01/21 Patient was seen and examined. Upset that he was woken up multiple times last night. He does report chest pain ambulating to the bathroom. BMP BUN 48.5, Cr 1.8, glu 121. General: non toxic, no distress, appears at stated age Derm: warm, dry Head: atraumatic, normocephalic, symmetric Mouth: no lip lesion, mucus membranes moist Cardiovascular: S1S2 reg, systolic murmur Lungs: Clear to auscultation bilaterally, no rales , no accessory muscle use Ext: no gross muscle atrophy, no edema, no contractures Neuro: no focal neuro deficits Psych: Alert and oriented. Based on my assessment of this patient, this patient meets a high complexity level of care. Stable angina with CAD: Poor candidate for cath due to poor renal function. T roponin negative ACS ruled out. Echo as above. ASA 81 mg PO QD. Lipitor 80 mg PO QD. Metoprolol 12.5 mg PO BID. Diabetes mellitus: ISS with accuchecks ACHS. Hypoglycemic precautions. Hypertension: BP 117/54. Metoprolol as above. Amlodipine 5 mg PO BID. Lasix 20 mg PO QD. HCTZ 25 mg PO QD. Losartan 100 mg PO QD. Hydralazine 50 mg PO TID. Imdur 30 mg PO QD. Dyslipidemia: Lipitor as above. CKD stage IIIb: Appears at baseline. CODE STATUS: FULL CODE. DVT Prophylaxis: Lovenox SQ GI Prophylaxis: Protonix PO Designated medical POA if patient is not able to make medical decisions for themselves: Daughter I have reviewed the following medical social consultant notes: ED, Cardiology note. I have reviewed the results of the following tests: As above. I have ordered the following tests: As above. I have discussed the care of this patient with the following independent historian: DANISHA. I have independently interpreted the following test below: EKG. I have discussed the management of this patient with the following physician: Past Medical History Past Medical History: Diabetes Mellitus, Eye Disorder, Hyperlipidemia, Hypertension, Myocardial Infarction ([place]), Osteoarthritis ([place]), Prostate Disorder, Renal Disease Additional Past Medical History / Comment(s): Macular degeneration. Blood in stool. Catheter after prostate surgery for quite some time, 7-8 yrs ago. Chronic Kidney disease r/t Neprosclerosis. Last Myocardial Infarction Date:: 1991 History of Any Multi-Drug Resistant Organisms: None Reported Past Surgical History: Coronary Bypass/CABG, Joint Replacement, Orthopedic Surgery, Prostate Surgery Additional Past Surgical History / Comment(s): Nose surgery, knee surgery, right knee replacement. Femoral bypass/no stents. Past Anesthesia/Blood Transfusion Reactions: No Reported Reaction Past Psychological History: No Psychological Hx Reported Smoking Status: Former smoker Past Alcohol Use History: None Reported Past Drug Use History: None Reported - Past Family History Father Family Medical History: Cancer Mother Additional Family Medical History / Comment(s): Brain aneurysym. Medications and Allergies Home Medications Medication Instructions Recorded Confirmed Type Aspirin 81 mg PO DAILY 06/16/14 01/20/25 History Vit C/E/Zn/Coppr/Lutein/Zeaxan 1 cap PO BID 06/16/14 01/20/25 History [Preservision Areds 2 Softgel] Atorvastatin [Lipitor] 80 mg PO DAILY 03/10/19 01/20/25 History Cholecalciferol (Vitamin D3) 75 mcg PO DAILY 11/13/22 01/20/25 History [Vitamin D3 (3000 Iu)] amLODIPine [Norvasc] 5 mg PO BID #60 tab 01/06/23 03/07/25 Rx Furosemide [Lasix] 40 mg PO BID 01/20/25 01/20/25 History Glimepiride [Amaryl] 1 mg PO BID 01/20/25 01/20/25 History Isosorbide Mononitrate ER [Imdur] 30 mg PO DAILY 01/20/25 01/20/25 History Losartan/Hydrochlorothiazide 1 tab PO DAILY 01/20/25 01/20/25 History [Losartan-Hctz 100-25 mg Tab] [place]-3/Dha/Epa/Fish Oil [Fish Oil 1 cap PO DAILY 01/20/25 01/20/25 History 1,000 mg Softgel] hydrALAZINE HCL [Apresoline] 25 mg PO TID 01/20/25 01/20/25 History Allergies Allergy/AdvReac Type Severity Reaction Status Date / Time ciprofloxacin [From Cipro] Allergy Rash/Hives Verified 01/20/25 11:08 hydrocodone bitartrate Allergy Itching Verified 01/20/25 11:08 [From Vicodin] Penicillins Allergy Rash/Hives Verified 01/20/25 11:08 Sulfa (Sulfonamide Allergy Rash/Hives Verified 01/20/25 11:08 Antibiotics) sulfamethoxazole Allergy Rash/Hives Verified 01/20/25 11:08 [From Bactrim] trimethoprim [From Bactrim] Allergy Rash/Hives Verified 01/20/25 11:08 Physical Exam Vitals: Vital Signs Temp Pulse Pulse Resp BP BP Pulse Ox 01/21/25 05:00 165/73 01/21/25 02:00 97.8 F 67 17 147/72 93 L 01/20/25 20:45 74 166/68 96 01/20/25 20:09 67 118/53 01/20/25 19:44 97.9 F 68 17 144/63 97 01/20/25 18:19 68 23 01/20/25 17:37 74 120/42 01/20/25 13:37 98.2 F 67 26 H 125/53 96 01/20/25 12:15 97.8 F 64 19 134/65 97 01/20/25 11:41 62 20 94 L 01/20/25 11:05 64 20 111/68 93 L 01/20/25 10:56 98.0 F 63 18 119/58 94 L 01/20/25 10:00 62 16 122/56 94 L 01/20/25 09:45 62 01/20/25 09:40 98.1 F 64 18 115/72 94 L 01/20/25 09:13 97.6 F 74 20 116/57 96 Intake and Output 01/20/25 01/21/25 01/21/25 22:59 06:59 14:59 Other: Voiding Method Toilet Toilet # Voids 1 3 Results CBC & Chem 7: 01/20/25 09:38 01/21/25 03:05 Labs: Abnormal Lab Results - Last 24 Hours (Table) 01/20/25 01/20/25 01/20/25 Range/Units 09:38 09:38 20:13 RBC 3.65 L (4.30-5.90) m/uL Hgb 11.5 L (13.0-17.5) gm/dL Hct 35.7 L (39.0-53.0) % BUN 52 H (9-20) mg/dL Creatinine 1.97 H (0.66-1.25) mg/dL POC Glucose (mg/dL) 149 H (70-110) mg/dL 01/21/25 Range/Units 05:22 RBC (4.30-5.90) m/uL Hgb (13.0-17.5) gm/dL Hct (39.0-53.0) % BUN (9-20) mg/dL Creatinine (0.66-1.25) mg/dL POC Glucose (mg/dL) 121 H (70-110) mg/dL Thrombosis Risk Factor Assmnt - Choose All That Apply Any of the Below Risk Factors Present?: No Other Risk Factors: No Other congenital or acquired thrombophilia - If yes, enter type in comment: No Thrombosis Risk Factor Assessment Level: Very Low Risk
[2025-01-21 12:49] LABS: Glucose,Whole Blood 96 mg/dL (70-110)
[2025-01-21] MEDS: INSULIN LISPRO (HumaLOG) 100 UNIT/ML 10 mL VL SQ SCH (12:56)
[2025-01-21] MEDS: DAPAGLIFLOZIN PROPANEDIOL 10 MG TABLET PO SCH (13:37)
[2025-01-21] MEDS: RANOLAZINE 500 MG TAB.ER.12H PO SCH (13:38)
--- NOTE | 2025-01-21 14:31 | P.PN ---
Subjective Progress Note Date: 01/21/25 This is an 84-year-old male patient of Dr. Brandon with past medical history of hypertension, hyperlipidemia, coronary artery disease status post balloon angioplasty in 1992, diabetes mellitus type 2, mild aortic stenosis, chronic kidney disease with baseline creatinine of 1.4. We have been asked to evaluate the patient for chest pain. Patient gives history that he had mid sternal chest pain for the past 3 to 4 months. He does not have any pain at this time. Pain does not worsen with deep breathing. Pain occurs when he walks from the house to the car or to the bathroom or to the basement. He was last seen in the office on 12/21/2024 and at that time it was noted he was having episodes of chest pain blood pressure was elevated as well and he was taking nitro glycerin with relief. Plan was for trial of Imdur. Patient was not a good candidate for cardiac catheterization due to his chronic kidney disease. Blood pressure 134/65, heart rate 64, pulse ox 97% on room air. -EKG: Sinus rhythm LVH. -Chest x-ray: Persistent right basilar opacity favoring scarring. New left basilar acute infiltrate and/or atelectasis. -Laboratory studies: Hemoglobin 1.5. BUN 52 creatinine 1.97. Troponin negative x 1. -Home cardiac medications: Amlodipine 5 mg twice daily, aspirin 81 mg daily, atorvastatin 80 mg daily, Lasix 40 mg twice daily, hydralazine 25 mg 3 times daily, Imdur 30 mg daily, losartan hydrochlorothiazide 1 tablet daily, omega-3. -Lexiscan Cardiolite stress test performed in the office on 03/10/2024 revealed nonspecific stress EKG portion secondary to baseline EKG abnormalities. P redominantly fixed inferior perfusion defect consistent with diaphragmatic attenuation artifact however additional inferior lateral reversibility consistent with ischemia. Left ventricular EF of 55%. Echocardiogram performed in the office on 03/10/2024 revealed EF of 50 to 55%, small hypokinetic area in the inferior wall at the base. Grade 1 diastolic dysfunction. Mild left ventricular hypertrophy. Mild aortic stenosis. Mild mitral regurgitation. Mild to moderate mitral stenosis. Mild tricuspid regurgitation. PASP 38 mmHg. Progress note On today's visit he denies having any symptoms of chest pain chest pressure shortness of breath. Denies any lightheadedness or dizziness. He is hem odynamically stable. Physical examination: Gen: This is an 84-year-old male in no acute distress VS: reviewed HEENT: Head is atraumatic, normocephalic. Pupils equal, round. Sclerae is anicteric. NECK: Supple. No JVD. LUNGS: Clear to auscultation. No wheezes or rhonchi. No intercostal retractions . HEART: Regular rate and rhythm. No murmur. ABDOMEN: Soft No tenderness. EXTREMITIES: No pedal edema. No calf tenderness. NEUROLOGICAL: Patient is awake, alert and oriented x3. Assessment: Exertional chest pain, possible angina Abnormal Lexiscan stress test 02/2024 History of coronary artery disease with previous balloon angioplasty diabetes mellitus type 2 Mild aortic stenosis Chronic kidney disease Hypertension Hyperlipidemia His echocardiogram shows an EF of 50 to 55%, mild aortic stenosis, No obvious regional wall motion abnormality. Plan: Aspirin 81 mg, Lipitor Coreg 3.125 mg twice daily, Farxiga 10 mg daily, Lasix 20 mg daily, hydralazine 50 mg daily, Imdur 30 mg daily, losartan 50 mg twice daily. Ranexa 500 mg twice daily At this time he is optimized from cardiovascular standpoint Cardiology team will sign off. Recommend outpatient follow-up with primary wheat inspector Complete troponin x 3 Monitor kidney function Obtain 2-D echocardiogram and Doppler study to assess cardiac structure and function Further recommendations to follow based upon clinical course Thank you kindly for this consultation. Objective - Vital Signs Vital signs: Vital Signs Temp 98.5 F 01/21/25 14:15 Pulse 61 01/21/25 14:15 Resp 16 01/21/25 14:15 BP 103/39 01/21/25 14:15 Pulse Ox 96 01/21/25 14:15 FiO2 Intake & Output 01/20/25 01/21/25 01/21/25 18:59 06:59 18:59 Weight 102.058 kg Other: Voiding Method Toilet Toilet Toilet # Voids 1 3 2 - Labs CBC & Chem 7: 01/20/25 09:38 01/21/25 03:05 Labs: Abnormal Lab Results - Last 24 Hours (Table) 01/20/25 01/21/25 01/21/25 Range/Units 20:13 03:05 05:22 BUN 48.5 H (9.0-27.0) mg/dL Creatinine 1.8 H (0.6-1.5) mg/dL Est GFR (CKD-EPI) 37 L (>=60) BUN/Creatinine Ratio 26.94 H (12.00-20.00) Ratio POC Glucose (mg/dL) 149 H 121 H (70-110) mg/dL
[2025-01-21 15:51] LABS: NT-Pro-B-Type Natriuretic Pept 1102 pg/mL (0-450)
[2025-01-21 17:06] LABS: Glucose,Whole Blood 111 mg/dL (70-110)
[2025-01-21] MEDS: carvediloL 3.125 MG TAB PO SCH (17:40)
[2025-01-21 17:45] LABS: LDL Cholesterol,Calculated 29.7 mg/dL (0.0-131.0)
[2025-01-21 19:49] LABS: Glucose,Whole Blood 206 mg/dL (70-110)
[2025-01-21] MEDS: LOSARTAN 50 MG TAB PO SCH (20:35)
[2025-01-22 01:43] VITALS: RESP 18; TEMP 98.3
[2025-01-22 05:24] LABS: Glucose,Whole Blood 105 mg/dL (70-110)
[2025-01-22 07:04] VITALS: BP 113/53; PULSE 76
[2025-01-22] MEDS: ENOXAPARIN 40 MG/0.4 ML SYRINGE SQ SCH (07:59)
--- NOTE | 2025-01-22 08:52 | P.DS ---
Providers Date of admission: 01/20/25 10:44 Expected date of discharge: 01/22/25 Attending physician: Gilberto Herrera MD Primary care physician: Tatiana [facility] Course: 84 year old with HTN, HLD, DM, CKD, CAD with balloon angioplasty in 1992 presents to the ED for chest pain. Chest pain intermittent over the past 4 months. Pain worse with exertion (walking to the bathroom). Pain improved with Nitro SL. He denies any headache, LE edema, N/V, fever or chills, cough, shortness of breath, palpitations, dizziness, changes in urination or bowel habits. No changes in appetite or weight. No numbness/weakness/tinging of the e xtremities. In the ED he underwent extensive evaluation. BP 116/57, HR 74, RR 20, T 97.6F, 96% on RA. CBC, Coag panel, CMP significant for RBC 3.65, Hg 11.5, Hct 35.7, BUN 52, Cr 1.97, glu 149. Trop < 0.012 x 3. Mag 1.9. CXR right basilar opacity favoring scarring, left basilar infiltrate or atelectasis. EKG sinus arrhythmia with LVH. Patient was admitted for chest pain, r/o ACS, Cardiology consultation. Cardiology consulted, Hydralazine increased, Echo ordered which showed EF 50-55% with mild . 01/21 Patient was seen and examined. Upset that he was woken up multiple times last night. He does report chest pain ambulating to the bathroom. BMP BUN 48.5, Cr 1.8, glu 121. 01/22 Patient was seen and examined. Ambulating the room without any chest pain. Cardiology cleared the patient for discharge yesterday. No new labs done today. Discharge Plan: New Prescriptions: Coreg 3.125 mg PO BID, Farxiga 10 mg PO QD, Hydralazine 50 mg PO TID, Losartan 50 mg PO BID, Lasix 20 mg PO QD, Ranexa 500 mg PO BID. Stop: Losartan 25 mg PO QD, HCTZ 25 mg PO QD, Lasix 40 mg PO BID, Hydralazine 25 mg PO TID. Follow up with PCP within 1-2 days of discharge and Dr. Brandon within 1 week of discharge. General: non toxic, no distress, appears at stated age Derm: warm, dry Head: atraumatic, normocephalic, symmetric Mouth: no lip lesion, mucus membranes moist Cardiovascular: S1S2 reg, systolic murmur Lungs: Clear to auscultation bilaterally, no rales , no accessory muscle use Ext: no gross muscle atrophy, no edema, no contractures Neuro: no focal neuro deficits Psych: Alert and oriented. Discharge Diagnosis: Stable angina with CAD Diabetes mellitus Hypertension Dyslipidemia CKD stage IIIb This complex discharge took 35 minutes to complete. Patient Condition at Discharge: Stable Plan - Discharge Summary Discharge Rx Participant: No New Discharge Prescriptions: New carvediloL [Coreg] 3.125 mg PO BID-W/MEALS #60 tab Dapagliflozin Propanediol [Farxiga] 10 mg PO DAILY #30 tab hydrALAZINE HCL [Apresoline] 50 mg PO TID #180 tab Losartan [Cozaar] 50 mg PO BID #60 tab Furosemide [Lasix] 20 mg PO DAILY #30 tab Ranolazine [Ranexa] 500 mg PO Q12HR #60 tab Continue Aspirin 81 mg PO DAILY Vit C/E/Zn/Coppr/Lutein/Zeaxan [Preservision Areds 2 Softgel] 1 cap PO BID Atorvastatin [Lipitor] 80 mg PO DAILY Cholecalciferol (Vitamin D3) [Vitamin D3 (3000 Iu)] 75 mcg PO DAILY Glimepiride [Amaryl] 1 mg PO BID Isosorbide Mononitrate ER [Imdur] 30 mg PO DAILY amLODIPine [Norvasc] 5 mg PO BID #60 tab [place]-3/Dha/Epa/Fish Oil [Fish Oil 1,000 mg Softgel] 1 cap PO DAILY Discontinued Losartan/Hydrochlorothiazide [Losartan-Hctz 100-25 mg Tab] 1 tab PO DAILY Furosemide [Lasix] 40 mg PO BID hydrALAZINE HCL [Apresoline] 25 mg PO TID Discharge Medication List Aspirin 81 mg PO DAILY 06/16/14 [History] Vit C/E/Zn/Coppr/Lutein/Zeaxan [Preservision Areds 2 Softgel] 1 cap PO BID 06/16/14 [History] Atorvastatin [Lipitor] 80 mg PO DAILY 03/10/19 [History] Cholecalciferol (Vitamin D3) [Vitamin D3 (3000 Iu)] 75 mcg PO DAILY 11/13/22 [History] amLODIPine [Norvasc] 5 mg PO BID #60 tab 11/21/22 [Rx] Glimepiride [Amaryl] 1 mg PO BID 01/20/25 [History] Isosorbide Mononitrate ER [Imdur] 30 mg PO DAILY 01/20/25 [History] [place]-3/Dha/Epa/Fish Oil [Fish Oil 1,000 mg Softgel] 1 cap PO DAILY 01/20/25 [History] Dapagliflozin Propanediol [Farxiga] 10 mg PO DAILY #30 tab 01/22/25 [Rx] Furosemide [Lasix] 20 mg PO DAILY #30 tab 01/22/25 [Rx] Losartan [Cozaar] 50 mg PO BID #60 tab 01/22/25 [Rx] Ranolazine [Ranexa] 500 mg PO Q12HR #60 tab 01/22/25 [Rx] carvediloL [Coreg] 3.125 mg PO BID-W/MEALS #60 tab 01/22/25 [Rx] hydrALAZINE HCL [Apresoline] 50 mg PO TID #180 tab 01/22/25 [Rx] Follow up Appointment(s)/Referral(s): Jeremias Brandon DO [STAFF PHYSICIAN] - 1 Week Tatiana Burrows MD [Primary Care Provider] - 1-2 days Activity/Diet/Wound Care/Special Instructions: Diet: Cardiac Discharge Disposition: HOME SELF-CARE
[2025-01-22 11:23] LABS: BUN/Creat Ratio 21.77 Ratio (12.00-20.00); Blood Urea Nitrogen 47.9 mg/dL (9.0-27.0); Chloride 106 mmol/L (96-109); Glucose 119 mg/dL (70-110); Potassium 4.2 mmol/L (3.5-5.5); Sodium 140 mmol/L (135-145)
== END 2025-01-22 10:58 | disposition home or self-care (01) ==
LOC: EC 09:07 → SUPCPDRO 09:07 → 6NMEDSUR 10:44
PROVIDERS: ADMIT Internal Medicine; ATTEND Internal Medicine
DX: I25.118 Atherosclerotic heart disease of native coronary artery with other forms of angina pectoris (principal); I12.9 Hypertensive chronic kidney disease with stage 1 through stage 4 chronic kidney disease, or unspecified chronic kidney disease; N18.32 Chronic kidney disease, stage 3b; E11.22 Type 2 diabetes mellitus with diabetic chronic kidney disease; I08.3 Combined rheumatic disorders of mitral, aortic and tricuspid valves; E78.5 Hyperlipidemia, unspecified; R94.39 Abnormal result of other cardiovascular function study; Z98.61 Coronary angioplasty status; Z79.82 Long term (current) use of aspirin; Z79.84 Long term (current) use of oral hypoglycemic drugs; Z79.899 Other long term (current) drug therapy; Z88.1 Allergy status to other antibiotic agents; Z88.5 Allergy status to narcotic agent; Z88.0 Allergy status to penicillin; Z88.2 Allergy status to sulfonamides; Z87.891 Personal history of nicotine dependence
CPT/HCPCS: 96372; 99285; 36415; 93005; 93306; 83880; 80061; 80053; 80048 ×2; 84443; 83735; 84484; 85025; 85610; 85730; 83036; 71046; G0378 ×3; J1650; Q9957

== ENCOUNTER → 2025-01-31 | Outpatient (CLI) | payer MEDICARE ==
--- NOTE | 2025-01-31 13:26 | US ---
EXAMINATION TYPE: US kidneys/renal and bladder DATE OF EXAM: 01/31/2025 COMPARISON: Multiple, most recent = 01/31/2025 CLINICAL INDICATION: Male, 84 years old with history of N18.31 CKD; Patient denies any other signs, s ymptoms, or relevant history TECHNIQUE: Grayscale imaging of the bilateral kidneys and urinary bladder: FINDINGS: EXAM MEASUREMENTS: Right Kidney: 9.9 x 6.1 x 5.6 cm Left Kidney: 11.1 x 7.8 x 4.8 cm Post Void Residual Volume: NA mL Right Kidney: wnl, no evidence for hydronephrosis, mass or renal calculus. Left Kidney: wnl, no evidence for hydronephrosis, mass or renal calculus. Bladder: Bladder diverticula seen, ?stone within bladder diverticula versus prostate gland = 1.7 x 1. 1 x 1.7 cm Bilateral Jets seen: Yes Normal Post Void Residual: NA There is no evidence for hydronephrosis at this point in time. No nephrolithiasis is seen. IMPRESSION: Bladder diverticula with possible bladder stone present. Further evaluation of the urinary bladder wi th CT urogram may be of benefit. [facility], , 01/31/2025 1:24 PM
== END | disposition home or self-care (01) ==
LOC: RADUSWWP 12:43
PROVIDERS: ATTEND Internal Medicine Nephrology
DX: N32.3 Diverticulum of bladder (principal); N18.31 Chronic kidney disease, stage 3a
CPT/HCPCS: 76770

== ENCOUNTER 2025-06-10 08:32 | Inpatient (IN) | payer MEDICARE ==
--- NOTE | 2025-06-10 08:42 | ED ---
General Adult HPI - General Stated complaint: Chest Pain Time Seen by Provider: 06/10/25 08:34 Source: patient, EMS, RN notes reviewed Mode of arrival: EMS Limitations: no limitations - History of Present Illness Initial comments: Patient is an 84-year-old male present to the emergency department with concerns with chest discomfort. Onset of symptoms was yesterday. Discomfort improved with nitroglycerin yesterday and again around 3 in the morning. Discomfort now is rated 6/10. Discomfort feels like pressure. Mild associated dyspnea. No nausea or diaphoresis. Patient does have history of previous heart attack however is unclear if the symptoms feel similar. - Related Data Home Medications Medication Instructions Recorded Confirmed Aspirin 81 mg PO DAILY 06/16/14 01/20/25 Vit C/E/Zn/Coppr/Lutein/Zeaxan 1 cap PO BID 06/16/14 01/20/25 [Preservision Areds 2 Softgel] Atorvastatin [Lipitor] 80 mg PO DAILY 03/10/19 01/20/25 Cholecalciferol (Vitamin D3) 75 mcg PO DAILY 11/13/22 01/20/25 [Vitamin D3 (3000 Iu)] Glimepiride [Amaryl] 1 mg PO BID 01/20/25 01/20/25 Isosorbide Mononitrate ER [Imdur] 30 mg PO DAILY 01/20/25 01/20/25 [place]-3/Dha/Epa/Fish Oil [Fish Oil 1 cap PO DAILY 01/20/25 01/20/25 1,000 mg Softgel] Previous Rx's Medication Instructions Recorded amLODIPine [Norvasc] 5 mg PO BID #60 tab 11/21/22 Dapagliflozin Propanediol [Farxiga] 10 mg PO DAILY #30 tab 01/22/25 Furosemide [Lasix] 20 mg PO DAILY #30 tab 01/22/25 Losartan [Cozaar] 50 mg PO BID #60 tab 01/22/25 Ranolazine [Ranexa] 500 mg PO Q12HR #60 tab 01/22/25 carvediloL [Coreg] 3.125 mg PO BID-W/MEALS #60 tab 01/22/25 hydrALAZINE HCL [Apresoline] 50 mg PO TID #180 tab 01/22/25 Allergies Allergy/AdvReac Type Severity Reaction Status Date / Time ciprofloxacin [From Cipro] Allergy Rash/Hives Verified 06/10/25 08:52 hydrocodone bitartrate Allergy Itching Verified 06/10/25 08:52 [From Vicodin] Penicillins Allergy Rash/Hives Verified 06/10/25 08:52 Sulfa (Sulfonamide Allergy Rash/Hives Verified 06/10/25 08:52 Antibiotics) sulfamethoxazole Allergy Rash/Hives Verified 06/10/25 08:52 [From Bactrim] trimethoprim [From Bactrim] Allergy Rash/Hives Verified 06/10/25 08:52 Review of Systems ROS Statement: Those systems with pertinent positive or pertinent negative responses have been documented in the HPI. ROS Other: All systems not noted in ROS Statement are negative. Constitutional: Denies: fever Eyes: Denies: eye pain Respiratory: Reports: dyspnea Cardiovascular: Reports: as per HPI, chest pain Gastrointestinal: Denies: abdominal pain Musculoskeletal: Denies: back pain Past Medical History Past Medical History: Diabetes Mellitus, Eye Disorder, Hyperlipidemia, Hypertension, Myocardial Infarction (DC), Osteoarthritis (OA), Prostate Disorder, Renal Disease Additional Past Medical History / Comment(s): Macular degeneration. Blood in stool. Catheter after prostate surgery for quite some time, 7-8 yrs ago. Chronic Kidney disease r/t Neprosclerosis. Last Myocardial Infarction Date:: 1991 History of Any Multi-Drug Resistant Organisms: None Reported Past Surgical History: Coronary Bypass/CABG, Joint Replacement, Orthopedic Surgery, Prostate Surgery Additional Past Surgical History / Comment(s): Nose surgery, knee surgery, right knee replacement. Femoral bypass/no stents. Past Anesthesia/Blood Transfusion Reactions: No Reported Reaction Past Psychological History: No Psychological Hx Reported Smoking Status: Former smoker Past Alcohol Use History: None Reported Past Drug Use History: None Reported - Past Family History Father Family Medical History: Cancer Mother Additional Family Medical History / Comment(s): Brain aneurysym. General Exam Limitations: no limitations General appearance: alert, in no apparent distress Head exam: Present: atraumatic Eye exam: Present: normal appearance Neck exam: Present: normal inspection Respiratory exam: Present: normal lung sounds bilaterally. Absent: chest wall tenderness Cardiovascular Exam: Present: regular rate, normal rhythm Expanded Peripheral pulses: 2+: Radial (R), Radial (L), Posterior Tibialis (R), Posterior Tibialis (L) GI/Abdominal exam: Present: soft. Absent: tenderness Extremities exam: Present: normal inspection. Absent: pedal edema, calf tenderness Neurological exam: Present: alert Psychiatric exam: Present: normal affect, normal mood Skin exam: Present: normal color Course Vital Signs 06/10/25 06/10/25 06/10/25 08:40 08:53 09:12 Temperature 98.7 F Pulse Rate 90 91 Pulse Rate [ 84 Credit Operations Specialist ] Respiratory 20 18 Rate Blood Pressure 115/68 113/68 O2 Sat by Pulse 87 L 92 L Oximetry 06/10/25 09:56 Temperature Pulse Rate 92 Pulse Rate [ Credit Operations Specialist ] Respiratory 18 Rate Blood Pressure 109/60 O2 Sat by Pulse 87 L Oximetry EKG Findings - EKG Results: EKG: interpreted by ERMD (Left bundle branch block with a rate of 86. Left axis. First AV block with SD of 216. Nonspecific ST-T.), sinus rhythm Medical Decision Making - Medical Decision Making Repeat EKG shows sinus rhythm with a rate of 90. First-degree AV block. Left axis. Left bundle branch block. Nonspecific ST-T. Was pt. sent in by a medical professional or institution (, PA, DRY CLEANING SUPERVISOR, urgent care, hospital, or group home...) When possible be specific @ -No Did you speak to anyone other than the patient for history (EMS, parent, family, police, friend...)? What history was obtained from this source @ -No Did you review nursing and triage notes (agree or disagree)? Why? @ -I reviewed and agree with nursing and triage notes Were old charts reviewed (outside hosp., previous admission, EMS record, old EKG, old radiological studies, urgent care reports/EKG's, group home records)? Report findings @ -Previous EKG reviewed dated 01/20/2025 with no evidence of bundle branch block Differential Diagnosis (chest pain, altered mental status, abdominal pain women, abdominal pain men, vaginal bleeding, weakness, fever, dyspnea, syncope, headache, dizziness, GI bleed, back pain, seizure, CVA, palpatations, mental health, musculoskeletal)? @ -Not applicable EKG interpreted by me (3pts min.). @ -As above X-rays interpreted by me (1pt min.). @ -Chest x-ray shows pulmonary edema/CHF CT interpreted by me (1pt min.). @ -None done U/S interpreted by me (1pt. min.). @ -None done What testing was considered but not performed or refused? (CT, X-rays, U/S, labs)? Why? @ -None What meds were considered but not given or refused? Why? @ -None Did you discuss the management of the patient with other professionals (professionals i.e. Dr., PA, DRY CLEANING SUPERVISOR, lab, RT, psych nurse, social media strategist, vice president risk management, teacher, payroll officer, case monitor)? Give summary @ -Sound physician, Dr. Petty who will admit covering Dr. kirby. He is aware of D-dimer and limitations with renal function. Cardiology, Dr. Gray who will consult. He agrees with heparin and request metoprolol and Lipitor Was smoking cessati who will admit covering discussed for >3mins.? @ -No Was critical care preformed (if so, how long)? @ -33 minutes critical care time Were there social determinants of health that impacted care today? How? (Homelessness, low income, unemployed, alcoholism, drug addiction, transportation, low edu. Level, literacy, decrease access to med. care, long term, rehab)? @ -No Was there de-escalation of care discussed even if they declined (Discuss DNR or withdrawal of care, Hospice)? DNR status @ -No What co-morbidities impacted this encounter? (DM, HTN, Smoking, COPD, CAD, Ca ncer, CVA, ARF, Chemo, Hep., AIDS, mental health diagnosis, sleep apnea, morbid obesity)? @ -CAD Was patient admitted / discharged? Hospital course, mention meds given and route, prescriptions, significant lab abnormalities, going to OR and other pertinent info. @ -Patient presents with chest discomfort with new bundle branch block and elevated troponin. Patient will be admitted with heparinization. Cardiology consulted. Admission orders written. On reevaluation patient states discomfort has increased and has associated nausea. Medications provided. Cardiology updated. Undiagnosed new problem with uncertain prognosis? @ -No Drug Therapy requiring intensive monitoring for toxicity (Heparin, Nitro, Insulin, Cardizem)? @ -Heparin Were any procedures done? @ -No Diagnosis/symptom? @ -Non-ST elevation myocardial infarction, pulmonary edema Acute, or Chronic, or Acute on Chronic? @ -Acute, acute Uncomplicated (without systemic symptoms) or Complicated (systemic symptoms)? @ -Default Side effects of treatment? @ -No Exacerbation, Progression, or Severe Exacerbation? @ -No Poses a threat to life or bodily function? How? (Chest pain, [place], DC, pneumonia, PE, COPD, DKA, ARF, appy, cholecystitis, CVA, Diverticulitis, Homicidal, Suicidal, threat to staff... and all critical care pts) @ -Threat to cardiac function - Lab Data Result diagrams: 06/10/25 09:00 06/10/25 09:00 Lab Results 06/10/25 06/10/25 06/10/25 Range/Units 09:00 09:00 09:00 WBC 13.60 H (4.50-10.00) 10*3/uL RBC 3.52 L (4.40-5.60) 10*6/uL Hgb 11.4 L (13.0-17.0) g/dL Hct 33.6 L (39.6-50.0) % MCV 95.5 (80.0-97.0) fL MCH 32.4 H (27.0-32.0) pg MCHC 33.9 (32.0-37.0) g/dL Plt Count 203 (140-440) 10*3/uL MPV 10.1 (9.5-12.2) fL Immature Gran % (Auto) 0.3 % Neutrophils % 87.1 % Lymphocytes % 6.3 % Monocytes % 5.9 % Eosinophils % 0.1 % Basophils % 0.3 % Immature Gran # 0.04 (0.00-0.04) 10*3/uL Neutrophils # 11.85 H (1.80-7.70) 10*3/uL Lymphocytes # 0.85 L (0.90-5.00) 10*3/uL Monocytes # 0.80 (0.20-1.00) 10*3/uL Eosinophils # 0.02 L (0.04-0.35) 10*3/uL Basophils # 0.04 (0.00-0.10) 10*3/uL Sodium 134 L (137-145) mmol/L Potassium 4.2 (3.5-5.1) mmol/L Chloride 102 (98-107) mmol/L Carbon Dioxide 21 L (22-30) mmol/L Anion Gap 11 mmol/L BUN 55 H (9-20) mg/dL Creatinine 2.26 H (0.66-1.25) mg/dL Est GFR (CKD-EPI)AfAm 30 (>60 ml/min/1.73 sqM) Est GFR (CKD-EPI)NonAf 26 (>60 ml/min/1.73 sqM) Glucose 174 H (74-99) mg/dL Calcium 8.8 (8.4-10.2) mg/dL Magnesium 1.7 (1.6-2.3) mg/dL Total Bilirubin 0.9 (0.2-1.3) mg/dL AST 26 (17-59) U/L ALT 18 (4-49) U/L Alkaline Phosphatase 102 (38-126) U/L Troponin I 2.460 H* (0.000-0.034) ng/mL NT-Pro-B Natriuret Pep 27899 pg/mL Total Protein 6.5 (6.3-8.2) g/dL Albumin 3.8 (3.5-5.0) g/dL Critical Care Time Critical Care Time: Yes Disposition Clinical Impression: Acute non-ST elevation myocardial infarction (NSTEMI) Disposition: ADMITTED IP TO THIS HOSP Condition: Serious Is patient prescribed a controlled substance at d/c from ED?: No Referrals: Tatiana Burrows MD [Primary Care Provider] - 1-2 days Time of Disposition: 09:59
[2025-06-10] MEDS: ASPIRIN 81 MG PO STA (09:01)
[2025-06-10] MEDS: NITROGLYCERIN OINT 1 INCH/GM PACKET TOPICAL STA (09:07)
[2025-06-10] MEDS: NITROGLYCERIN SL TABS 0.4 MG TAB SUBLINGUAL STA ×2 (09:07→09:55)
[2025-06-10 09:17] LABS: Basophils # (A) 0.04 10*3/uL (0.00-0.10); Basophils % (A) 0.3 %; Eosinophils # (A) 0.02 10*3/uL (0.04-0.35); Eosinophils % (A) 0.1 %; HCT 33.6 % (39.6-50.0); HGB 11.4 g/dL (13.0-17.0); Lymphocytes # (A) 0.85 10*3/uL (0.90-5.00); Lymphocytes % (A) 6.3 %; MCH 32.4 pg (27.0-32.0); MCHC 33.9 g/dL (32.0-37.0); MCV 95.5 fL (80.0-97.0); Monocytes # (A) 0.80 10*3/uL (0.20-1.00); Monocytes % (A) 5.9 %; Neutrophils # (A) 11.85 10*3/uL (1.80-7.70); Neutrophils % (A) 87.1 %; Platelet Count 203 10*3/uL (140-440); RBC 3.52 10*6/uL (4.40-5.60); RDW 13.8 % (11.5-14.5); WBC 13.60 10*3/uL (4.50-10.00)
--- NOTE | 2025-06-10 09:19 | XR ---
EXAMINATION TYPE: XR chest 2V DATE OF EXAM: 06/10/2025 9:14 AM COMPARISON: 01/20/2025 CLINICAL INDICATION: Male, 84 years old with history of Chest Pain: Shortness of breath TECHNIQUE: XR chest 2V views of the chest are obtained. FINDINGS: Scattered senescent parenchymal changes noted. Hyperinflation compatible with COPD. Pulmonary venous congestion with scattered infiltrates and small effusions suggest congestive failure . Correlate with BMP. Infiltrates of other etiology not excluded. Heart size is stable. Mediastinal structures are stable and grossly unremarkable. No evidence for hilar prominence. Degenerative changes dorsal spine. IMPRESSION: 1. Pulmonary venous congestion with scattered infiltrates and small effusions suggest congestive fail ure. Correlate with BMP. Infiltrates of other etiology not excluded. [facility], , 06/10/2025 9:17 AM
[2025-06-10 09:40] LABS: INR 1.1 (<1.2); Partial Thromboplastin Time 20.2 sec (22.0-30.0); Prothrombin Time 11.6 sec (10.0-12.5)
[2025-06-10 09:41] LABS: ALT 18 U/L (4-49); AST 26 U/L (17-59); African American GFR (CKD) 30 (>60 ml/min/1.73 sqM); Albumin 3.8 g/dL (3.5-5.0); Alkaline Phosphatase 102 U/L (38-126); Anion Gap 11 mmol/L; Blood Urea Nitrogen 55 mg/dL (9-20); Calcium 8.8 mg/dL (8.4-10.2); Carbon Dioxide 21 mmol/L (22-30); Chloride 102 mmol/L (98-107); Glucose 174 mg/dL (74-99); Magnesium 1.7 mg/dL (1.6-2.3); Non-African American GFR(CKD) 26 (>60 ml/min/1.73 sqM); Potassium 4.2 mmol/L (3.5-5.1); Sodium 134 mmol/L (137-145); Total Protein 6.5 g/dL (6.3-8.2)
[2025-06-10 09:50] LABS: NT-Pro-B-Type Natriuretic Pept 12300 pg/mL
[2025-06-10] MEDS ORDERED: NITROGLYCERIN SL TABS 0.4 MG TAB SUBLINGUAL PRN ×2 (09:59→11:06)
[2025-06-10] MEDS: ONDANSETRON 4 MG/2 ML VIAL IVP STA (10:08)
[2025-06-10] MEDS: METOPROLOL TARTRATE 25 MG TAB PO STA (10:09)
[2025-06-10] MEDS: ATORVASTATIN 80 MG TAB PO STA ×2 (10:10→11:16)
[2025-06-10] MEDS: HEPARIN SODIUM 1,000 UN/ML (10ML VL) IV ONE (10:20)
[2025-06-10] MEDS: FUROSEMIDE 10 MG/ML 4 ML VIAL IV STA (10:20)
[2025-06-10] MEDS: HEPARIN SODIUM,PORCINE/D5W 25,000 UNIT in EMPTY BAG 1 BAG IV SCH (10:21)
[2025-06-10] MEDS ORDERED: ALPRAZolam 0.25 MG TAB PO PRN (11:06)
[2025-06-10] MEDS ORDERED: ALPRAZolam 0.5 MG TAB PO PRN (11:06)
[2025-06-10] MEDS: RANOLAZINE 500 MG TAB.ER.12H PO SCH (11:13)
[2025-06-10] MEDS: ASPIRIN 325 MG TAB PO STA (11:15)
[2025-06-10] MEDS ORDERED: DEXTROSE 50% SYRINGE 50 ML IVP PRN ×2 (11:18)
[2025-06-10] MEDS: NITROGLYCERIN-D5W PMX 50 MG in DEXTROSE/WATER 1 250ML.BAG IV SCH (11:18)
[2025-06-10] MEDS: SODIUM CHLORIDE 0.9% 1,000 ML IV SCH (11:18)
[2025-06-10] MEDS: INSULIN LISPRO (HumaLOG) 100 UNIT/ML 10 mL VL SQ SCH ×2 (11:30→21:31)
[2025-06-10] MEDS: IV FLUID CONTINUATION 1,000 ML IV ONE (11:55)
[2025-06-10] MEDS ORDERED: NITROGLYCERIN OINT 1 INCH/GM PACKET TOPICAL SCH (12:00)
--- NOTE | 2025-06-10 12:04 | P.CRDCN ---
History of Present Illness History of present illness: HISTORY OF PRESENT ILLNESS: This is a 84-year-old male with a past medical history significant for coronary artery disease with previous balloon angioplasty in 1982, diabetes, hyperlipide gracie, mild aortic stenosis, and chronic kidney disease. Patient follows in the office with Dr. Brandon. We have been asked to see the patient in consultation for non-STEMI. Patient examined at the bedside in the emergency room. Patient presented to hospital with a chief complaint of chest pain. He reports having chest pain yesterday in the middle of his chest. It is noted that the patient was admitted to the hospital in January 2025 with angina as well. The patient reports that he received nitro with relief of his chest pain. He currently denies any chest pain at the time of examination. DIAGNOSTICS: - EKG reveals sinus mechanism with IVCD and ST depression in lateral leads, new from prior EKG - Chest xray pulmonary venous congestion with scattered infiltrates and small effusions suggestive of congestive heart failure - Laboratory data: WBC 13.6. Hemoglobin 11.4. Platelet count 203. D-dimer 1.08. Sodium 134. Potassium 4.2. BUN 55. Creatinine 2.26. Troponin 2.460. proBNP 12,300. - Current home cardiac medications include Lasix 80 mg every 2 days 40 mg every 2 days, hydralazine 25 mg 3 times daily, carvedilol 3.125 mg twice daily, amlodipine 5 mg twice a day, Ranexa 500 mg every 12 hours Imdur 30 mg daily, Farxiga 10 mg daily, Lipitor 80 mg daily, aspirin 81 mg daily/. - Most recent echocardiogram obtained in January 2025 revealed ejection fraction 55%, trace to mild MR, mild aortic stenosis with peak gradient 17 mmHg, trace TR - Cardiac catheterization history: Unknown REVIEW OF SYSTEMS: At the time of my exam: CONSTITUTIONAL: Denies fever or chills. HEENT: Denies blurred vision, vision changes, or eye pain. Denies hemoptysis CARDIOVASCULAR: Denies chest pain. Denies orthopnea. Denies PND. Denies palpitations RESPIRATORY: Denies shortness of breath. GASTROINTESTINAL: Denies abdominal pain. Denies nausea or vomiting. HEMATOLOGIC: Denies bleeding disorders. GENITOURINARY: Denies any blood in urine. SKIN: Denies pruitis. Denies rash. PHYSICAL EXAM: VITAL SIGNS: Reviewed. GENERAL: Well-developed in no acute distress. HEENT: Head is normocephalic. Pupils are equal, round. Sclerae anicteric. Mucous membranes of the mouth are moist. Neck supple. No JVD or thyromegaly LUNGS: Respirations even and unlabored. Lungs essentially clear to auscultation bilaterally. HEART: Regular rate and rhythm. S1 and S2 heard. ABDOMEN: Soft. Nondistended. Nontender. EXTREMITIES: Normal range of motion. No clubbing or cyanosis. Peripheral pulses intact. No lower extremity edema NEUROLOGIC: Awake and alert. Oriented x 3. ASSESSMENT: Non-STEMI Mild leukocytosis Chronic kidney disease Acute on chronic heart failure with preserved EF, 55% Recent hospitalization for chest pain/angina, January 2025 Coronary artery disease with previous balloon angioplasty, 1992 Mild aortic stenosis Hypertension Hyperlipidemia Diabetes Obesity: BMI 32.3 PLAN: Obtain 2D echo to assess cardiac structure and function Continue IV heparin Discontinue Nitropaste. Begin IV nitro at 5mcg/min. Decrease aspirin to 81 mg daily Begin IV Lasix 40 mg every 12 hours Daily weights, accurate intake and output, monitoring of kidney function Hold amlodipine and hydralazine secondary to soft blood pressures this morning N.p.o. Begin precath hydration at 75 cc an hour with normal saline Patient to undergo cardiac catheterization today with Dr. Brandon Consult nephrology secondary to CKD and scheduled cardiac catheterization Further recommendations pending patient course Nurse practitioner note has been reviewed by physician. Signing provider agrees with the documented findings, assessment, and plan of care documented by DRYING MACHINE BACK TENDER as a scribe. Past Medical History Past Medical History: Diabetes Mellitus, Eye Disorder, Hyperlipidemia, Hyperte nsion, Myocardial Infarction ([place]), Osteoarthritis (OA), Prostate Disorder, Renal Disease Additional Past Medical History / Comment(s): Macular degeneration. Blood in stool. Catheter after prostate surgery for quite some time, 7-8 yrs ago. Chronic Kidney disease r/t Neprosclerosis. Last Myocardial Infarction Date:: 1991 History of Any Multi-Drug Resistant Organisms: None Reported Past Surgical History: Coronary Bypass/CABG, Joint Replacement, Orthopedic Surgery, Prostate Surgery Additional Past Surgical History / Comment(s): Nose surgery, knee surgery, right knee replacement. Femoral bypass/no stents. Past Anesthesia/Blood Transfusion Reactions: No Reported Reaction Past Psychological History: No Psychological Hx Reported Smoking Status: Former smoker Past Alcohol Use History: None Reported Past Drug Use History: None Reported - Past Family History Father Family Medical History: Cancer Mother Additional Family Medical History / Comment(s): Brain aneurysym. Medications and Allergies Home Medications Medication Instructions Recorded Confirmed Type Aspirin 81 mg PO DAILY 06/16/14 06/10/25 History Vit C/E/Zn/Coppr/Lutein/Zeaxan 1 cap PO BID 06/16/14 06/10/25 History [Preservision Areds 2 Softgel] Atorvastatin [Lipitor] 80 mg PO DAILY 03/10/19 06/10/25 History Cholecalciferol (Vitamin D3) 75 mcg PO DAILY 11/13/22 06/10/25 History [Vitamin D3 (3000 Iu)] amLODIPine [Norvasc] 5 mg PO BID #60 tab 11/21/22 06/10/25 Rx Glimepiride [Amaryl] 1 mg PO BID 01/20/25 06/10/25 History Isosorbide Mononitrate ER [Imdur] 30 mg PO DAILY 01/20/25 06/10/25 History Dorsey-3/Dha/Epa/Fish Oil [Fish Oil 1 cap PO DAILY 01/20/25 06/10/25 History 1,000 mg Softgel] Dapagliflozin Propanediol [Farxiga] 10 mg PO DAILY #30 tab 01/22/25 06/10/25 Rx Ranolazine [Ranexa] 500 mg PO Q12HR #60 tab 01/22/25 06/10/25 Rx carvediloL [Coreg] 3.125 mg PO BID-W/MEALS #60 tab 01/22/25 06/10/25 Rx Furosemide [Lasix] 40 mg PO Q2D 06/10/25 06/10/25 History Furosemide [Lasix] 80 mg PO Q2D 06/10/25 06/10/25 History hydrALAZINE HCL [Apresoline] 25 mg PO TID 06/10/25 06/10/25 History Allergies Allergy/AdvReac Type Severity Reaction Status Date / Time ciprofloxacin [From Cipro] Allergy Rash/Hives Verified 06/10/25 10:35 hydrocodone bitartrate Allergy Itching Verified 06/10/25 10:35 [From Vicodin] Penicillins Allergy Rash/Hives Verified 06/10/25 10:35 Sulfa (Sulfonamide Allergy Rash/Hives Verified 06/10/25 10:35 Antibiotics) sulfamethoxazole Allergy Rash/Hives Verified 06/10/25 10:35 [From Bactrim] trimethoprim [From Bactrim] Allergy Rash/Hives Verified 06/10/25 10:35 Physical Exam Vitals: Vital Signs Temp Pulse Pulse Resp BP Pulse Ox 06/10/25 11:12 73 20 107/61 92 L 06/10/25 10:45 81 18 94 L 06/10/25 10:11 86 18 104/67 90 L 06/10/25 09:56 92 18 109/60 87 L 06/10/25 09:12 91 18 113/68 92 L 06/10/25 08:53 84 06/10/25 08:40 98.7 F 90 20 115/68 87 L Intake and Output 06/09/25 06/10/25 06/10/25 22:59 06:59 14:59 Other: Weight 102.058 kg Results 06/10/25 09:00 06/10/25 09:00 Cardiac Enzymes 06/10/25 06/10/25 Range/Units 09:00 09:00 AST 26 (17-59) U/L Troponin I 2.460 H* (0.000-0.034) ng/mL Coagulation 06/10/25 Range/Units 09:00 PT 11.6 (10.0-12.5) sec APTT 20.2 L (22.0-30.0) sec CBC 06/10/25 Range/Units 09:00 WBC 13.60 H (4.50-10.00) 10*3/uL RBC 3.52 L (4.40-5.60) 10*6/uL Hgb 11.4 L (13.0-17.0) g/dL Hct 33.6 L (39.6-50.0) % Plt Count 203 (140-440) 10*3/uL Comprehensive Metabolic Panel 06/10/25 Range/Units 09:00 Sodium 134 L (137-145) mmol/L Potassium 4.2 (3.5-5.1) mmol/L Chloride 102 (98-107) mmol/L Carbon Dioxide 21 L (22-30) mmol/L BUN 55 H (9-20) mg/dL Creatinine 2.26 H (0.66-1.25) mg/dL Glucose 174 H (74-99) mg/dL Calcium 8.8 (8.4-10.2) mg/dL AST 26 (17-59) U/L ALT 18 (4-49) U/L Alkaline Phosphatase 102 (38-126) U/L Total Protein 6.5 (6.3-8.2) g/dL Albumin 3.8 (3.5-5.0) g/dL Current Medications Generic Name Dose Route Start Last Admin Trade Name Freq PRN Reason Stop Dose Admin Alprazolam 0.25 mg 06/10/25 11:06 Alprazolam 0.25 Mg Tab PO Q6HR PRN Mild Anxiety Alprazolam 0.5 mg 06/10/25 11:06 Alprazolam 0.5 Mg Tab PO Q6HR PRN Moderate Anxiety Amlodipine Besylate 5 mg 06/10/25 21:00 Amlodipine 5 Mg Tab PO BID [facility] Aspirin 81 mg 06/11/25 09:00 Aspirin 81 Mg PO DAILY [facility] Carvedilol 3.125 mg 06/10/25 11:00 Carvedilol 3.125 Mg Tab PO BID-W/MEALS [facility] Dapagliflozin 10 mg 06/11/25 09:00 Dapagliflozin Propanediol 10 Mg Tablet PO DAILY [facility] Dextrose/Water 25 ml 06/10/25 11:18 Dextrose 50% Syringe 50 Ml IVP PER PROTOCOL PRN Hypoglycemia Protocol Dextrose/Water 50 ml 06/10/25 11:18 Dextrose 50% Syringe 50 Ml IVP PER PROTOCOL PRN Hypoglycemia Protocol Furosemide 40 mg 06/10/25 13:00 Furosemide 10 Mg/Ml 4 Ml Vial IV Q12HR [facility] Heparin Sodium/Dextrose 25,000 250 mls @ 10 mls/hr 06/10/25 10:00 06/10/25 10:21 unit/ IV Solution IV 9.798 unit/kg/hr .Q24H [facility]OSSEL[facility] 10 mls/hr Administration Protocol 9.798 UNIT/KG/HR Nitroglycerin/Dextrose 50 mg/ 250 mls @ 1.5 mls/hr 06/10/25 11:15 06/10/25 11:18 IV Solution IV 5 mcg/min .Q24H JOSSELIN 1.5 mls/hr Administration Protocol 5 MCG/MIN Sodium Chloride 1,000 mls @ 75 mls/hr 06/10/25 11:15 06/10/25 11:18 Saline 0.9% IV 75 mls/hr .[id number] JOSSELIN Administration Heparin Sodium (Porcine) 10, 1,001 mls @ 999 mls/hr 06/11/25 07:00 000 unit/ Sodium Chloride IRRIGATION 06/11/25 23:00 ONCE PRN INTRA-OP Heparin Sodium (Porcine) 2,500 250.5 mls @ 250 mls/hr 06/11/25 07:00 unit/ Sodium Chloride IRRIGATION 06/11/25 23:00 ONCE PRN INTRA-OP Insulin Human Lispro 0 unit 06/10/25 12:30 06/10/25 11:30 Insulin Lispro (Humalog) 100 Unit/Ml 10 Ml Vl SQ Not Given ACHS [facility] Protocol Isosorbide Mononitrate 30 mg 06/11/25 09:00 Isosorbide Mononitrate Er 30 Mg Tab.Er.24h PO DAILY [facility] Nitroglycerin 0.4 mg 06/10/25 09:59 Nitroglycerin Sl Tabs 0.4 Mg Tab SUBLINGUAL Q5M PRN Chest Pain Nitroglycerin 0.4 mg 06/10/25 11:06 Nitroglycerin Sl Tabs 0.4 Mg Tab SUBLINGUAL Q5M PRN Chest Pain Non-Formulary Medication 1 cap 06/11/25 09:00 Dorsey-3/Dha/Epa/Fish Oil [Fish Oil 1,000 Mg Softgel] PO DAILY [facility] Ranolazine 500 mg 06/10/25 11:00 06/10/25 11:13 Ranolazine 500 Mg Tab.Er.12h PO 500 mg Q12HR [facility]OSSELIN Administration Intake and Output 06/09/25 06/10/25 06/10/25 22:59 06:59 14:59 Other: Weight 102.058 kg Patient Weight 06/11/25 06:59 Weight 102.058 kg 06/10/25 09:00 06/10/25 09:00
[2025-06-10 12:17] LABS: Glucose,Whole Blood 190 mg/dL (70-110)
[2025-06-10] MEDS: LIDOCAINE 1% INJ 10MG/ML (20 ML MDV) SQ ONE (12:36)
[2025-06-10] MEDS: VERAPAMIL SYRINGE (5 MG/10 ML) INTRAARTER ONE (12:37)
[2025-06-10] MEDS: HEPARIN SODIUM 1,000 UN/ML (10ML VL) IVP ONE (12:50)
[2025-06-10] MEDS: EPINEPHrine 10 ML SYRINGE (0.1 MG/ML) MISCELLANE ONE (12:55)
[2025-06-10] MEDS: IOPAMIDOL-370 100ML BTL INJ ONE (13:00)
[2025-06-10 13:05] LABS: ABG HCO3 21 mmol/L (21-25); ABG PCO2 60 mmHg (35-45); ABG PO2 88 mmHg (83-108); ABG TCO2 23 mmol/L (19-24); Allen Test Performed? Yes
[2025-06-10] MEDS ORDERED: MAG HYDROX/AL HYDROX/SIMETH 30 ML CUP PO PRN (13:12)
[2025-06-10] MEDS ORDERED: RX INFO: IV CONTRAST WAS GIVEN 1 EACH MISC MISCELLANE PRN (13:12)
[2025-06-10] MEDS ORDERED: ATROPINE SULFATE 0.1 MG/ML 10ML SYRINGE IV PRN (13:12)
[2025-06-10] MEDS ORDERED: ZOLPIDEM 5 MG TAB PO PRN (13:12)
[2025-06-10] MEDS: CLOPIDOGREL 75 MG TAB PO ONE (13:15)
[2025-06-10 13:24] LABS: ABG PH 7.16 (7.35-7.45)
[2025-06-10 13:26] LABS: Glucose,Whole Blood 198 mg/dL (70-110)
--- NOTE | 2025-06-10 13:26 | P.PRCINT ---
Percutaneous Coronary Int. - Percutaneous Coronary Intervention Percutaneous Coronary Intervention: PROCEDURES PERFORMED: Left heart catheterization, bilateral coronary angiography, ultrasound guided arterial access, PCI circumflex with 3.25 x 12 mm and 3.25 x 8 mm Xience drug-eluting stent, intravascular ultrasound circumflex INDICATION: Non-STEMI, cardiac arrest PROCEDURE: After the risks, benefits and alternatives of the above mentioned procedure explained in detail with the patient, informed consent was obtained. Patient was taken to the catheterization lab and prepped and draped in usual fashion. Upon transfer from the stretcher to the Watchmaking Teacher table patient became unresponsive and lost pulse with CPR performed for approximately 20 minutes. Patient had ROSC requiring intermittent epinephrine. Discussed case with daughter Kev who stated patient would not want aggressive measures however agreeable to heart catheterization however did not want further chest compressions performed. Ultrasound guidance was used to assess for arterial access. 1% lidocaine was used to anesthetize the right radial artery. A 6- Japanese sheath was placed in the right radial artery using modified Seldinger technique and ultrasound guidance. Left coronary angiography was performed with a 5-Japanese JL 3.5 catheter and right coronary angiography was performed with a 5-Japanese FR5 catheter in various views. A 5-Japanese FR5 catheter was inserted into the left ventricle and pressure measurements were obtained. The decision was made to perform PCI of the circumflex. A 6 Japanese CLS 4.0 guide was used to engage the left main. A 0.014 BMW wire was attempted however tortuous vessel and eventually a 0.014 whisper wire was advanced into the distal circumflex. Predilation was performed with a 2.5 mm balloon. Intravascular ultrasound showed diffuse calcification and reference vessel 3.25 mm. A 3.25 x 12 mm Xience drug-eluting stent was placed in the proximal circumflex with some difficulty around the tortuous segment. An additional 3.25 x 8 mm Xience drug- eluting stent was placed at the distal edge. There was a more distal lesion however difficulty advancing any equipment and given contrast threshold and this appeared to be more chronic decision made to treat this medically and appeared more in the 50 to 60% range. Final angiograms were performed. Preintervention there was 99% stenosis and ADAM II flow and postintervention there was less than 10% stenosis with ADAM-3 flow within the more distal 50% lesion. The right radial sheath was removed and a TR band was placed with hemostasis achieved. The patient remained intubated and sedated and on vasopressors/inotropes. Conscious Sedation: Patient was monitored under the direct supervision of myself for conscious sedation using Versed and fentanyl for a total duration of 33 minutes HEMODYNAMICS: Aorta: 81/62 LV: 74/10, LVEDP 20 SELECTIVE CORONARY ARTERIOGRAPHY: LEFT MAIN: The left main is a large caliber vessel which bifurcates into the LAD and circumflex. There is calcification however only 10% stenosis. LEFT ANTERIOR DESCENDING CORONARY ARTERY: LAD is a large caliber vessel which wraps around to the apex. There is mild 20 to 30% diffuse LAD stenosis and heavily calcified. There are [id number] collaterals to the RCA. LEFT CIRCUMFLEX CORONARY ARTERY: Left circumflex is a moderate caliber vessel with with a proximal to mid 99% stenosis followed by a more distal 50 to 60% stenosis. RIGHT CORONARY ARTERY: The right coronary artery is a large caliber vessel which gives off a PDA and PLV branch and is the dominant vessel. There is mid RCA 100% stenosis FINAL IMPRESSION: 1. CAD as described above including 20 to 30% LAD, 99% circumflex, 100% RCA stenosis with [id number] collaterals 2. Status post PCI circumflex with 3.25 x 12 mm and 3.25 x 8 mm Xience drug- eluting stent 3. Elevated left sided filling pressures 4. Status postcardiac arrest 5. Cardiogenic shock on vasopressors PLAN: 1. Aggressive risk factor modification per most recent ACC/AHA guidelines. 2. Dual antiplatelets with aspirin and Plavix for 12 months 3. Vasopressors and inotropes as needed. Prognosis very guarded. Daughter not wanting aggressive measures performed and does not want any more CPR to be performed.
[2025-06-10] MEDS: EPINEPHrine 4 MG in DEXTROSE 5% IN WATER 250 ML IV SCH ×2 (13:35→21:53)
[2025-06-10] MEDS ORDERED: NALOXONE 0.4 MG/ML 1 ML VIAL IV PRN (13:41)
--- NOTE | 2025-06-10 13:56 | XR ---
EXAMINATION TYPE: XR chest 1V portable DATE OF EXAM: 06/10/2025 1:44 PM COMPARISON: None. CLINICAL INDICATION: Male, 84 years old with history of intubated and og insertion, FINDINGS: Endotracheal tube is approximately 6 cm from the angela. NG tube is seen coursing into the stomach. There is now subcutaneous emphysema along the left chest wall. No sizable pneumothorax identified wit h certainty. Correlate clinically. Progressive Scattered infiltrates are seen throughout both lung justice with pulmonary venous congesti on and small effusions. Correlate for congestive failure versus underlying pneumonia or infiltrate of uncertain etiology. Correlate with BNP. Stable appearance of the cardio-mediastinal structures at this time. Pleural effusion unchanged. IMPRESSION: 1. There is now subcutaneous emphysema along the left chest wall. No sizable pneumothorax identified with certainty. Correlate clinically. 2. Progressive Scattered infiltrates are seen throughout both lung justice with pulmonary venous conge stion and small effusions. Correlate for congestive failure versus underlying pneumonia or infiltrate of uncertain etiology. Correlate with BNP. [facility], , 06/10/2025 1:53 PM
--- NOTE | 2025-06-10 14:21 | P.HPIM ---
History of Present Illness H&P Date: 06/10/25 History of Presenting Illness: Patient is a very pleasant 80 the past medical history CAD with a past medical history of balloon angioplasty, aortic stenosis, hypertension, hyperlipidemia, vst-[id number] diabetes mellitus, chronic kidney disease stage IIIb, hernia, and BPH with previous TURP. He reports following Dr. Paige for his PCP and with Dr. Brandon, for cardiology. Patient presented to the emergency department with a chief complaint of chest pain and shortness of breath. Patient reports the symptoms have occurred off and on over the last month but reports yesterday became persistent and reoccurring. Patient reports taking nitro which initially improved his pain, but states soon after the pain returned. Patient reports taking 3 or 4 nitro yesterday and again 3 sublingual nitro tablets today but states pain was no longer improving and became severe and he felt a constant continuous pressure to his midsternal chest described as though an elephant was pounding on his chest. Patient denies having any headache, lightheadedness, dizziness, palpitations, cough or congestion, abdominal pain, nausea, vomiting, or experiencing any numbness/tingling/weakness in his extremities. He reports mild swelling in his lower extremities worsening over the past few months in which she has been taking "water pills" at home for management. Vital signs upon arrival show blood pressure 115/68, heart rate 98, respiratory rate 20, temp 98.7 F, and SpO2 of 87% on room air requiring placement on supplemental oxygen. At time of assessment patient on 6 L O2 with SpO2 of 92%. EKG completed showing sinus rhythm at 86 bpm with a left bundle branch block. Left bundle branch block appears to be a new finding when compared to EKG completed 01/20/2025. Chest x-ray completed showing pulmonary vascular congestion with scattered infiltrates and small effusions consistent with congestive heart failure. Labs completed and reviewed. CBC showing leukocytosis with WBC count of 13.60, normocytic anemia with hemoglobin of 11.4. Coagulation profile showing low PTT of 20.2 and an elevated D-dimer of 1.08. BMP showing sodium 134, bicarb 21, and acute kidney injury with BUN of 55, creatinine 2.26, and GFR of 26 with baseline creatinine appearing to be around 1.8. Blood glucose 174. Calcium 8.8. Magnesium 1.7. Liver profile unremarkable. Troponin was elevated at 2.460 and proBNP 12,300. Patient was started on low intensity heparin infusion for treatment of NSTEMI along with nitro infusion. At time of admission patient reports chest pressure remains, but significantly improved and currently rating 2 out of 10. He remains on 6 L O2 via nasal cannula, but speaking in full sentences and reports only mild discomfort. ED physician discussed with ota, patient being taken up to Welfare Administrator at this time. Review of systems: Pertinent positives and negatives as discussed in HPI, a complete review of systems was performed and all other systems are negative. Physical exam: Vital signs reviewed and stable. General: Nontoxic, no distress and appears stated age. Derm: Skin warm and dry, normal coloration for ethnicity. Head: Atraumatic, normocephalic and symmetric. Eyes: EOM's intact, no lid lag, and anicteric sclera Mouth: no lip lesions, mucus membranes moist Cardiovascular: regular rate and rhythm with normal S1S2, systolic murmur, positive posterior tibial pulses bilaterally, and cap refill < 2 seconds. Lungs: Respirations even, regular, and unlabored on 6 L O2. Lungs diminished, no rhonchi, no rales, no wheezing, and no accessory muscle usage. Speaking in full sentences without conversational dyspnea noted... Abdominal: soft distended, nontender to palpation, no guarding, no appreciable organomegaly Ext: ROM intact. No gross muscle atrophy, scant to 1+ BLE edema, no contractures Neuro: Speech clear, face symmetrical and CN II-XII grossly intact with no noted focal neuro deficits Psych: Alert and oriented to person, place, time, and situation. Appropriate and pleasant affect. Assessment and Plan of Care: NSTEMI New onset left bundle branch block CAD with history of previous balloon angioplasty Acute CHF exacerbation, suspect diastolic based upon previous echocardiogram completed 01/20/25 Aortic stenosis Hypertension Hyperlipidemia -Cardiology consulted, taking patient for heart catheterization at this time -Continue low intensity heparin infusion with close monitoring of PTT every 6 hours for goal therapeutic range of 45 to 79 seconds. -Continue nitro infusion at 5 mcg/min -Telemetry monitoring -Trend troponins -Lasix 40 mg IVP every 12 hours with close monitoring of I's and O's -Aspirin 81 mg daily, atorvastatin 80 mg daily, amlodipine 5 mg twice daily, carvedilol 3.125 mg twice daily, Farxiga 10 mg daily, isosorbide mononitrate 30 mg daily, and Ranexa 500 mg every 12 hours. -Lipid profile and hemoglobin A1c with a.m. labs. -Echocardiogram to be completed. EFRAÍN on CKD stage IIIb Likely secondary to fluid volume overload resulting from CHF exacerbation. Non-Insulin dependent diabetes mellitus Hold glimepiride and patient placed on glycemic protocol with Humalog sliding scale. Data and imaging reviewed: As stated above in HPI The patient is admitted with an anticipated greater than 2 midnight stay for evaluation of NSTEMI and acute congestive heart failure exacerbation CODE STATUS: Full code DVT prophylaxis: Heparin infusion Discussed with: Patient, RN, ED physician, and ota, Dr. Gray Anticipated discharge date: Pending clinical course Anticipated discharge place: Pending clinical course Patient was seen independently by Nurse Practitioner. This document was prepared using [employer] dictation software. Please allow for errors in senior systems engineer while rare they do occur. Vinay Bronson NP rendered care for this patient independently, reviewed the findings and plan as documented in the note above and agree with plan. I did not physically speak with or examine the patient on this date. Past Medical History Past Medical History: Diabetes Mellitus, Eye Disorder, Hyperlipidemia, Hypertension, Myocardial Infarction ([place]), Osteoarthritis (OA), Prostate Disorder, Renal Disease Additional Past Medical History / Comment(s): Macular degeneration. Blood in stool. Catheter after prostate surgery for quite some time, 7-8 yrs ago. Chronic Kidney disease r/t Neprosclerosis. Last Myocardial Infarction Date:: 1991 History of Any Multi-Drug Resistant Organisms: None Reported Past Surgical History: Coronary Bypass/CABG, Joint Replacement, Orthopedic Surgery, Prostate Surgery Additional Past Surgical History / Comment(s): Nose surgery, knee surgery, right knee replacement. Femoral bypass/no stents. Past Anesthesia/Blood Transfusion Reactions: No Reported Reaction Past Psychological History: No Psychological Hx Reported Smoking Status: Former smoker Past Alcohol Use History: None Reported Past Drug Use History: None Reported - Past Family History Father Family Medical History: Cancer Mother Additional Family Medical History / Comment(s): Brain aneurysym. Medications and Allergies Home Medications Medication Instructions Recorded Confirmed Type Aspirin 81 mg PO DAILY 06/16/14 06/10/25 History Vit C/E/Zn/Coppr/Lutein/Zeaxan 1 cap PO BID 06/16/14 06/10/25 History [Preservision Areds 2 Softgel] Atorvastatin [Lipitor] 80 mg PO DAILY 03/10/19 06/10/25 History Cholecalciferol (Vitamin D3) 75 mcg PO DAILY 11/13/22 06/10/25 History [Vitamin D3 (3000 Iu)] amLODIPine [Norvasc] 5 mg PO BID #60 tab 11/21/22 06/10/25 Rx Glimepiride [Amaryl] 1 mg PO BID 01/20/25 06/10/25 History Isosorbide Mononitrate ER [Imdur] 30 mg PO DAILY 01/20/25 06/10/25 History Rembert-3/Dha/Epa/Fish Oil [Fish Oil 1 cap PO DAILY 01/20/25 06/10/25 History 1,000 mg Softgel] Dapagliflozin Propanediol [Farxiga] 10 mg PO DAILY #30 tab 01/22/25 06/10/25 Rx Ranolazine [Ranexa] 500 mg PO Q12HR #60 tab 01/22/25 06/10/25 Rx carvediloL [Coreg] 3.125 mg PO BID-W/MEALS #60 tab 01/22/25 06/10/25 Rx Furosemide [Lasix] 40 mg PO Q2D 06/10/25 06/10/25 History Furosemide [Lasix] 80 mg PO Q2D 06/10/25 06/10/25 History hydrALAZINE HCL [Apresoline] 25 mg PO TID 06/10/25 06/10/25 History Allergies Allergy/AdvReac Type Severity Reaction Status Date / Time ciprofloxacin [From Cipro] Allergy Rash/Hives Verified 06/10/25 10:35 hydrocodone bitartrate Allergy Itching Verified 06/10/25 10:35 [From Vicodin] Penicillins Allergy Rash/Hives Verified 06/10/25 10:35 Sulfa (Sulfonamide Allergy Rash/Hives Verified 06/10/25 10:35 Antibiotics) sulfamethoxazole Allergy Rash/Hives Verified 06/10/25 10:35 [From Bactrim] trimethoprim [From Bactrim] Allergy Rash/Hives Verified 06/10/25 10:35 Physical Exam Vitals: Vital Signs Temp Pulse Pulse Resp BP Pulse Ox 06/10/25 11:12 73 20 107/61 92 L 06/10/25 10:45 81 18 94 L 06/10/25 10:11 86 18 104/67 90 L 06/10/25 09:56 92 18 109/60 87 L 06/10/25 09:12 91 18 113/68 92 L 06/10/25 08:53 84 06/10/25 08:40 98.7 F 90 20 115/68 87 L Intake and Output 06/09/25 06/10/25 06/10/25 22:59 06:59 14:59 Other: Weight 102.058 kg Results CBC & Chem 7: 06/10/25 09:00 06/10/25 09:00 Labs: Abnormal Lab Results - Last 24 Hours (Table) 06/10/25 06/10/25 06/10/25 Range/Units 09:00 09:00 09:00 WBC 13.60 H (4.50-10.00) 10*3/uL RBC 3.52 L (4.40-5.60) 10*6/uL Hgb 11.4 L (13.0-17.0) g/dL Hct 33.6 L (39.6-50.0) % MCH 32.4 H (27.0-32.0) pg Neutrophils # 11.85 H (1.80-7.70) 10*3/uL Lymphocytes # 0.85 L (0.90-5.00) 10*3/uL Eosinophils # 0.02 L (0.04-0.35) 10*3/uL APTT 20.2 L (22.0-30.0) sec D-Dimer 1.08 H (<0.60) mg/L FEU Sodium 134 L (137-145) mmol/L Carbon Dioxide 21 L (22-30) mmol/L BUN 55 H (9-20) mg/dL Creatinine 2.26 H (0.66-1.25) mg/dL Glucose 174 H (74-99) mg/dL Troponin I (0.000-0.034) ng/mL 06/10/25 Range/Units 09:00 WBC (4.50-10.00) 10*3/uL RBC (4.40-5.60) 10*6/uL Hgb (13.0-17.0) g/dL Hct (39.6-50.0) % MCH (27.0-32.0) pg Neutrophils # (1.80-7.70) 10*3/uL Lymphocytes # (0.90-5.00) 10*3/uL Eosinophils # (0.04-0.35) 10*3/uL APTT (22.0-30.0) sec D-Dimer (<0.60) mg/L FEU Sodium (137-145) mmol/L Carbon Dioxide (22-30) mmol/L BUN (9-20) mg/dL Creatinine (0.66-1.25) mg/dL Glucose (74-99) mg/dL Troponin I 2.460 H* (0.000-0.034) ng/mL
[2025-06-10] MEDS: SODIUM BICARB 8.4% 50 ML SYR (1 MEQ/ML) IV STA (14:36)
[2025-06-10] MEDS: FUROSEMIDE 10 MG/ML 4 ML VIAL IV SCH (14:40)
[2025-06-10] MEDS: ALTEPLASE 2 MG VIAL (CATHFLO) IV STA (14:40)
[2025-06-10] MEDS: CISATRACURIUM 2 MG/ML 5 ML VIAL IV ONE (15:17)
[2025-06-10] MEDS: CISATRACURIUM 200 MG in SODIUM CHLORIDE 0.9% 180 ML IV SCH (15:30)
--- NOTE | 2025-06-10 15:56 | XR ---
EXAMINATION TYPE: XR chest 1V portable DATE OF EXAM: 06/10/2025 3:48 PM COMPARISON: Chest radiographs from CLINICAL INDICATION: Male, 84 years old with history of SOB; [facility] TECHNIQUE: XR chest 1V portable Frontal view of the chest. FINDINGS: Lungs/Pleura: Questionable new moderate sized left apical pneumothorax versus artifact. Overall, limi gabby portable study due to patient positioning. Patchy infiltrative opacities in bilateral lungs. No s izable pleural effusion. No right-sided pneumothorax. Enteric tube courses below the left hemidiaphra gm. Endotracheal tube terminates 4.8 cm above the angela. Heart/mediastinum: Stable cardiomegaly. Musculoskeletal: No acute osseous pathology. IMPRESSION: Questionable new moderate sized left apical pneumothorax versus artifact. Recommend repeat chest radi ograph for further characterization given limitations described above. [facility], , 06/10/2025 3:54 PM
[2025-06-10 18:03] LABS: Glucose,Whole Blood 217 mg/dL (70-110)
[2025-06-10 18:52] LABS: HCT 33.6 % (39.6-50.0); HGB 10.7 g/dL (13.0-17.0); MCH 32.3 pg (27.0-32.0); MCHC 31.8 g/dL (32.0-37.0); Platelet Count 218 10*3/uL (140-440); RBC 3.31 10*6/uL (4.40-5.60); RDW 13.9 % (11.5-14.5); WBC 25.85 10*3/uL (4.50-10.00)
[2025-06-10 18:54] LABS: MCV 101.5 fL (80.0-97.0)
[2025-06-10 19:02] LABS: African American GFR (CKD) 23 (>60 ml/min/1.73 sqM); Anion Gap 24 mmol/L; Blood Urea Nitrogen 62 mg/dL (9-20); Calcium 8.9 mg/dL (8.4-10.2); Carbon Dioxide 14 mmol/L (22-30); Chloride 96 mmol/L (98-107); Glucose 264 mg/dL (74-99); Non-African American GFR(CKD) 20 (>60 ml/min/1.73 sqM); Potassium 4.3 mmol/L (3.5-5.1); Sodium 134 mmol/L (137-145)
[2025-06-10] MEDS: NOREPINEPHRINE 32 MG in SODIUM CHLORIDE 0.9% 218 ML IV SCH (20:07)
--- NOTE | 2025-06-10 20:29 | XR ---
EXAMINATION TYPE: XR chest 1V portable DATE OF EXAM: 06/10/2025 8:20 PM COMPARISON: Same-day prior chest radiograph. CLINICAL INDICATION: Male, 84 years old with history of lt ptx; [facility] TECHNIQUE: XR chest 1V portable Frontal view of the chest. FINDINGS: Cardiomegaly. Patchy bilateral interstitial opacities and possible small effusions. Increasing now moderate sized l eft pneumothorax measuring up to 5.2 cm in greatest dimension from the pleural surface. No sizable ri ght pneumothorax. No acute osseous abnormality. Endotracheal tube terminates proximal 6.4 cm above t he angela. Enteric tube in appropriate positioning. IMPRESSION: Increasing moderate sized left pneumothorax as described above. Recommend consideration of chest tube if clinically warranted. *Critical findings were relayed at 8:20 PM on 06/10/2025. [facility], , 06/10/2025 8:27 PM
[2025-06-10] MEDS ORDERED: amLODIPine 5 MG TAB PO SCH (21:00)
--- NOTE | 2025-06-10 21:14 | P.CNPUL ---
History of Present Illness Consult date: 06/10/25 Requesting physician: Sulaiman Archuleta Reason for consult: other (Cardiac arrest, ICU management) Chief complaint: Cardiac arrest History of present illness: This is a 84-year-old white male presented to the ER with chest pain. Symptoms started yesterday, pain improved with nitroglycerin yesterday and again he had pain around 3 AM in the morning. Upon arrival to the ER, his discomfort was rated 6/10. Patient felt discomfort and pressure over the chest substernal area. He was also mildly short of breath, but no nausea or diaphoresis. Patient was seen by cardiology on consultation shortly after he arrived to the ER, felt to have acute non-ST elevation myocardial infarction patient also had at the time evidence of mild leukocytosis with chronic kidney disease, and he was also felt to have possibly some component of congestive heart failure. Patient is known to have history of coronary artery disease with previous balloon angioplasty in 1992. He has mild aortic stenosis hypertension diabetes and dyslipidemia. Shortly after patient was taken to the [facility], however upon resting the patient from the stretcher to the [facility] table patient became unresponsive and lost pulse and CPR was performed approximately for 20 minutes. Then there was return of spontaneous circulation however he required intermittent doses of epinephrine. The steeple jack/Dr. Brandon discussed his condition with the daughter at that point in time, and she did not want any further aggressive measures CODE STATUS was changed to DNR. However she agreed to proceed with cardiac catheterization but did not want any further chest compressions/CPR. Cardiac catheterization was performed, PCI of the circumflex was performed PCI of the left main was attempted there was evidence of 20 to 30% LAD disease, 99% circumflex 100% RCA stenosis with [id number] collaterals. Patient had PCI of the circumflex with drug-eluting stent, there was evidence of left-sided filling pressures elevated. And patient required pressors for his cardiogenic shock which apparently developed as he was in the cardiac [facility]. Patient was intubated during CPR he was placed on pressors in the form of epinephrine he is also on vasopressin, and he was admitted to the ICU. Chest x- ray showed clearly evidence of subcutaneous emphysema initially, follow-up chest x-ray showed left sided pneumothorax, small, did not require immediate intervention, I was made aware of this patient, came in to see him around 8 PM r eviewed the chest x-ray, recommended chest tube placement, however the family at that point already making decision to proceed with comfort care and did not want any further intervention. Prior to this I was able to place a right femoral triple-lumen catheter for venous access and the patient was on multiple high- dose pressors. ABG upon his initial presentation to the ER on 100% FiO2 showed a pO2 of 88 pCO2 60 pH of 7.16, his rate was increased to 26, patient received 1 amp of bicarb, his FiO2 remains at 100% and I increased his PEEP to 10. Other labs were noted WBC count is 25.8 hemoglobin 10.7 electrolytes are normal BUN is 62 creatinine 2.84 and bicarb is 14. Anion gap is 24. Troponin has been rising from 6.4 earlier now it is 9.9 at 6:30 PM. Again his chest x-ray clearly showed evidence of left-sided pneumothorax increased in size, moderate, with significant subcutaneous emphysema suggested chest tube placement, family declined and daughter is planning comfort care measures later in the next few hours. CODE STATUS has already been changed to DNR CODE STATUS. Review of Systems ROS unobtainable: due to endotracheal tube Past Medical History Past Medical History: Diabetes Mellitus, Eye Disorder, Hyperlipidemia, Hypertension, Myocardial Infarction (VT), Osteoarthritis (OA), Prostate Disorder, Renal Disease Additional Past Medical History / Comment(s): Macular degeneration. Blood in stool. Catheter after prostate surgery for quite some time, 7-8 yrs ago. Chronic Kidney disease r/t Neprosclerosis. Last Myocardial Infarction Date:: 1991 History of Any Multi-Drug Resistant Organisms: None Reported Past Surgical History: Coronary Bypass/CABG, Joint Replacement, Orthopedic Surgery, Prostate Surgery Additional Past Surgical History / Comment(s): Nose surgery, knee surgery, right knee replacement. Femoral bypass/no stents. Past Anesthesia/Blood Transfusion Reactions: No Reported Reaction Past Psychological History: No Psychological Hx Reported Smoking Status: Former smoker Past Alcohol Use History: None Reported Past Drug Use History: None Reported - Past Family History Father Family Medical History: Cancer Mother Additional Family Medical History / Comment(s): Brain aneurysym. Medications and Allergies Home Medications Medication Instructions Recorded Confirmed Type Aspirin 81 mg PO DAILY 06/16/14 06/10/25 History Vit C/E/Zn/Coppr/Lutein/Zeaxan 1 cap PO BID 06/16/14 06/10/25 History [Preservision Areds 2 Softgel] Atorvastatin [Lipitor] 80 mg PO DAILY 03/10/19 06/10/25 History Cholecalciferol (Vitamin D3) 75 mcg PO DAILY 11/13/22 06/10/25 History [Vitamin D3 (3000 Iu)] amLODIPine [Norvasc] 5 mg PO BID #60 tab 11/21/22 06/10/25 Rx Glimepiride [Amaryl] 1 mg PO BID 01/20/25 06/10/25 History Isosorbide Mononitrate ER [Imdur] 30 mg PO DAILY 01/20/25 06/10/25 History [facility]-3/Dha/Epa/Fish Oil [Fish Oil 1 cap PO DAILY 01/20/25 06/10/25 History 1,000 mg Softgel] Dapagliflozin Propanediol [Farxiga] 10 mg PO DAILY #30 tab 01/22/25 06/10/25 Rx Ranolazine [Ranexa] 500 mg PO Q12HR #60 tab 01/22/25 06/10/25 Rx carvediloL [Coreg] 3.125 mg PO BID-W/MEALS #60 tab 01/22/25 06/10/25 Rx Furosemide [Lasix] 40 mg PO Q2D 06/10/25 06/10/25 History Furosemide [Lasix] 80 mg PO Q2D 06/10/25 06/10/25 History hydrALAZINE HCL [Apresoline] 25 mg PO TID 06/10/25 06/10/25 History Allergies Allergy/AdvReac Type Severity Reaction Status Date / Time ciprofloxacin [From Cipro] Allergy Rash/Hives Verified 06/10/25 10:35 hydrocodone bitartrate Allergy Itching Verified 06/10/25 10:35 [From Vicodin] Penicillins Allergy Rash/Hives Verified 06/10/25 10:35 Sulfa (Sulfonamide Allergy Rash/Hives Verified 06/10/25 10:35 Antibiotics) sulfamethoxazole Allergy Rash/Hives Verified 06/10/25 10:35 [From Bactrim] trimethoprim [From Bactrim] Allergy Rash/Hives Verified 06/10/25 10:35 Physical Exam Vitals: Vital Signs Temp Pulse Pulse Resp BP Pulse Ox FiO2 06/10/25 20:07 100 06/10/25 20:00 100 06/10/25 19:35 65 26 H 85/44 91 L 06/10/25 19:30 65 26 H 81/47 91 L 06/10/25 19:25 65 26 H 80/43 91 L 06/10/25 19:20 65 26 H 80/43 90 L 06/10/25 19:15 65 26 H 84/44 90 L 06/10/25 19:10 66 26 H 85/45 91 L 06/10/25 19:05 66 26 H 78/44 92 L 06/10/25 19:00 66 26 H 79/48 95 06/10/25 18:55 66 26 H 84/47 94 L 06/10/25 18:50 66 26 H 85/46 93 L 06/10/25 18:45 67 26 H 81/46 95 06/10/25 18:40 66 26 H 85/47 94 L 06/10/25 18:35 66 26 H 76/51 93 L 06/10/25 18:30 66 26 H 80/48 92 L 06/10/25 18:25 66 26 H 70/44 91 L 06/10/25 18:20 65 26 H 76/45 90 L 06/10/25 18:15 66 26 H 75/50 91 L 06/10/25 18:10 65 26 H 78/44 90 L 06/10/25 18:05 68 26 H 73/46 90 L 06/10/25 18:00 66 26 H 70/41 89 L 06/10/25 17:55 66 26 H 79/45 90 L 06/10/25 17:50 68 26 H 79/50 91 L 06/10/25 17:45 67 26 H 80/50 91 L 06/10/25 17:40 68 26 H 83/51 90 L 06/10/25 17:35 68 26 H 85/49 90 L 06/10/25 17:30 68 26 H 84/51 89 L 06/10/25 17:25 68 26 H 85/45 89 L 06/10/25 17:20 68 26 H 80/52 90 L 06/10/25 17:15 69 26 H 84/51 91 L 06/10/25 17:10 69 26 H 84/45 92 L 06/10/25 17:05 69 26 H 84/51 93 L 06/10/25 17:00 68 26 H 86/51 94 L 06/10/25 16:55 68 26 H 84/56 92 L 06/10/25 16:50 69 26 H 83/55 92 L 06/10/25 16:45 67 26 H 87/53 91 L 06/10/25 16:40 69 26 H 85/56 91 L 06/10/25 16:35 68 26 H 88/50 91 L 06/10/25 16:30 68 26 H 91/51 92 L 06/10/25 16:25 68 26 H 85/56 92 L 06/10/25 16:20 67 26 H 88/47 92 L 06/10/25 16:15 65 26 H 81/46 91 L 06/10/25 16:10 62 26 H 79/46 91 L 06/10/25 16:05 63 26 H 88/53 92 L 100 06/10/25 16:00 65 26 H 75/45 92 L 100 06/10/25 15:55 64 26 H 63/37 89 L 06/10/25 15:50 53 L 28 H 81/46 88 L 06/10/25 15:45 63 26 H 83/45 91 L 06/10/25 15:40 63 26 H 65/39 90 L 06/10/25 15:35 58 L 26 H 79/43 90 L 06/10/25 15:30 65 26 H 84/45 91 L 06/10/25 15:25 63 26 H 70/44 91 L 06/10/25 15:20 56 L 26 H 83/40 92 L 06/10/25 15:15 59 L 26 H 76/37 92 L 06/10/25 15:10 56 L 27 H 73/41 88 L 06/10/25 15:05 57 L 16 79/42 91 L 06/10/25 15:00 57 L 26 H 79/48 88 L 06/10/25 14:55 59 L 26 H 75/42 88 L 06/10/25 14:50 58 L 26 H 71/41 88 L 06/10/25 14:45 58 L 26 H 73/38 92 L 06/10/25 14:40 53 L 26 H 80/45 92 L 06/10/25 14:35 58 L 26 H 73/44 93 L 06/10/25 14:30 50 L 26 H 74/44 93 L 06/10/25 14:25 52 L 26 H 79/43 95 06/10/25 14:20 53 L 26 H 82/43 95 06/10/25 14:15 54 L 26 H 81/46 95 06/10/25 14:10 55 L 26 H 90/46 94 L 06/10/25 14:05 57 L 26 H 99/51 93 L 06/10/25 14:00 56 L 22 86/52 94 L 06/10/25 13:55 57 L 36 H 84/69 93 L 100 06/10/25 13:50 56 L 23 86/56 95 06/10/25 13:45 53 L 28 H 81/71 92 L 06/10/25 13:40 20 78/46 89 L 06/10/25 13:35 51 L 36 H 76/43 89 L 06/10/25 13:30 97.7 F 49 L 23 75/49 89 L 100 06/10/25 13:25 49 L 21 69/43 87 L 06/10/25 13:15 100 06/10/25 12:16 100 06/10/25 11:42 74 20 101/54 96 06/10/25 11:12 73 20 107/61 92 L 06/10/25 10:45 81 18 94 L 06/10/25 10:11 86 18 104/67 90 L 06/10/25 09:56 92 18 109/60 87 L 06/10/25 09:12 91 18 113/68 92 L 06/10/25 08:53 84 06/10/25 08:40 98.7 F 90 20 115/68 87 L Intake and Output 06/10/25 06/10/25 06/10/25 06:59 14:59 22:59 Intake Total 761.750 6349.461 Output Total 160 Balance 520.802 864.461 Intake: IV 450 475 0.9 KVO 100 Sodium Chloride 0.9% 1, 375 000 ml @ 75 mls/hr IV . [id number] [facility] Rx#:[id number] Intake, IV Titration 70.802 489.461 Amount Cisatracurium 200 mg In 20.818 Sodium Chloride 0.9% 180 ml @ 1 MCG/KG/MIN 6.123 mls/hr IV .Q24H [facility] Rx#: [id number] EPINEPHrine 4 mg In 56.770 382.675 Dextrose 5% in Water 250 ml @ 0.03 MCG/KG/MIN 11. 482 mls/hr IV .[id number] [facility] Rx#:[id number] propofoL 1,000 mg In 14.032 85.968 Empty Bag 1 bag @ 15 MCG/ KG/MIN 9.185 mls/hr IV . [id number] [facility] Rx#:[id number] Other 60 Output: Urine 10 Other 150 Other: Voiding Method Indwelling Catheter Weight 102.058 kg Physical exam revealed an 84 year-old, intubated, sedated, on propofol and on Nimbex. Head: Atraumatic, normocephalic endotracheal tube and orogastric tube are intact. EENT: Pinpoint pupils, no icterus, Chest: Symmetrical chest expansion Lungs: Diminished breath sounds at the left side with significant subcutaneous emphysema with crepitation noted Cardiac: Distant S1-S2, no S3 gallop, 2/6 systolic murmur throughout the preco rdium Abdomen: Obese, distended, tympanitic, no bowel sounds. Extremities: No clubbing edema or cyanosis, diminished distal pulses bilaterally. Musculoskeletal: No deformities, cannot assess range of motion Neurologic: Could not assess patient is sedated and paralyzed with Nimbex Psychiatric: Could not assess Skin: No rashes. Results - Laboratory Findings CBC and BMP: 06/10/25 18:34 06/10/25 18:34 ABG ABG pH 7.16 (7.35-7.45) L* 06/10/25 12:58 ABG pCO2 60 mmHg (35-45) H 06/10/25 12:58 ABG pO2 88 mmHg (83-108) 06/10/25 12:58 ABG O2 Saturation 93.9 % (94-97) L 06/10/25 12:58 PT/INR, D-dimer PT 11.6 sec (10.0-12.5) 06/10/25 09:00 INR 1.1 (<1.2) 06/10/25 09:00 D-Dimer 1.08 mg/L FEU (<0.60) H 06/10/25 09:00 Abnormal lab findings: Abnormal Labs 06/10/25 06/10/25 06/10/25 09:00 09:00 09:00 WBC 13.60 H RBC 3.52 L Hgb 11.4 L Hct 33.6 L MCV MCH 32.4 H MCHC Neutrophils # 11.85 H Lymphocytes # 0.85 L Eosinophils # 0.02 L APTT 20.2 L D-Dimer 1.08 H ABG pH ABG pCO2 ABG O2 Saturation Hemoglobin Sodium 134 L Chloride Carbon Dioxide 21 L BUN 55 H Creatinine 2.26 H Glucose 174 H POC Glucose (mg/dL) Troponin I 06/10/25 06/10/25 06/10/25 09:00 12:15 12:58 WBC RBC Hgb Hct MCV MCH MCHC Neutrophils # Lymphocytes # Eosinophils # APTT D-Dimer ABG pH 7.16 L* ABG pCO2 60 H ABG O2 Saturation 93.9 L Hemoglobin 10.8 L Sodium Chloride Carbon Dioxide BUN Creatinine Glucose POC Glucose (mg/dL) 190 H Troponin I 2.460 H* 06/10/25 06/10/25 06/10/25 13:23 15:46 15:46 WBC RBC Hgb Hct MCV MCH MCHC Neutrophils # Lymphocytes # Eosinophils # APTT 107.8 H* D-Dimer ABG pH ABG pCO2 ABG O2 Saturation Hemoglobin Sodium Chloride Carbon Dioxide BUN Creatinine Glucose POC Glucose (mg/dL) 198 H Troponin I 6.440 H* 06/10/25 06/10/25 06/10/25 18:01 18:34 18:34 WBC 25.85 H RBC 3.31 L Hgb 10.7 L Hct 33.6 L MCV 101.5 H D MCH 32.3 H MCHC 31.8 L Neutrophils # Lymphocytes # Eosinophils # APTT D-Dimer ABG pH ABG pCO2 ABG O2 Saturation Hemoglobin Sodium Chloride Carbon Dioxide BUN Creatinine Glucose POC Glucose (mg/dL) 217 H Troponin I 9.940 H* 06/10/25 18:34 WBC RBC Hgb Hct MCV MCH MCHC Neutrophils # Lymphocytes # Eosinophils # APTT D-Dimer ABG pH ABG pCO2 ABG O2 Saturation Hemoglobin Sodium 134 L Chloride 96 L Carbon Dioxide 14 L BUN 62 H Creatinine 2.84 H Glucose 264 H POC Glucose (mg/dL) Troponin I - Diagnostic Findings Chest x-ray: image reviewed (As noted in HPI there is evidence of congestive heart failure, moderate-sized left-sided pneumothorax, subcutaneous emphysema.) Assessment and Plan Assessment: Impression: Acute non-ST elevation myocardial infarction Cardiac arrest Cardiogenic shock with profound hypotension Acute on chronic disease secondary to acute tubular necrosis and hypotension Left sided pneumothorax with subcutaneous emphysema most likely secondary to CPR and chest compression History of underlying coronary artery disease Status post PCI of circumflex today Suspect anoxic brain injury, patient had prolonged CPR Benign essential hypertension Dyslipidemia Type 2 diabetes Obesity, BMI 32.3 Recommendation: Continue ventilatory support Continue hemodynamic support Offered placement of chest tube, family. Planning to go to comfort care measures and no reason to place the chest tube at this point. Right femoral triple-lumen cath was inserted on emergency basis for venous access since the patient was not receiving pressors Continue to hold blood pressure meds patient was previously on amlodipine Reviewed results of his cardiac catheterization Overall prognostic picture is extremely poor Patient is critically ill We will continue to follow Time with Patient: Greater than 30
[2025-06-10] MEDS: SODIUM CHLORIDE 0.9% 1,000 ML in EMPTY BAG 1 BAG IV SCH (21:31)
[2025-06-10] MEDS: CHLORHEXIDINE GLUCONATE 15 ML CUP MUCOUS MEM SCH (21:32)
[2025-06-10] MEDS: LACTATED RINGERS 500 ML IV ONE (21:34)
[2025-06-10] MEDS ORDERED: ATROPINE OPHTH SOLN 1% 5ML BTL SUBLINGUAL PRN (23:42)
[2025-06-10] MEDS ORDERED: LORazepam 1 MG/0.5 ML VIAL IV PRN (23:42)
[2025-06-11] MEDS: SCOPOLAMINE 1 MG/72 HR PATCH TRANSDERM SCH (00:11)
[2025-06-11] MEDS: MORPHINE SULFATE 4 MG/ML SYRINGE IVP PRN (00:12)
[2025-06-11] MEDS: MORPHINE SULFATE 100 MG in SODIUM CHLORIDE 0.9% 90 ML IV SCH (00:13)
--- NOTE | 2025-06-11 01:17 | OP ---
OPERATIVE REPORT DATE OF SERVICE : PROCEDURE PERFORMED: Placement of a right femoral triple-lumen catheter. PREOPERATIVE DIAGNOSES: Cardiac arrest and profound hypotension. POSTOPERATIVE DIAGNOSES: Cardiac arrest and profound hypotension. The patient needed IV access/central IV access for pressors. This was done on emergency basis. DESCRIPTION OF PROCEDURE: The patient was placed in a supine position, the right groin was prepared in a sterile fashion. Drapes were applied. The right groin was locally anesthetized with lidocaine. Then the right femoral vein was easily cannulated and a guidewire was placed. Area around the guidewire was dilated, triple-lumen catheter inserted over the guidewire, and the guidewire was removed. Good blood flow was noted in the 3 different ports of the triple-lumen catheter, hep locks were applied, and the line was secured in place, no complications. Procedure was well tolerated, and a dressing was applied. Line was secured using 3.0 silk sutures. MMODL / IJN: [id number] /
[2025-06-11 01:43] VITALS: BP 112/99; PULSE 0; RESP 0; TEMP 98.4
[2025-06-11] MEDS ORDERED: HEPARIN SODIUM,PORCINE (1 ML) 2,500 UNIT in SODIUM CHLORIDE 0.9% 250 ML IRRIGATION PRN (07:00)
[2025-06-11] MEDS ORDERED: HEPARIN SODIUM,PORCINE 10,000 UNIT in SODIUM CHLORIDE 0.9% 1,000 ML IRRIGATION PRN (07:00)
--- NOTE | 2025-06-11 08:20 | P.PN ---
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 Objective - Vital Signs Vital signs: Vital Signs Temp 98.4 F 06/10/25 23:05 Pulse 0 L 06/11/25 00:35 Resp 0 L 06/11/25 00:35 BP 112/99 06/11/25 00:35 Pulse Ox 7 L 06/11/25 00:35 FiO2 2 06/11/25 00:30 Intake & Output 06/10/25 06/11/25 06/11/25 18:59 06:59 18:59 Intake Total 5830.012 7045.727 Output Total 10 150 Balance 7084.509 4250.727 Weight 102.058 kg Intake: IV 830 570 0.9 KVO 80 120 Sodium Chloride 0.9% 1, 300 450 000 ml @ 75 mls/hr IV . [id number] [facility] Rx#:[id number] Intake, IV Titration 560.263 633.727 Amount Cisatracurium 200 mg In 20.818 5.154 Sodium Chloride 0.9% 180 ml @ 1 MCG/KG/MIN 6.123 mls/hr IV .Q24H [facility] Rx#: [id number] EPINEPHrine 4 mg In 439.445 305.856 Dextrose 5% in Water 250 ml @ 0.03 MCG/KG/MIN 11. 482 mls/hr IV .[id number] [facility] Rx#:[id number] EPINEPHrine 4 mg In 250.000 Dextrose 5% in Water 250 ml @ 0.03 MCG/KG/MIN 11. 482 mls/hr IV .[id number] [facility] Rx#:[id number] Morphine Sulfate 100 mg 0.767 In Sodium Chloride 0.9% 90 ml @ 2 MG/HR 2 mls/hr IV .Q24H [facility] Rx#: [id number] propofoL 1,000 mg In 100.000 71.95 Empty Bag 1 bag @ 15 MCG/ KG/MIN 9.185 mls/hr IV . [id number] [facility] Rx#:[id number] Other 60 Output: Urine 10 0 Other 150 Other: Voiding Method Indwelling Catheter Indwelling Catheter - Labs CBC & Chem 7: 06/10/25 18:34 07/26/25 18:34 Labs: Abnormal Lab Results - Last 24 Hours (Table) 06/10/25 06/10/25 06/10/25 Range/Units 09:00 09:00 09:00 WBC 13.60 H (4.50-10.00) 10*3/uL RBC 3.52 L (4.40-5.60) 10*6/uL Hgb 11.4 L (13.0-17.0) g/dL Hct 33.6 L (39.6-50.0) % MCV (80.0-97.0) fL MCH 32.4 H (27.0-32.0) pg MCHC (32.0-37.0) g/dL Neutrophils # 11.85 H (1.80-7.70) 10*3/uL Lymphocytes # 0.85 L (0.90-5.00) 10*3/uL Eosinophils # 0.02 L (0.04-0.35) 10*3/uL APTT 20.2 L (22.0-30.0) sec D-Dimer 1.08 H (<0.60) mg/L FEU ABG pH (7.35-7.45) ABG pCO2 (35-45) mmHg ABG O2 Saturation (94-97) % Hemoglobin (13.0-17.5) gm/dL Sodium 134 L (137-145) mmol/L Chloride (98-107) mmol/L Carbon Dioxide 21 L (22-30) mmol/L BUN 55 H (9-20) mg/dL Creatinine 2.26 H (0.66-1.25) mg/dL Glucose 174 H (74-99) mg/dL POC Glucose (mg/dL) (70-110) mg/dL Troponin I (0.000-0.034) ng/mL 06/10/25 06/10/25 06/10/25 Range/Units 09:00 12:15 12:58 WBC (4.50-10.00) 10*3/uL RBC (4.40-5.60) 10*6/uL Hgb (13.0-17.0) g/dL Hct (39.6-50.0) % MCV (80.0-97.0) fL MCH (27.0-32.0) pg MCHC (32.0-37.0) g/dL Neutrophils # (1.80-7.70) 10*3/uL Lymphocytes # (0.90-5.00) 10*3/uL Eosinophils # (0.04-0.35) 10*3/uL APTT (22.0-30.0) sec D-Dimer (<0.60) mg/L FEU ABG pH 7.16 L* (7.35-7.45) ABG pCO2 60 H (35-45) mmHg ABG O2 Saturation 93.9 L (94-97) % Hemoglobin 10.8 L (13.0-17.5) gm/dL Sodium (137-145) mmol/L Chloride (98-107) mmol/L Carbon Dioxide (22-30) mmol/L BUN (9-20) mg/dL Creatinine (0.66-1.25) mg/dL Glucose (74-99) mg/dL POC Glucose (mg/dL) 190 H (70-110) mg/dL Troponin I 2.460 H* (0.000-0.034) ng/mL 06/10/25 06/10/25 06/10/25 Range/Units 13:23 15:46 15:46 WBC (4.50-10.00) 10*3/uL RBC (4.40-5.60) 10*6/uL Hgb (13.0-17.0) g/dL Hct (39.6-50.0) % MCV (80.0-97.0) fL MCH (27.0-32.0) pg MCHC (32.0-37.0) g/dL Neutrophils # (1.80-7.70) 10*3/uL Lymphocytes # (0.90-5.00) 10*3/uL Eosinophils # (0.04-0.35) 10*3/uL APTT 107.8 H* (22.0-30.0) sec D-Dimer (<0.60) mg/L FEU ABG pH (7.35-7.45) ABG pCO2 (35-45) mmHg ABG O2 Saturation (94-97) % Hemoglobin (13.0-17.5) gm/dL Sodium (137-145) mmol/L Chloride (98-107) mmol/L Carbon Dioxide (22-30) mmol/L BUN (9-20) mg/dL Creatinine (0.66-1.25) mg/dL Glucose (74-99) mg/dL POC Glucose (mg/dL) 198 H (70-110) mg/dL Troponin I 6.440 H* (0.000-0.034) ng/mL 06/10/25 06/10/25 06/10/25 Range/Units 18:01 18:34 18:34 WBC 25.85 H (4.50-10.00) 10*3/uL RBC 3.31 L (4.40-5.60) 10*6/uL Hgb 10.7 L (13.0-17.0) g/dL Hct 33.6 L (39.6-50.0) % MCV 101.5 H D (80.0-97.0) fL MCH 32.3 H (27.0-32.0) pg MCHC 31.8 L (32.0-37.0) g/dL Neutrophils # (1.80-7.70) 10*3/uL Lymphocytes # (0.90-5.00) 10*3/uL Eosinophils # (0.04-0.35) 10*3/uL APTT (22.0-30.0) sec D-Dimer (<0.60) mg/L FEU ABG pH (7.35-7.45) ABG pCO2 (35-45) mmHg ABG O2 Saturation (94-97) % Hemoglobin (13.0-17.5) gm/dL Sodium (137-145) mmol/L Chloride (98-107) mmol/L Carbon Dioxide (22-30) mmol/L BUN (9-20) mg/dL Creatinine (0.66-1.25) mg/dL Glucose (74-99) mg/dL POC Glucose (mg/dL) 217 H (70-110) mg/dL Troponin I 9.940 H* (0.000-0.034) ng/mL 06/10/25 Range/Units 18:34 WBC (4.50-10.00) 10*3/uL RBC (4.40-5.60) 10*6/uL Hgb (13.0-17.0) g/dL Hct (39.6-50.0) % MCV (80.0-97.0) fL MCH (27.0-32.0) pg MCHC (32.0-37.0) g/dL Neutrophils # (1.80-7.70) 10*3/uL Lymphocytes # (0.90-5.00) 10*3/uL Eosinophils # (0.04-0.35) 10*3/uL APTT (22.0-30.0) sec D-Dimer (<0.60) mg/L FEU ABG pH (7.35-7.45) ABG pCO2 (35-45) mmHg ABG O2 Saturation (94-97) % Hemoglobin (13.0-17.5) gm/dL Sodium 134 L (137-145) mmol/L Chloride 96 L (98-107) mmol/L Carbon Dioxide 14 L (22-30) mmol/L BUN 62 H (9-20) mg/dL Creatinine 2.84 H (0.66-1.25) mg/dL Glucose 264 H (74-99) mg/dL POC Glucose (mg/dL) (70-110) mg/dL Troponin I (0.000-0.034) ng/mL
[2025-06-11] MEDS ORDERED: CLOPIDOGREL 75 MG TAB PO SCH (09:00)
[2025-06-11] MEDS ORDERED: ISOSORBIDE MONONITRATE ER 30 MG TAB.ER.24H PO SCH (09:00)
[2025-06-11] MEDS ORDERED: ASPIRIN 325 MG TAB PO SCH (09:00)
[2025-06-11] MEDS ORDERED: DAPAGLIFLOZIN PROPANEDIOL 10 MG TABLET PO SCH (09:00)
[2025-06-11] MEDS ORDERED: ATORVASTATIN 80 MG TAB PO SCH (09:00)
[2025-06-11] MEDS ORDERED: ASPIRIN 81 MG PO SCH ×2 (09:00)
[2025-06-11] MEDS ORDERED: NON FORMULARY DRUG (Omega-3/Dha/Epa/Fish Oil [Fish Oil 1,000 Mg Softgel] 1 EACH Capsule) PO SCH (09:00)
--- NOTE | 2025-06-11 09:41 | P.DS ---
Providers Date of admission: 06/10/25 10:01 Expected date of discharge: 06/11/25 Attending physician: Sulaiman Archuleta MD Consults: 06/10/25 09:59 Consult Physician Urgent Consulting Provider: Bertrand Cho Consult Reason/Comments: nstemi Do you want consulting provider notified?: Yes 06/10/25 11:05 Consult Physician Routine Consulting Provider: Yun Cabrera Consult Reason/Comments: CKD, GOING FOR CATH TODAY Do you want consulting provider notified?: Yes 06/10/25 13:12 Consult Physician Routine Consulting Provider: [facility] Consult Reason/Comments: Post Interventional Patient Do you want consulting provider notified?: Already Contacted 06/10/25 13:32 Consult Physician Stat Consulting Provider: Maria Isabel Lundberg Consult Reason/Comments: icu management Do you want consulting provider notified?: Already Contacted [facility]: Patient , time of was called on 06/11/2025 at 12:36 AM. Discharge Diagnosis: NSTEMI New onset left bundle branch block Cardiac arrest Cardiogenic shock, requiring vasopressors Left-sided pneumothorax with subcutaneous emphysema, secondary to CPR/compressions Acute kidney injury on chronic kidney disease, secondary to above History of CAD with history of previous balloon angioplasty Acute CHF exacerbation, suspect diastolic based upon previous echocardiogram completed 01/20/25 Aortic stenosis Hypertension Hyperlipidemia Non-Insulin dependent diabetes mellitus Hospital Course: Patient was a very pleasant 80y/o male with a past medical history CAD s/p balloon angioplasty, aortic stenosis, hypertension, hyperlipidemia, pks-[id number]-[id number] diabetes mellitus, chronic kidney disease stage IIIb, hernia, and BPH with previous TURP. He reported following Dr. Paige for his PCP and with Dr. Brandon, for cardiology. Patient presented to the emergency department on 06/10/25 with a chief complaint of chest pain and shortness of breath. Patient reported the symptoms have occurred off and on over the last month but reported yesterday became persistent and reoccurring. Patient reported taking nitro which initially improved his pain, but stated soon after the pain returned. Patient reported taking 3 or 4 nitro yesterday and again 3 sublingual nitro tablets today but stated pain was no longer improving and became severe and he felt a constant continuous pressure to his midsternal chest described as though an elephant was pounding on his chest. Patient denied having any headache, lightheadedness, dizziness, palpitations, cough or congestion, abdominal pain, nausea, vomiting, or experiencing any numbness/tingling/weakness in his extremities. He reported mild swelling in his lower extremities worsening over the past few months in which he had been taking "water pills" at home for management. Vital signs upon arrival show blood pressure 115/68, heart rate 98, respiratory rate 20, temp 98.7 F, and SpO2 of 87% on room air requiring placement on supplemental oxygen. At time of assessment patient on 6 L O2 with SpO2 of 92%. EKG completed showing sinus rhythm at 86 bpm with a left bundle branch block. Left bundle branch block appears to be a new finding when compared to EKG completed 01/20/2025. Chest x- ray completed showing pulmonary vascular congestion with scattered infiltrates and small effusions consistent with congestive heart failure. Labs completed and reviewed. CBC showing leukocytosis with WBC count of 13.60, normocytic anemia with hemoglobin of 11.4. Coagulation profile showing low PTT of 20.2 and an elevated D-dimer of 1.08. BMP showing sodium 134, bicarb 21, and acute kidney injury with BUN of 55, creatinine 2.26, and GFR of 26 with baseline creatinine appearing to be around 1.8. Blood glucose 174. Calcium 8.8. Magnesium 1.7. Liver profile unremarkable. Troponin was elevated at 2.460 and proBNP 12,300. Patient was started on low intensity heparin infusion for treatment of NSTEMI along with nitro infusion. At time of admission patient reported chest pressure remained, but significantly improved and rated 2 out of 10. He remained on 6 L O2 via nasal cannula, but speaking in full sentences and reported only mild discomfort. Pt was admitted for NSTEMI, new onset left bundle branch block, and acute CHF. He was taken for heart cath and shortly after arrival to [facility] room 3, pt suddenly went unresponsive and lost his pulse. Due to witnessed cardiac arrest, VENKAT CONKLIN was called and CPR with ACLS interventions was immediately started. ROSC was obtained after 19 minutes. Keyboarding Clerk, Dr. Brandon spoke with patient's daughter, Sarahi to discuss her father's critical condition. At this time, family requested CODE STATUS to be changed to DNR stating they were in agreement with continuing heart catheterization and treatment, but if Mr. Silva lost his pulse again they did not want any furhter chest compressions. Heart cath completed showing 20 to 30% stenosis of LAD, 99% stenosis of left circumflex, and 100% stenosis of RCA with [id number] collaterals. 2 stents were placed to circumflex with one stent placed in the distal circumflex followed by second stent to proximal circumflex. Patient became very hypotensive secondary to cardiogenic shock status post cardiac arrest and was started on epinephrine infusion. He was transfterred from [facility] to ICU. Chest x-ray showed evidence of subcutaneous emphysema initially, follow-up chest x-ray then revealing left sided pneumothorax. ICU physician, Dr. Lundberg went to bedside to discuss patient's condition and recommendations with family. Relief Manager recommendied chest tube placement for treatment of pneumothorax increasing in size, and family declined chest tube placement along with any further interventions at this time. Patient's daughter, Sarahi made the decision to make her father comfort measures only. Per family request, comfort measures initiated and patient was extubated on 06/11/25 at 12:24 AM and per documentation in chart, patient passed peacefully with daughter at bedside on 06/11/2025 at 12:36 AM. Patient , time of was called on 06/11/2025 at 12:36 AM. This document was prepared using [employer] dictation software. Please allow for errors in grainer machine while rare they do occur. Plan - Discharge Summary Discharge Rx Participant: Yes New Discharge Prescriptions: No Action Aspirin 81 mg PO DAILY Vit C/E/Zn/Coppr/Lutein/Zeaxan [Preservision Areds 2 Softgel] 1 cap PO BID Atorvastatin [Lipitor] 80 mg PO DAILY Cholecalciferol (Vitamin D3) [Vitamin D3 (3000 Iu)] 75 mcg PO DAILY Glimepiride [Amaryl] 1 mg PO BID Isosorbide Mononitrate ER [Imdur] 30 mg PO DAILY carvediloL [Coreg] 3.125 mg PO BID-W/MEALS #60 tab Dapagliflozin Propanediol [Farxiga] 10 mg PO DAILY #30 tab Furosemide [Lasix] 40 mg PO Q2D amLODIPine [Norvasc] 5 mg PO BID #60 tab [place]-3/Dha/Epa/Fish Oil [Fish Oil 1,000 mg Softgel] 1 cap PO DAILY Ranolazine [Ranexa] 500 mg PO Q12HR #60 tab Furosemide [Lasix] 80 mg PO Q2D hydrALAZINE HCL [Apresoline] 25 mg PO TID Discharge Medication List Aspirin 81 mg PO DAILY 06/16/14 [History] Vit C/E/Zn/Coppr/Lutein/Zeaxan [Preservision Areds 2 Softgel] 1 cap PO BID 06/16/14 [History] Atorvastatin [Lipitor] 80 mg PO DAILY 03/10/19 [History] Cholecalciferol (Vitamin D3) [Vitamin D3 (3000 Iu)] 75 mcg PO DAILY 11/13/22 [History] amLODIPine [Norvasc] 5 mg PO BID #60 tab 11/21/22 [Rx] Glimepiride [Amaryl] 1 mg PO BID 01/20/25 [History] Isosorbide Mononitrate ER [Imdur] 30 mg PO DAILY 01/20/25 [History] [place]-3/Dha/Epa/Fish Oil [Fish Oil 1,000 mg Softgel] 1 cap PO DAILY 01/20/25 [History] Dapagliflozin Propanediol [Farxiga] 10 mg PO DAILY #30 tab 01/22/25 [Rx] Ranolazine [Ranexa] 500 mg PO Q12HR #60 tab 01/22/25 [Rx] carvediloL [Coreg] 3.125 mg PO BID-W/MEALS #60 tab 01/22/25 [Rx] Furosemide [Lasix] 40 mg PO Q2D 06/10/25 [History] Furosemide [Lasix] 80 mg PO Q2D 06/10/25 [History] hydrALAZINE HCL [Apresoline] 25 mg PO TID 06/10/25 [History] Discharge Disposition: - Preliminary Cause of Preliminary Cause of : ACUTE NSTEMi, Cardiogenic shock
--- NOTE | 2025-06-11 14:27 | CA ---
Transthoracic Echo Report Name: Corbin Silva Age: 84 Gender: M : 1940 Exam Date: 06/10/2025 13:54 Exam Location: [facility] Ht (in): 70 Wt (lb): 225 Ordering Physician: Alec Roy DO Attending/Referring Phys: Nuclear Equipment Sales Engineer Nadia Iqbal RDCS Procedure CPT: Indications: nstemi Cardiac Hx: echo attempted Technical Quality: Very technically difficult study Contrast 1: Total Dose (mL): Contrast 2: Total Dose (mL): MEASUREMENTS (Male / Female) Normal Values FINDINGS Left Ventricle Left ventricular ejection fraction is estimated at 40-45 %. Right Ventricle Right Atrium Left Atrium Mitral Valve Aortic Valve Tricuspid Valve Pulmonic Valve Pericardium No pericardial effusion. Aorta CONCLUSIONS Very technically difficult study. Limited study, poor acounstic windows LVERF 40% No pericardial effusion Previewed by: Dr Josue Gray (Electronically Signed) Final Date: 11 June 2025 14:26
[2025-06-15 16:40] LABS: LD Isoenzymes 1 21 % (18-32); LD Isoenzymes 2 27 % (29-42); LD Isoenzymes 3 19 % (14-30); LD Isoenzymes 4 11 % (6-13); LD Isoenzymes 5 22 % (5-18); Lactacte Dehydrogenase(LD) ISO 360 U/L (120-250)
== END 2025-06-11 01:57 | disposition expired | DRG 321 ==
LOC: EC 08:32 → 3SCARD 10:01 → 2SICU 12:55
PROVIDERS: ADMIT Family Medicine; ATTEND Family Medicine
PROC: B2111ZZ Fluoroscopy of Multiple Coronary Arteries using Low Osmolar Contrast (ICD-10-PCS; 2025-06-10)
PROC: B240ZZ3 Ultrasonography of Single Coronary Artery, Intravascular (ICD-10-PCS; 2025-06-10)
PROC: 3E043XZ Introduction of Vasopressor into Central Vein, Percutaneous Approach (ICD-10-PCS; 2025-06-10)
PROC: 06HY33Z Insertion of Infusion Device into Lower Vein, Percutaneous Approach (ICD-10-PCS; 2025-06-10)
PROC: 0BH17EZ Insertion of Endotracheal Airway into Trachea, Via Natural or Artificial Opening (ICD-10-PCS; 2025-06-10)
PROC: 5A1935Z Respiratory Ventilation, Less than 24 Consecutive Hours (ICD-10-PCS; 2025-06-10)
PROC: 027034Z Dilation of Coronary Artery, One Artery with Drug-eluting Intraluminal Device, Percutaneous Approach (ICD-10-PCS; principal; 2025-06-10 11:36)
PROC: 5A12012 Performance of Cardiac Output, Single, Manual (ICD-10-PCS; 2025-06-10 11:36)
PROC: 4A023N7 Measurement of Cardiac Sampling and Pressure, Left Heart, Percutaneous Approach (ICD-10-PCS; 2025-06-10 11:36)
DX: I21.4 Non-ST elevation (NSTEMI) myocardial infarction (principal); I50.33 Acute on chronic diastolic (congestive) heart failure; N17.0 Acute kidney failure with tubular necrosis; I46.2 Cardiac arrest due to underlying cardiac condition; R57.0 Cardiogenic shock; I13.0 Hypertensive heart and chronic kidney disease with heart failure and stage 1 through stage 4 chronic kidney disease, or unspecified chronic kidney disease; N18.32 Chronic kidney disease, stage 3b; E11.22 Type 2 diabetes mellitus with diabetic chronic kidney disease; E66.9 Obesity, unspecified; D64.9 Anemia, unspecified; I35.0 Nonrheumatic aortic (valve) stenosis; J93.9 Pneumothorax, unspecified; T79.7XXA Traumatic subcutaneous emphysema, initial encounter; Z51.5 Encounter for palliative care; Z66 Do not resuscitate; D72.829 Elevated white blood cell count, unspecified; I44.7 Left bundle-branch block, unspecified; N40.0 Benign prostatic hyperplasia without lower urinary tract symptoms; E78.5 Hyperlipidemia, unspecified; I25.10 Atherosclerotic heart disease of native coronary artery without angina pectoris; Z68.32 Body mass index [BMI] 32.0-32.9, adult; Z95.1 Presence of aortocoronary bypass graft; I25.2 Old myocardial infarction; Z87.891 Personal history of nicotine dependence; Z79.82 Long term (current) use of aspirin; Z79.84 Long term (current) use of oral hypoglycemic drugs; Z79.899 Other long term (current) drug therapy; Z90.79 Acquired absence of other genital organ(s); Z96.651 Presence of right artificial knee joint; T81.82XA Emphysema (subcutaneous) resulting from a procedure, initial encounter
CPT/HCPCS: 36415; 71045; 71046; 80048; 80053; 82805; 83625; 83735; 83880; 84484; 85025; 85027; 85379; 85610; 85730; 92978; 93005; 93308; 93458; 94002; 94003; 96365; 96368; 96375; 99291